=== PATIENT | female | born 1995 | race Caucasian/White ===

== ENCOUNTER 2017-05-26 09:43 | Outpatient (RCR) | payer OTHER, SELFPAY | END 2017-06-14 23:59 | LOC: NS 09:43 | PROVIDERS: Family Provider Family Medicine; PCP Family Medicine; Visit Provider Family Medicine | DX: E66.9 Obesity, unspecified (principal); Z71.3 Dietary counseling and surveillance | CPT/HCPCS: 97803 ==

== ENCOUNTER 2017-07-07 10:00 | Outpatient (RCR) | payer OTHER, SELFPAY ==
[2017-06-05 16:15] VITALS: BP 114/82
[2017-06-07 08:10] VITALS: BMI 33.0
== END 2017-07-12 23:59 ==
LOC: NS 10:00
PROVIDERS: Family Provider Family Medicine; PCP Family Medicine; Visit Provider Family Medicine
DX: E66.9 Obesity, unspecified (principal); Z71.3 Dietary counseling and surveillance
CPT/HCPCS: 97803

== ENCOUNTER 2017-08-01 12:18 | Outpatient (RCR) | payer OTHER, SELFPAY | END 2017-08-12 23:59 | LOC: NS 12:18 | PROVIDERS: Family Provider Family Medicine; PCP Family Medicine; Visit Provider Family Medicine | DX: E66.9 Obesity, unspecified (principal); Z71.3 Dietary counseling and surveillance | CPT/HCPCS: 97803 ==

== ENCOUNTER 2017-08-18 08:31 | Outpatient (RCR) | payer OTHER, SELFPAY | END 2017-08-18 08:32 | LOC: NS 08:31 | PROVIDERS: Family Provider Family Medicine; PCP Family Medicine; Visit Provider Family Medicine | DX: E66.9 Obesity, unspecified (principal); Z71.3 Dietary counseling and surveillance | CPT/HCPCS: 97803 ==

== ENCOUNTER 2017-10-06 09:45 | Outpatient (RCR) | payer OTHER, SELFPAY | END 2017-10-12 23:59 | LOC: NS 09:45 | PROVIDERS: Family Provider Family Medicine; PCP Family Medicine; Visit Provider Family Medicine | DX: E66.9 Obesity, unspecified (principal); Z71.3 Dietary counseling and surveillance | CPT/HCPCS: 97803 ==

== ENCOUNTER 2017-11-03 08:03 | Outpatient (RCR) | payer OTHER, SELFPAY | END 2017-11-11 23:59 | LOC: NS 08:03 | PROVIDERS: Family Provider Family Medicine; PCP Family Medicine; Visit Provider Family Medicine | DX: E66.9 Obesity, unspecified (principal); Z71.3 Dietary counseling and surveillance | CPT/HCPCS: 97803 ==

== ENCOUNTER 2017-11-24 08:04 | Outpatient (RCR) | payer OTHER, SELFPAY | END 2017-11-24 08:05 | disposition home or self-care (01) | LOC: NS 08:04 | PROVIDERS: Family Provider Family Medicine; PCP Family Medicine; Visit Provider Family Medicine | DX: E66.9 Obesity, unspecified (principal); Z71.3 Dietary counseling and surveillance | CPT/HCPCS: 97803 ==

== ENCOUNTER → 2018-06-25 14:40 | Outpatient (CLI) | payer OTHER, SELFPAY ==
[2018-06-25 14:31] VITALS: BMI 31.8
[2018-06-25 16:01] LABS: Absolute Lymphocyte Count 1.71 X10^3/ul (0.83-4.51); Absolute Neutrophil Count 5.9 X10^3/uL (2.0-7.7); Basophil# 0.02 X10^3/uL; Basophil% 0.2 % (0-1); Eosinophil# 0.02 X10^3/uL; Eosinophils% 0.2 % (0-5); Hematocrit 41.2 % (37-47); Hemoglobin 13.4 g/dl (12.0-15.0); Lymphocyte # 1.71 X10^3/ul (4.0); Lymphocyte % 20.5 % (19-41); Mean Corp Hgb Conc 32.5 g/gl (32-36); Mean Corpuscular Hgb 31.2 pg (27.0-32.0); Mean Corpuscular Volume 95.8 fL (81-99); Mean Platelet Vol. 12.3 fl (6.2-12.0); Monocyte# 0.68 X10^3/uL; Monocyte% 8.2 % (0-10); Neutrophil # 5.89 X10^3/uL (2.7-7.7); Neutrophil % 70.8 % (47-70); Platelet Count 170 K/mm3 (150-450); RBC Distribution Width CV 13.7 % (11.6-14.6); RBC Distribution Width SD 46.3 fl (35.1-43.9); White Blood Count 8.3 K/mm3 (4.4-11.0)
[2018-06-25 16:03] LABS: POSITIVE COUNT NO; POSITIVE DIFFERENTIAL NO; POSITIVE MORPHOLOGY NO
[2018-06-25 16:31] LABS: Follicle Stimulating Hormone 5.6 mIU/mL; Thyroid Stim Hormone (TSH) 1.31 uIU/mL (0.358-3.74)
[2018-06-28 04:09] LABS: DHEA Sulfate 221.6 ug/dL (84.8-378.0)
[2018-06-29 22:43] LABS: Testosterone Free 3.9 pg/mL (0.0-4.2)
[2018-07-04 10:45] LABS: 17-Hydroxyprogesterone 64 ng/dL (.)
== END ==
PROVIDERS: Family Provider Family Medicine; PCP Family Medicine; Referring Provider Obstetrics & Gynecology; Visit Provider Obstetrics & Gynecology
DX: E28.2 Polycystic ovarian syndrome (principal)
CPT/HCPCS: 36415; 82627; 83001; 83498; 84146; 84402; 84443; 85025; 82626

== ENCOUNTER → 2018-07-09 15:15 | Outpatient (CLI) | payer OTHER, SELFPAY ==
[2018-07-09 15:15] VITALS: BMI 34.0
== END ==
PROVIDERS: Family Provider Family Medicine; PCP Family Medicine; Referring Provider Otolaryngology Otolaryngology/Facial Plastic Surgery; Visit Provider Otolaryngology Otolaryngology/Facial Plastic Surgery
DX: J32.9 Chronic sinusitis, unspecified (principal)
CPT/HCPCS: 87070; 87205

== ENCOUNTER → 2018-09-21 | Outpatient (CLI) | payer OTHER, SELFPAY ==
[2018-07-09 15:15] VITALS: BMI 34.0
[2018-09-21 12:21] LABS: Potassium 3.9 mmol/L (3.5-5.1)
== END | disposition home or self-care (01) ==
LOC: BFHLAB 10:31
PROVIDERS: Family Provider Family Medicine; PCP Family Medicine; Visit Provider Dermatology
DX: L70.0 Acne vulgaris (principal); L71.8 Other rosacea; E28.2 Polycystic ovarian syndrome; L21.8 Other seborrheic dermatitis; Z79.899 Other long term (current) drug therapy
CPT/HCPCS: 36415; 84132

== ENCOUNTER → 2018-12-26 | Outpatient (CLI) | payer OTHER, SELFPAY ==
[2018-12-26 09:43] VITALS: BMI 34.0
[2018-12-26 10:57] LABS: Cholesterol 155 mg/dL (200); Glucose 96 mg/dL (74-106); High Density Lipoprotein 51 mg/dL; Triglycerides 113 mg/dL; Very Low Density Lipoprotein 23 mg/dL (5-40)
[2019-01-01 08:43] LABS: HPV Reflexed? NOT INDICATED
== END | disposition home or self-care (01) ==
PROVIDERS: Family Provider Family Medicine; PCP Family Medicine; Referring Provider Obstetrics & Gynecology; Visit Provider Obstetrics & Gynecology
DX: E28.2 Polycystic ovarian syndrome (principal); Z12.4 Encounter for screening for malignant neoplasm of cervix
CPT/HCPCS: 36415; 80061; 82947; 87624; 88175; G0145

== ENCOUNTER → 2019-10-18 08:50 | Outpatient (CLI) | payer OTHER, SELFPAY ==
[2018-12-26 09:43] VITALS: BMI 34.0
[2019-10-18 12:57] LABS: Potassium 3.9 mmol/L (3.5-5.1)
== END ==
PROVIDERS: PCP Family Medicine; Visit Provider Dermatology
DX: E28.2 Polycystic ovarian syndrome (principal); L21.8 Other seborrheic dermatitis; L70.0 Acne vulgaris; L71.8 Other rosacea; Z79.899 Other long term (current) drug therapy
CPT/HCPCS: 36415; 84132

== ENCOUNTER → 2020-03-13 10:46 | Outpatient (CLI) | payer OTHER, SELFPAY ==
[2020-02-27 11:19] VITALS: BMI 34.4
== END ==
PROVIDERS: PCP Family Medicine; Referring Provider Family Medicine; Visit Provider Family Medicine
DX: Z20.828 Contact with and (suspected) exposure to other viral communicable diseases (principal)
CPT/HCPCS: 87635; C9803; U0003

== ENCOUNTER → 2020-04-30 | Outpatient (CLI) | payer OTHER, SELFPAY ==
[2020-02-27 11:19] VITALS: BMI 34.4
== END | disposition home or self-care (01) ==
LOC: LABSPEC 18:16
PROVIDERS: PCP Family Medicine; Referring Provider Family Medicine; Visit Provider Family Medicine
DX: Z03.818 Encounter for observation for suspected exposure to other biological agents ruled out (principal)
CPT/HCPCS: 87635; C9803; U0003

== ENCOUNTER → 2020-09-22 13:59 | Outpatient (CLI) | payer OTHER, SELFPAY ==
[2020-02-27 11:19] VITALS: BMI 34.4
[2020-09-22 15:19] LABS: Potassium 3.5 mmol/L (3.5-5.1)
== END ==
PROVIDERS: PCP Family Medicine; Referring Provider Dermatology; Visit Provider Dermatology
DX: L70.0 Acne vulgaris (principal); Z79.899 Other long term (current) drug therapy; L21.8 Other seborrheic dermatitis; L71.8 Other rosacea; E28.2 Polycystic ovarian syndrome
CPT/HCPCS: 36415; 84132

== ENCOUNTER → 2021-03-12 08:03 | Outpatient (CLI) | payer OTHER, SELFPAY ==
[2021-03-12 09:30] LABS: Cholesterol 140 mg/dL (200); Glucose 103 mg/dL (74-106); High Density Lipoprotein 50 mg/dL; Triglycerides 107 mg/dL; Very Low Density Lipoprotein 21 mg/dL (5-40)
== END ==
PROVIDERS: PCP Family Medicine; Referring Provider Obstetrics & Gynecology; Visit Provider Obstetrics & Gynecology
DX: E28.2 Polycystic ovarian syndrome (principal)
CPT/HCPCS: 36415; 80061; 82947

== ENCOUNTER 2021-05-24 17:30 | Outpatient (RCR) | payer OTHER, SELFPAY ==
--- NOTE | 2021-05-06 11:43 | HP.OTEVAL ---
Patient's Visit Information MELISSA DA SILVA is a 25 year old F, referred to Occupational Therapy by JONATHAN FARFAN, with a diagnosis of left ulnar nerve lesion. 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 pt would like to know what she can do to alleviate her symptoms. - Pain left UE 4 Pain Intensity Range: 7 - ROM Elbow: right/left WNL ROM Comments: no ROM limitations - Strength Blintze Roller: right 55# left 40# Lateral Pinch: right 14# left 16# Tripod Pinch: right 14# left 12# Tip-to-Tip Pinch: right 10# left 4# - Sensation Thumb: right 2.83 left 2.83 Index: right 2.83 left 2.83 Middle: right 2.83 left 2.83 Ring: right 2.83 left 2.83 Little: right 2.83 left 2.83 - Quick DASH-Disab of Arm,Shoulder& Hand Quick DASH Score: 18.3325 - Goals Goal:: pt will report left UE pain no greater than 2/10 with use of left UE with ADLs and IADls by D/C Goal:: pt will demo understanding of using proper work station ergo to limit nerve tension with daily tasks by d/c Goal:: pt will demo increase in scapula strength demo by good seated posture by d.c - Rehabilitation General Assessment: pt demo with positive ulnar nerve involvement- pt dem with poor sitting posture- pt has increase symptoms of ulnar nerve involvement. Symptoms limit pts ind. with ADls and work tasks. pt would benefit from skilled OT services 2x week for 6 weeks- to return pt to her PLOF. Today therapist ed. pt on dx. computer work station ergo- ulnar nerve glides and will transition pt to posture strengthening as tolerated. Rehabilitation Potential: Good - Anticipated Interventions A/AAROM/PROM, Triggerpoint Release, Modalities, Ergonomic Education, Education re assistive Equipment, Education re Diagnosis, Home Program - Visit Plan Frequency: 2x /Week Duration: 6 Weeks General Plan: therapist will initiate ROM, ulnar nerve glides - ed. on computer work station ergo- and posture strengthening- as tolerated TEXT: Thank you for the opportunity to evaluate your patient. For Medicare and Medicare HMO plans, please review the plan of care and approve it. It will need to be FAXED BACK to us at [phone] for Medicare purposes. Please let me know if there are questions or concerns regarding this plan of care. Physician Signature: Date:
--- NOTE | 2021-05-24 17:53 | HP.OTDCSUM ---
It has been my pleasure to treat MELISSA DA SILVA under orders from JONATHAN FARFAN, for the diagnosis of left ulnar nerve lesion for a total of 6 visit(s). Please see the following information for a summary of their discharge status. 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 left lateral pinch 16# same as eval. left tripod pinch 12# same as eval. left tip pinch 6# increase from 4#. pain has decreased pt is ed. on work station and ulnar nerve glides- pt was also ed. on postural stretching to limit rolled shoulders and neck forward position with work station. pt states symptoms improved by 50%. pt demo understanding of her HEP Patient Goals: Decrease Pain, Use Hand/Wrist/Arm Normally Again, Decrease Tingling/Numbness Goal:: pt will report left UE pain no greater than 2/10 with use of left UE with ADLs and IADls by D/C pt met goal Goal:: pt will demo understanding of using proper work station ergo to limit nerve tension with daily tasks by d/c met goal Goal:: pt will demo increase in scapula strength demo by good seated posture by d.c pt met goal Plan: pt has met goals will D.C pt with HEP pt demo understanding and agrees to POC. Discharge Comments: pt was seen in OT 6 visits- pt made changes to her work station and continues with a HEP of ulnar neve glides and postural stretches and strengthening- as well as pt ed. on prolonged positioning- pt doing better and will cont with her HEP and return to dr. is symptoms return. If there are questions or concerns regarding this patient's occupational therapy, please fell free to call me at [phone]. Thank you for the referral of this patient. Sincerely, Mariann Zapata, OTR/L, CHT
== END 2021-05-24 19:00 | disposition home or self-care (01) ==
LOC: OT 17:30
PROVIDERS: PCP Family Medicine
DX: M25.532 Pain in left wrist (principal); G56.22 Lesion of ulnar nerve, left upper limb
CPT/HCPCS: 97110; 97140; 97166; 97530

== ENCOUNTER 2021-07-19 17:30 | Outpatient (RCR) | payer OTHER, SELFPAY ==
--- NOTE | 2021-06-03 09:10 | HP.OTEVAL_ITS ---
Patient's Visit Information MELISSA DA SILVA is a 25 year old F, referred to Occupational Therapy by JONATHAN FARFAN, with a diagnosis of left lateral epi. Date of Evaluation: 06/02/21 Occupational Therapist: Mariann Zapata, REUBENR/Fabio, CHT - Subjective This 25 year old female was seen for OT eval with dx of left elbow lateral epic ondylitis. pt states she has pain in AM. pt states pain comes and goes depending on what she does. pt is not sure what imitated her pain. Pt reports pain limits her IND with ADls and IADLs. 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 with ADls and IADls by d.c Goal:: pt will report pain no greater than 1/10 with use of left UE with ADls and IADls Goal:: pt will demo understanding of latera epicondylitis precautions by end of 2nd visit to avoid stress on tendon structure and limit injry. Goal:: pt will demo understanding of using braces to increase healing and limit tendon stress with ADLs by end of 2nd visit - Rehabilitation General Assessment: pt demo with palpation pain over left lateral epi. this limits pts ind. with ADls and IADls- pt would benefit from skilled OT services 2x week for 6 weeks. Today therapist ed. pt on night elbow brace, wrist brace, counterforce brace use- pt demo understanding- therapist initiated stretching and precautions to avoid stress on tendons. pt demo understanding and agree to POC Rehabilitation Potential: Good - Anticipated Interventions A/AAROM/PROM, Triggerpoint Release, Modalities, Orthoses, Joint Protection/Energy Conservation, Ergonomic Education, Education re Diagnosis - Visit Plan Frequency: 2-3x /Week Duration: 6 Weeks General Plan: follow non surgical lateral epicondylitis protocol-. use of brace. stretching and transition pt to eccentric ex. ed. on lat. epi precautions to limit further stress on tendons. TEXT: Thank you for the opportunity to evaluate your patient. For Medicare and Medicare HMO plans, please review the plan of care and approve it. It will need to be FAXED BACK to us at [phone] for Medicare purposes. Please let me know if there are questions or concerns regarding this plan of care. Physician Signature: Date:
--- NOTE | 2021-07-19 17:56 | HP.OTDCSUM ---
It has been my pleasure to treat MELISSA DA SILVA under orders from JONATHAN FARFAN, for the diagnosis of left lateral epi for a total of 11 visit(s). Please see the following information for a summary of their discharge status. 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 pt demo with increase in pain 4/10 with resistive sup/pronation- no pain. no pain with resistive wrist flex/ext Patient Goals: Decrease Pain, Use Hand/Wrist/Arm Normally Again, Be More Independent in ADLS Goal:: pt will demo a increase in left rocket test fire worker strength by 10# to increase pts ind. with ADls and IADls by d.c Goal:: pt will report pain no greater than 1/10 with use of left UE with ADls and IADls Goal:: pt will demo understanding of latera epicondylitis precautions by end of 2nd visit to avoid stress on tendon structure and limit injry. Goal:: pt will demo understanding of using braces to increase healing and limit tendon stress with ADLs by end of 2nd visit Plan: wean out of bracing-. pt to cont with posture strengthening ( high, mid low rows) along with. corner stretch. and lat.epi precautions Discharge Comments: pt was seen for 03/26 OT sessions for lateral epicondylitis- pt was ed. on use of counterforce brace- isometrics. postural strengthening.py states majority of her day she has minimal pain and has weaned out of her braces and has set up her workstation to limit stress on tendon- pt demo understanding of lat. epi precautions and at this time will cont with conservative HEP unless pts symptoms of pain increases- she is then advised to return to her Dr. for further testing/tx etc. pt demo understanding and agree to POC. If there are questions or concerns regarding this patient's occupational therapy, please fell free to call me at [phone]. Thank you for the referral of this patient. Sincerely, Mariann Zapata, OTR/L, CHT
== END 2021-07-19 19:00 | disposition home or self-care (01) ==
LOC: OT 17:30
PROVIDERS: PCP Family Medicine
DX: M77.12 Lateral epicondylitis, left elbow (principal)
CPT/HCPCS: 97035; 97110; 97140; 97166; 97530

== ENCOUNTER → 2021-10-02 | Outpatient (CLI) | payer OTHER, SELFPAY ==
[2021-10-02 09:01] LABS: Potassium 4.3 mmol/L (3.5-5.1)
== END | disposition home or self-care (01) ==
LOC: LAB 08:12
PROVIDERS: PCP Family Medicine; Referring Provider Dermatology; Visit Provider Dermatology
DX: L70.0 Acne vulgaris (principal); L71.8 Other rosacea; E28.2 Polycystic ovarian syndrome; L21.8 Other seborrheic dermatitis; Z79.899 Other long term (current) drug therapy
CPT/HCPCS: 36415; 84132

== ENCOUNTER 2021-11-29 17:00 | Outpatient (RCR) | payer OTHER, SELFPAY ==
--- NOTE | 2021-10-25 12:29 | HP.OTEVAL ---
Patient's Visit Information MELISSA DA SILVA is a 26 year old F, referred to Occupational Therapy by JONATHAN FARFAN, with a diagnosis of left lateral eip.. Date of Evaluation: 10/25/21 Occupational Therapist: Mariann Zapata, OTTiago/Fabio, CHT - Subjective This 26 year old female was seem for OT eval with dx of left lateral epi. pt was seen in our facility with same dx .. pt just had cortisone shot at elbow October 18 2021. pt states her pain decreased from a 5-6/10 pain to a 3/10 pain. pt denies that pain wakes her up at night- pt states she continues to work 10 hours 4 days a week. pt has set her home computer work station. pt would like to perform daily tasks with more strength and less pain. therapist is familiar with this pt as she has been seen in past- pt states she did stop doing her exercise when therapy stopped. Pain increased and she did not know what to do. 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 pt will demo a increase in left school bus driver/teacher assistant to 45# with elbow straight with pain no greater than 2/10 by d.c. pt will demo a increase in left lateral and tripod pinch to 8# or greater to increase pts function with ADLs. Goal:: pt will demo understanding on limiting joint hyper-ext with elbow with daily tasks to prevent tension on elbow. - Rehabilitation General Assessment: pt has been seen in past for her lateral epi- but with recent cortisone shot on October 18- pt states she has noticed a decrease in pain but difficulty for home mtg due to increase in pain- pt demo with weak school bus driver/teacher assistant and pinch strength since her D/C. Pt would benefit from skilled OT services 2x week for 6 weeks. Today therapist ed. pt on eccentric exercise for wrist ext. along with limiting her elbow hyper ext with reaching for items- pt demo understanding and agrees to POC. Rehabilitation Potential: Good - Anticipated Interventions Strengthening, Triggerpoint Release, Joint Protection/Energy Conservation, Ergonomic Education, ADL Training, Education re assistive Equipment, Education re Diagnosis - Visit Plan Frequency: 2x /Week Duration: 6 Weeks TEXT: Thank you for the opportunity to evaluate your patient. For Medicare and Medicare HMO plans, please review the plan of care and approve it. It will need to be FAXED BACK to us at [phone] for Medicare purposes. Please let me know if there are questions or concerns regarding this plan of care. Physician Signature: Date:
== END 2021-11-29 19:00 | disposition home or self-care (01) ==
LOC: OT 17:00
PROVIDERS: PCP Family Medicine
DX: M77.12 Lateral epicondylitis, left elbow (principal)
CPT/HCPCS: 97110; 97140; 97166

== ENCOUNTER 2022-03-17 13:36 | Outpatient (CLI) | payer OTHER, SELFPAY ==
[2022-03-25 14:54] LABS: HPV Reflexed? NOT INDICATED
== END 2022-03-17 23:59 | disposition home or self-care (01) ==
LOC: LABSPEC 13:36
PROVIDERS: PCP Family Medicine; Visit Provider Obstetrics & Gynecology
DX: Z12.4 Encounter for screening for malignant neoplasm of cervix (principal)
CPT/HCPCS: 88175; G0145

== ENCOUNTER → 2022-10-07 | Outpatient (CLI) | payer OTHER, SELFPAY ==
[2022-10-07 09:45] LABS: Potassium 3.9 mmol/L (3.5-5.1)
== END | disposition home or self-care (01) ==
LOC: LAB 08:51
PROVIDERS: Visit Provider Dermatology
DX: L70.0 Acne vulgaris (principal); L71.8 Other rosacea; E28.2 Polycystic ovarian syndrome; L21.8 Other seborrheic dermatitis; Z79.899 Other long term (current) drug therapy
CPT/HCPCS: 36415; 84132

== ENCOUNTER → 2023-03-24 | Outpatient (CLI) | payer OTHER, SELFPAY ==
[2023-03-24 09:20] LABS: Absolute Lymphocyte Count 2.33 X10^3/uL (0.83-4.51); Absolute Neutrophil Count 3.6 X10^3/uL (2.0-7.7); Basophil# 0.06 X10^3/uL; Basophil% 0.9 % (0-1); Eosinophil# 0.03 X10^3/uL; Eosinophils% 0.4 % (0-5); Hematocrit 41.3 % (37-47); Hemoglobin 13.4 g/dL (12.0-15.0); Lymphocyte # 2.33 X10^3/ul (0.83-4.51); Lymphocyte % 34.9 % (19-41); Mean Corp Hgb Conc 32.4 g/dL (32-36); Mean Corpuscular Hgb 30.2 pg (27.0-32.0); Mean Corpuscular Volume 93.2 fL (81-99); Mean Platelet Vol. 11.6 fl (6.2-12.0); Monocyte# 0.62 X10^3/uL; Monocyte% 9.3 % (0-10); NRBC Flagged by Analyzer 0 % (0-5); Neutrophil # 3.63 X10^3/uL (2.7-7.7); Neutrophil % 54.4 % (47-70); Platelet Count 195 K/mm3 (150-450); RBC Distribution Width CV 12.7 % (11.6-14.6); RBC Distribution Width SD 43.4 fl (35.1-43.9); Red Blood Count 4.43 M/mm3 (4.2-5.4); White Blood Count 6.7 K/mm3 (4.4-11.0)
[2023-03-24 09:41] LABS: Hemoglobin A1c 5.1 % (3.8-5.6)
[2023-03-24 09:44] LABS: ALB/GLOB Ratio 0.8 RATIO (0.9-2.4); AST(SGOT) 212 U/L (15-37); Alanine Aminotransfer ALT/SGPT 194 U/L (13-56); Albumin, Serum 3.2 g/dL (3.2-5.0); Alkaline Phosphatase 75 U/L (45-117); Anion Gap 11 (5-15); BUN 8 mg/dL (7-18); Calcium,Total 8.8 mg/dL (8.5-10.1); Chloride 108 mmol/L (98-107); Cholesterol 159 mg/dL (200); Creatinine, Serum 0.73 mg/dL (0.55-1.02); EST Glomerular Filtration Rate 100 mL/min (>60); Est Glom Filt Rate - Afr Amer 121 mL/min (>60); Glucose 113 mg/dL (74-106); High Density Lipoprotein 61 mg/dL; Potassium 3.9 mmol/L (3.5-5.1); Protein, Total 7.2 g/dL (6.4-8.2); Sodium Level 141 mmol/L (136-145); Thyroid Stim Hormone (TSH) 2.08 uIU/mL (0.358-3.74); Triglycerides 105 mg/dL; Very Low Density Lipoprotein 21 mg/dL (5-40)
[2023-03-27 11:08] LABS: Vitamin D 1,25-Dihydroxy 69.7 pg/mL (24.8-81.5)
== END | disposition home or self-care (01) ==
LOC: LAB 08:07
PROVIDERS: Referring Provider Obstetrics & Gynecology; Visit Provider Obstetrics & Gynecology
DX: E66.8 Other obesity (principal)
CPT/HCPCS: 36415; 80053; 80061; 82652; 83036; 84443; 85025

== ENCOUNTER → 2023-03-29 | Outpatient (CLI) | payer OTHER, SELFPAY ==
[2023-03-29 06:52] LABS: International Normalized Ratio 1.1; Prothrombin Time (Protime)PT. 13.8 SECONDS (11.7-14.9)
[2023-04-10 09:07] LABS: Ceruloplasmin 45.2 mg/dL (19.0-39.0); Copper, Serum or Plasma 215 ug/dL (80-158); HEPATITIS B SURFACE AG Negative (Negative); Hep C Antibodies Non Reactive (Non Reactive); Hepatitis A IgM Antibody Negative (Negative); Hepatitis B Core AB IgM Negative (Negative)
== END | disposition home or self-care (01) ==
LOC: LAB 06:13
PROVIDERS: Referring Provider Obstetrics & Gynecology; Visit Provider Obstetrics & Gynecology
DX: R74.8 Abnormal levels of other serum enzymes (principal)
CPT/HCPCS: 36415; 80074; 82390; 82525; 85610

== ENCOUNTER → 2023-04-03 | Outpatient (CLI) | payer OTHER, SELFPAY ==
--- NOTE | 2023-04-03 07:48 | US_ITS ---
STUDY: ABDOMINAL ULTRASOUND - ELASTOGRAPHY REASON FOR VISIT: Female, 27 years old. Elevated liver enzymes TECHNIQUE: Liver stiffness measurements were obtained on a BevSpot RS 85 ultrasound machine using a CA 1-7 probe following the SRU guidelines. 3 measurements were obtained using a 2-D-SWE method. TECHNICAL QUALITY: Adequate. COMPARISON: None FINDINGS: Liver: There is no demonstrated mass lesion. Site A: Median velocity value 5.3 kPa,1.32 m/s. IQR/median value kPa% 28.3%. IQR/median value m/s%, 13.3%. Site B: Median velocity value 7.6 kPa, 1.59 m/s. IQR/median value kPa% 15.1%. IQR/median value m/s%, 7.2%. Site C: Median velocity value 6.2 kPa,1.43 m/s. IQR/median value kPa% 8.9 %. IQR/median value m/s%, 5.2%. Average: Median velocity value 6.3 kPa,1.42 m/s. US/ABD Limited w/ Elastography IMPRESSION: Liver stiffness measures 6.3 kPa compatible with F2-F3 Metavir score. Electronically Signed: Kal Oconnell MD ([place]) at 9:42 EST ,
== END | disposition home or self-care (01) ==
PROVIDERS: PCP Nurse Practitioner Family; Referring Provider Obstetrics & Gynecology; Visit Provider Obstetrics & Gynecology
DX: R74.8 Abnormal levels of other serum enzymes (principal)
CPT/HCPCS: 76705; 76981

== ENCOUNTER → 2023-06-20 | Outpatient (CLI) | payer OTHER, SELFPAY ==
--- OUTSIDE RECORDS SUMMARY | 2023-06-20 06:20 | XMS RPT_ITS | CCD ---
Author Name Unknown Address [address] [place] [address] Organization [facility] Care Team Providers Care Staff Development Educator Name Role Phone MADALYN HELM Unavailable Unavailable AIDAN DEAN Unavailable Unavailable Eva Goldman Primary Care Provider [phone] Allergies Allergy Classification Reported Allergen(s) Allergy Type Date of Onset Reaction(s) Facility (2 sources) carBAMazepine; Translations: [CARBAMAZEPINE] Drug Allergy 09-27-2017 Anaphylaxis [facility] Rep[facility] (1 source) DULoxetine; Translations: [DULOXETINE] Drug Allergy 09-27-2017 AOF [facility] Medications Current Medications Medication Drug Class(es) Dates Sig (Normalized) Sig (Original) NON FORMULARY (1 source) NON FORMULARY Re new Care Probiotic 30billion 0 Active zinc gluconate 50 mg oral tablet (1 source) zinc gluconate 5 0 mg tablet Take by mouth once daily. 0 Active Problems Problem Classification Problem Date Documented Da te Episodic/Chronic Other liver diseases (2 sources) Elevated liver enzymes level; Translations: [Abnormal levels of other serum enzymes] Onset: 06-19-2023 06-19-2023 Episodic Other nervous system disorders (1 source) Trigeminal neuralgia; Translations: [Trigeminal neuralgia] Onset: 09-27-2017 Episodic Results Test Name Value Interpretation Reference Range Facil ity Vital Signs Date Time Vital Sign Value Performing Clinician Fanny meadows 06-19-2023 09:30-0500 Body height 160 cm Henrik Spencer [employer] Work Phone: [facility] 06-19-2023 09:30-0500 Body mass index (BMI) [Ratio] 35.43 kg/m2 Henrik Tj [employer] Work Phone: [facility] 06-19-2023 09:30-0500 Body weight 90.72 kg Henrik Spencer DO Work Phone: [facility] Encounters Encounter Date Encounter Type Care Provider Facility Start: 06-19-2023 End: 06-19-2023 Office outpatient new 45 minutes Henrik Spencer DO Work Phone: [facility] Procedures Date Procedure Procedure Detail Performing Clinician Start: 12-26-2018 Microscopic observat ion [Identifier] in Cervix by Cyto stain Henrik Spencer DO Work Phone: Plan of Treatment Date Care Activity Detail Author Start: 2043 Zoster Vaccines (1 o f 2) Zoster Vaccines (1 of 2) [facility] Start: 07-20-2023 End: 07-20-2023 Patient encounter procedure 07/20/2023 3:45 PM EST Office Visit [facility] [address] [place] [id number] Henrik Spencer DO [address] [facility] [place] [address] [facility] Start: 06-19-2023 End: 06-19-2024 Alpha-1 Antitrypsin Phenotype Alpha-1 Antitrypsin Phenotype Lab Routine Elevated liver enzymes Expected: 06/19/2023 (Approximate), Expires: 06/19/2024 [facility] Work Phone: Payers Date Payer Category Payer Unknown [employer] [place] [employer] [facility] [id number] 2022-Present [address] [place] [address] [id number] Social History Date Type Detail Facility Start: 06-19-2023 Tobacco smoking stat us NHIS Never smoked tobacco [facility] Work Phone: Start: 06-19-2023 Tobacco use and exposure Smokeless tobacco non-user [facility] Work Phone: Start: 06-19-2023 Alcohol intake Lifetime non-d carley (finding) [facility] Work Phone: Start: 1995 Sex Assigned At Not on file [facility] Work Phone: Gender identity Not on file [facility] Start: 06-09-2023 End: 06-19-2023 Exposure to SARS-CoV-2 (event) Not sure [facility] History of Present illness Narrative 06-19-2023 Henrik Spencer, DO - 06/19/2023 9:15 AM EST Note Date & Type Note Facility 06-19-2023 History of Present illness Narrative Subjective Patient ID: Eva Marrufo is a 28 y.o. female who presents for New Patient Visit (Pt seen today for elevated liver enzymes blood work at [facility]. Patient denies any GI complaints at this time. ). HPI 28-year-old female referred for abnormal liver enzymes. Elevated AST ALT over 2 years. Peak level 220 normal bilirubin normal alkaline phosphatase. Lab work showed elevated copper level at 215 upper limit normal 145, elevated ceruloplasmin at 45 upper limit normal 40. Patient is recently stopped oral contraceptives 6 weeks ago. Underwent FibroScan of her liver revealing homogeneous liver pattern consistent with fatty liver with mild steatohepatitis. She presents today for second opinion. Lab work included TSH but no zinc level. She denies any abdominal pain no bloating no nausea no diarrhea. No skin rashes no easy bruising no jaundice. Family history negative for anyone who of liver failure or dementia other than a grandmother who in her 80s from Alzheimer's dementia. Review of Systems Constitutional: Negative. HENT: Negative. Eyes: Negative. Respiratory: Negative. Cardiovascular: Negative. Endocrine: Negative. Genitourinary: Negative. Neurological: Negative. Hematological: Negative. Objective Physical Exam Vitals and nursing note reviewed. Constitutional: Appearance: Normal appearance. HENT: Head: Normocephalic. Mouth/Throat: Mouth: Mucous membranes are moist. Pharynx: Oropharynx is clear. Eyes: Conjunctiva/sclera: Conjunctivae normal. Pupils: Pupils are equal, round, and reactive to light. Cardiovascular: Pulses: Normal pulses. Heart sounds: Normal heart sounds. Pulmonary: Effort: Pulmonary effort is normal. Breath sounds: Normal breath sounds. Abdominal: General: Abdomen is flat. Bowel sounds are normal. Palpations: Abdomen is soft. Musculoskeletal: Cervical back: Normal range of motion and neck supple. Skin: General: Skin is warm and dry. Neurological: General: No focal deficit present. Mental Status: She is alert and oriented to person, place, and time. Psychiatric: Behavior: Behavior normal. Assessment/Plan Diagnoses and all orders for this visit: Elevated liver enzymes - Anti-Smooth Muscle Antibody; Future - Anti-Mitochondrial Antibody; Future - Alpha-1 Antitrypsin Phenotype; Future - Iron and TIBC; Future - Ferritin; Future - MONSE with Reflex to BEATRIZ; Future Transaminitis need to exclude other causes of liver injury. Suspect elevated ceruloplasmin from oral contraceptives. Will need to repeat copper and ceruloplasmin level after she has been on it for contraceptives for approximately 4 months. If they remain elevated and above testing is negative then would recommend liver biopsy and referral to metallurgy laboratory technician. Henrik Spencer DO 06/19/23 9:35 AM documented in this encounter [facility] Work Phone: Evaluation note Note Date & Type Note Facility documented in this encounter [facility] Work Phone: Summary Purpose Family History No Family History Records Found Advance Directives No Advanced Directives Records Found Additional Source Comments INFORMATION SOURCE (unrecogn ized section and content) Reason for Visit (unrecogniz ed section and content) Care Teams (unrecognized sec tion and content) FOR RECORDS PERTAINING TO PATIENTS WHO ARE OR HAVE BEEN ENROLLED IN A CHEMICAL DEPENDENCY/SUBSTANCEABUSE PROGRAM, SOME INFORMATION MAY BE OMITTED. This clinical summary was aggregated from multiple sources. Caution should be exercised in using it in the provision of clinical care. This summary normalizes information from multiple sources, and as a consequence, information in this document may materially change the coding, format and clinical context of patient data. In addition, data may be omitted in some cases. CLINICAL DECISIONS SHOULD BE BASED ON THE PRIMARY CLINICAL RECORDS. [facility]. provides no warranty or guarantee of the accuracy or completeness of information in this document.
[2023-06-20 10:20] LABS: Ferritin 47 ng/mL (8-252); Iron 99 ug/dL (50-170); Iron Binding Capacity,Total 376 ug/dL (250-450); PERCENT IRON SATURATION 26.3 % (15.0-55.0)
[2023-06-21 14:09] LABS: ANTINUCLEAR ANTIBODIES DIRECT Negative (Negative); Anti-Mitochondrial AB <20.0 Units (0.0-20.0); Anti-Smooth Muscle ABS 4 Units (0-19)
== END | disposition home or self-care (01) ==
PROVIDERS: PCP Nurse Practitioner Family; Referring Provider Internal Medicine; Visit Provider Internal Medicine
DX: R74.8 Abnormal levels of other serum enzymes (principal)
CPT/HCPCS: 36415; 82728; 83516; 83540; 83550; 86038; 86225; 86235

== ENCOUNTER → 2023-10-06 | Outpatient (CLI) | payer OTHER, SELFPAY ==
[2023-10-06 07:47] LABS: Potassium 3.7 mmol/L (3.5-5.1)
== END | disposition home or self-care (01) ==
LOC: LAB 06:17
PROVIDERS: PCP Nurse Practitioner Family; Visit Provider Dermatology
DX: L70.0 Acne vulgaris (principal); L71.8 Other rosacea; E28.2 Polycystic ovarian syndrome; L21.8 Other seborrheic dermatitis; Z79.899 Other long term (current) drug therapy
CPT/HCPCS: 36415; 84132

== ENCOUNTER → 2024-01-17 | Outpatient (CLI) | payer OTHER, SELFPAY ==
[2024-01-17 08:07] LABS: ALB/GLOB Ratio 1.2 RATIO (0.9-2.4); AST(SGOT) 12 U/L (15-37); Alanine Aminotransfer ALT/SGPT 16 U/L (13-56); Albumin, Serum 4.4 g/dL (3.2-5.0); Alkaline Phosphatase 63 U/L (45-117); Anion Gap 7 (5-15); BUN 11 mg/dL (7-18); BUN/Creat Ratio 15.1 RATIO (10-20); Calcium,Total 9.8 mg/dL (8.5-10.1); Chloride 107 mmol/L (98-107); Creatinine, Serum 0.73 mg/dL (0.55-1.02); EST Glomerular Filtration Rate 99 mL/min (>60); Est Glom Filt Rate - Afr Amer 120 mL/min (>60); Globulin 3.7 g/dL (2.2-4.2); Glucose 93 mg/dL (74-106); Potassium 3.7 mmol/L (3.5-5.1); Protein, Total 8.1 g/dL (6.4-8.2); Sodium Level 139 mmol/L (136-145)
== END | disposition home or self-care (01) ==
LOC: LAB 06:13
PROVIDERS: PCP Nurse Practitioner Family; Referring Provider Internal Medicine; Visit Provider Internal Medicine
DX: K76.0 Fatty (change of) liver, not elsewhere classified (principal)
CPT/HCPCS: 36415; 80053; 82248

== ENCOUNTER → 2024-01-19 | Outpatient (CLI) | payer OTHER, SELFPAY ==
--- NOTE | 2024-01-19 08:22 | US_ITS ---
STUDY: ABDOMINAL ULTRASOUND - RIGHT UPPER QUADRANT; ELASTOGRAPHY REASON FOR VISIT: Female, 28 years old. Fatty infiltration of the liver. TECHNIQUE: Ultrasound evaluation of the right upper quadrant was performed with real-time and static valentin-scale imaging. Point quantification shear wave elastography was performed ([employer]). TECHNICAL QUALITY: Adequate. COMPARISON: Comparison is made with prior study dated April 03, 2023. FINDINGS: Liver: The liver measures 15.8 cm. There is increased echogenicity consistent with fatty infiltration. The bile ducts are within normal limits. There is hepatic color flow. The direction of portal flow is hepatopetal. There is no demonstrated mass lesion. Median liver stiffness measured 7.2 kPa. Gallbladder: Normal distended gallbladder. The gallbladder wall measures 1.6 mm. There is a negative sonographic Guerrero''s sign. There is no pericholecystic fluid. There are no gallstones. Common Bile Duct (C.B.D.): The common bile duct measures 2 mm. Pancreas: There is normal echogenicity of the visualized pancreas. There is no demonstrated pancreatic mass or cyst. Right Kidney: Normal size of the right kidney. The right kidney measures 12.5 cm x 5.7 cm x 4.1 cm. Normal renal cortex. The right cortex measures 1 cm. There is no demonstrated renal mass or cyst. There is no right hydronephrosis. US/ABD Limited w/ Elastography IMPRESSION: 1. Liver stiffness measures 7.2 kPa compatible with F2-F3 (Mild to moderate liver fibrosis) Metavir score. Electronically Signed: Quique White MD at 9:11 EDT ,
== END | disposition home or self-care (01) ==
PROVIDERS: PCP Nurse Practitioner Family; Referring Provider Internal Medicine; Visit Provider Internal Medicine
DX: K76.0 Fatty (change of) liver, not elsewhere classified (principal); R74.8 Abnormal levels of other serum enzymes
CPT/HCPCS: 76705; 76981

== ENCOUNTER → 2024-11-29 | Outpatient (CLI) | payer OTHER, SELFPAY ==
--- OUTSIDE RECORDS SUMMARY | 2024-11-29 07:16 | XMS RPT_ITS | CCD ---
Author Organization [facility] Care Team Providers Care Barrel Filler Head Name Role Phone HELMMADALYN Unavailable Unavailable AIDAN DEAN Unavailable Unavailable Dr. Harry Francis Primary Care Provider [phone] Dr. Harry Francis Referring Provider [phone] ASHLEIGH Pink Attending Provider Dr. Oriana Li Attending Provider Dr. Harry Francis Referring Provider Unavailable Dr. 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 LEAD, [place] Primary Care Provider THOMAE, HENRIK R Attending Unavailable [place]WA[place], [place] Primary Care Unavailable THOMAE, HENRIK R Attending Unavailable [place]WA[place], [place] Primary Care Unavailable THOMAE, HENRIK R Attending Unavailable [place], [place] Primary Care Unavailable Thomae DO, Henrik R Unavailable Thomae, Henrik Attending Unavailable Dwaine, [place] Primary Care Unavailable Thomae, Henrik Referring Unavailable Thomae, Henrik Attending Unavailable Dwaine, [place] Primary Care Unavailable Thomae, Henrik Referring Unavailable Dwaine, [place] Primary Care Unavailable BRISEIDA RIVAS Attending Unavailable Dwaine, Melissa Referring Unavailable Dwaine, [place] Primary Care Unavailable Oriana Li Attending Unavailable Thomae, Henrik Attending Unavailable Dwaine, [place] Primary Care Unavailable Thomae, Henrik Referring Unavailable Allergies Allergy Classification Reported Allergen(s) Allergy Type Date of Onset Reaction(s) Facility (13 sources) carBAMazepine; Translations: [CARBAMAZEPINE] Drug Allergy 09-27-2017 Anaphylaxis [facility] Repository (1 source) DULoxetine; Translations: [DULOXETINE] Drug Allergy 09-27-2017 AOF [facility] Repository Medications Current Medications Medication Drug Class(es) Dates Sig (Normalized) Sig (Original) Norgestimate-Ethin yl Estradiol (20 sources) Progestin, Estrogen Start: 03-23-2023 take 1 tablet by mouth once daily Norgestimate-Ethi nyl Estradiol (Sprintec (28)) 0.25-35 mg-mcg tablet Active 1 TABLET PO daily March 23, 2023 11:50am Start: 03-17-2022 End: 03-23-2023 take 1 tablet by mouth once daily Norgestimate-Ethinyl Estradiol (Sprintec (28)) 0.25-35 mg-mcg tablet Discontinued 1 TABLET PO daily March 17, 2022 10:40am March 23, 2023 11:51am Start: 03-17-2022 take 1 tablet by qamar th once daily Norgestimate-Ethinyl Estradiol (Sprintec (28)) 0.25-35 mg-mcg tablet Active 1 TABLET PO daily March 17, 2022 11:40am Start: 03-17-2022 take 1 tablet by qamar th once daily Norgestimate-Ethinyl Estradiol (Sprintec (28)) 0.25-35 mg-mcg tablet Active 1 TABLET PO daily March 17, 2022 10:40am Start: 03-08-2021 End: 03-17-2022 take 1 tablet by mouth once daily Norgestimate-Ethinyl Estradiol (Sprintec (28)) 0.25-35 mg-mcg tablet Discontinued 1 TABLET PO daily March 08, 2021 1:17pm March 17, 2022 11:40am Start: 03-08-2021 End: 03-17-2022 take 1 tablet by mouth once daily Norgestimate-Ethinyl Estradiol (Sprintec (28)) 0.25-35 mg-mcg tablet Discontinued 1 TABLET PO daily March 08, 2021 12:17pm March 17, 2022 10:40am Start: 03-08-2021 take 1 tablet by qamar th once daily Norgestimate-Ethinyl Estradiol (Sprintec (28)) 0.25-35 mg-mcg tablet Active 1 TABLET PO daily March 08, 2021 1:17pm Start: 02-27-2020 End: 03-08-2021 take 1 tablet by mouth once daily Norgestimate-Ethinyl Estradiol (Sprintec (28)) 0.25-35 mg-mcg tablet Discontinued 1 TABLET PO daily 84 February 27, 2020 10:38am March 08, 2021 12:17pm Start: 02-27-2020 End: 03-08-2021 take 1 tablet by mouth once daily Norgestimate-Ethinyl Estradiol (Sprintec (28)) 0.25-35 mg-mcg tablet Discontinued 1 TABLET PO daily 84 February 27, 2020 11:38am March 08, 2021 1:17pm Start: 11-01-2019 End: 02-27-2020 take 1 tablet by mouth once daily Norgestimate-Ethinyl Estradiol (Sprintec (28)) 0.25-35 mg-mcg tablet Discontinued 1 TABLET PO daily 84 November 01, 2019 10:06am February 27, 2020 10:38am Start: 11-01-2019 End: 02-27-2020 take 1 tablet by mouth once daily Norgestimate-Ethinyl Estradiol (Sprintec (28)) 0.25-35 mg-mcg tablet Discontinued 1 TABLET PO daily 84 November 01, 2019 11:06am February 27, 2020 11:38am Start: 05-16-2019 End: 11-01-2019 take 1 tablet by mouth once daily Norgestimate-Ethinyl Estradiol (Sprintec (28)) 0.25-35 mg-mcg tablet Discontinued 1 TABLET PO daily 84 May 16, 2019 1:10pm November 01, 2019 10:06am Start: 05-16-2019 End: 11-01-2019 take 1 tablet by mouth once daily Norgestimate-Ethinyl Estradiol (Sprintec (28)) 0.25-35 mg-mcg tablet Discontinued 1 TABLET PO daily 84 May 16, 2019 2:10pm November 01, 2019 11:06am Start: 06-27-2018 End: 05-16-2019 take 1 tablet by mouth once daily Norgestimate-Ethinyl Estradiol (Sprintec (28)) 0.25-35 mg-mcg tablet Discontinued 1 TABLET PO daily June 27, 2018 5:31pm May 16, 2019 2:10pm Start: 06-27-2018 End: 05-16-2019 take 1 tablet by mouth once daily Norgestimate-Ethinyl Estradiol (Sprintec (28)) 0.25-35 mg-mcg tablet Discontinued 1 TABLET PO daily June 27, 2018 1:00am May 16, 2019 2:10pm Start: 06-27-2018 End: 05-16-2019 take 1 tablet by mouth once daily Norgestimate-Ethinyl Estradiol (Sprintec (28)) 0.25-35 mg-mcg tablet Discontinued 1 TABLET PO daily June 27, 2018 12:00am May 16, 2019 1:10pm NON FORMULARY (3 sources) NON FORMULARY Re new Care Probiotic 30billion Active NON FORMULARY Re new Care Probiotic 30billion 0 Active zinc gluconate 50 mg oral ta blet (3 sources) zinc gluconate 5 0 mg tablet Take by mouth once daily. Active Completed/Discontinued Medications Medication Drug Class(es) Dates Sig (Normalized) Sig (Original) amitriptyline hydrochloride 10 mg oral tablet (7 sources) Tricyclic Antidepressant Start: 05-17-2017 End: 06-05-2017 take 10 mg by mouth once Amitriptyline Discontinued 10 MG PO ONCE May 17, 2017 12:00am June 05, 2017 4:17pm amoxicillin 875 mg oral tablet (7 sources) Penicillin-class Antibacterial Start: 06-30-2018 End: 12-26-2018 take 875 mg by mouth twice daily Amoxicillin Discontinued 875 MG PO TWICE A DAY June 30, 2018 12:00am December 26, 2018 8:42am amoxicillin 875 mg / clavulanate 125 mg oral tablet (7 sources) Penicillin-class Antibacterial Start: 06-05-2017 End: 06-15-2017 take 1 tablet by mouth every twelve hours Amoxicillin-Pot Clavulanate (Augmentin) 875-125 mg tablet Discontinued 1 TABLET PO Q12H 03 03June 05, 2017 12:00am June 15, 2017 12:06am Antioxidiant Lotion (7 sources) Start: 04-08-2017 End: 06-25-2018 Antioxidiant Lotion Discontinued 1 APPLIC TP DAILY April 08, 2017 10:28am June 25, 2018 2:55pm Start: 04-08-2017 End: 06-25-2018 Antioxidiant Lotion Disconti nued 1 APPLIC TP DAILY April 08, 2017 1:00am June 25, 2018 2:55pm Start: 04-08-2017 End: 06-25-2018 Antioxidiant Lotion Disconti nued 1 APPLIC TP DAILY April 08, 2017 12:00am June 25, 2018 1:55pm Benzoyl Peroxide (7 sources) Start: 04-08-2017 End: 06-25-2018 take 2 tablets by mouth once daily Clear Skin Discontinued 2 TABLET PO DAILY April 08, 2017 10:28am June 25, 2018 2:55pm Start: 04-08-2017 End: 06-25-2018 take 2 tablets by mouth once daily Clear Skin Discontinued 2 TABLET PO DAILY April 08, 2017 1:00am June 25, 2018 2:55pm Start: 04-08-2017 End: 06-25-2018 take 2 tablets by mouth once daily Clear Skin Discontinued 2 TABLET PO DAILY April 08, 2017 12:00am June 25, 2018 1:55pm 12 hr carBAMazepine 200 mg extended release oral capsule (7 sources) Mood Stabilizer Start: 04-08-2017 End: 06-05-2017 take 200 mg by mouth twice daily Carbamazepine Discontinued 200 MG PO TWICE A DAY April 08, 2017 12:00am June 05, 2017 4:16pm fluticasone propionate 0.05 mg/actuat metered dose nasal spray (7 sources) Corticosteroid Start: 06-30-2018 End: 12-26-2018 take 1 spray(s) nasal route once daily Fluticasone Propionate (Flonase Allergy Relief) 50 mcg/actuation spray,suspension Discontinued 2 SPRAY INTRANASAL DAILY 9.9 June 30, 2018 12:00am December 26, 2018 8:42am administer into each nostril gabapentin 100 mg oral capsule (7 sources) Anti-epileptic Agent Start: 06-05-2017 End: 06-25-2018 take 100 mg by mouth once daily Gabapentin Discontinued 100 MG PO daily June 05, 2017 12:00am June 25, 2018 1:55pm Green Tea Cleanser (7 sources) Start: 04-08-2017 End: 06-25-2018 Green Tea Cleanser Discontinued 1 APPLIC PO DAILY April 08, 2017 10:28am June 25, 2018 2:55pm Start: 04-08-2017 End: 06-25-2018 Green Tea Cleanser Discontin ued 1 APPLIC PO DAILY April 08, 2017 1:00am June 25, 2018 2:55pm Start: 04-08-2017 End: 06-25-2018 Green Tea Cleanser Discontin ued 1 APPLIC PO DAILY April 08, 2017 12:00am June 25, 2018 1:55pm ivermectin 10 mg/ml topical cream (7 sources) Antiparasitic, Pediculicide Start: 04-08-2017 End: 06-05-2017 Ivermectin Discontinued 1 APPLIC TP DAILY April 08, 2017 12:00am June 05, 2017 4:17pm Promised Cream (7 sources) Start: 04-08-2017 End: 06-05-2017 Promised Cream Discontinued 1 APPLIC TP DAILY April 08, 2017 10:28am June 05, 2017 5:17pm Start: 04-08-2017 End: 06-05-2017 Promised Cream Discontinued 1 APPLIC TP DAILY April 08, 2017 1:00am June 05, 2017 5:17pm Start: 04-08-2017 End: 06-05-2017 Promised Cream Discontinued 1 APPLIC TP DAILY April 08, 2017 12:00am June 05, 2017 4:17pm spironolactone 50 mg oral tablet (20 sources) Aldosterone Antagonist Start: 06-25-2018 End: 03-23-2023 take 1 tablet by mouth twice daily Spironolactone (Aldactone) 50 mg tablet Discontinued 50 MG PO TWICE A DAY 180 90 March 17, 2022 10:40am March 23, 2023 11:51am Problems Active Problems Problem Classification Problem Date Documented Da te Episodic/Chronic Headache; including migraine (7 sources) Cervicogenic headache; Translations: [Cervicogenic headache] 05-23-2017 Episodic Immunizations and screening for infectious disease (8 sources) Contact with and (suspected) exposure to other viral communicable diseases; Translations: [Contact with or suspected exposure to other viral communicable disease] Episodic Other bone disease and musculoskeletal deformities (14 sources) Segmental and somatic dysfunction; Translations: [Segmental and somatic dysfunction of cervical region] 05-17-2017 Episodic Other endocrine disorders (7 sources) Polycystic ovary; Translations: [Polycystic ovarian syndrome] 03-08-2021 Chronic Other female genital disorders (7 sources) Abnormal uterine bleeding; Translations: [Abnormal uterine and vaginal bleeding, unspecified] 03-08-2021 Chronic Other liver diseases (6 sources) Fatty (change of) liver, not elsewhere classified; Translations: [Other chronic nonalcoholic liver disease] Onset: 07-20-2023 07-20-2023 Chronic Other liver diseases (3 sources) Abnormal levels of other serum enzymes; Translations: [Abnormal levels of other serum enzymes] Onset: 06-19-2023 Episodic Other nervous system disorders (1 source) Trigeminal neuralgia; Translations: [Trigeminal neuralgia] Onset: 09-27-2017 Episodic Other nutritional; endocrine; and metabolic disorders (3 sources) Obesity; Translations: [Other obesity] 03-23-2023 Chronic Other nutritional; endocrine; and metabolic disorders (3 sources) Body mass index 30+ - obesity; Translations: [Body mass index (BMI) 36.0-36.9, adult] 03-23-2023 Chronic Other nutritional; endocrine; and metabolic disorders (3 sources) Body mass index (BMI) 36.0-36.9, adult; Translations: [Body Mass Index 36.0-36.9, adult] 03-23-2023 Chronic Other nutritional; endocrine; and metabolic disorders (3 sources) Other obesity; Translations: [Obesity, unspecified] 03-23-2023 Chronic Other skin disorders (7 sources) Acne; Translations: [Acne, unspecified] 06-25-2018 Episodic Other upper respiratory infections (15 sources) Acute sinusitis; Translations: [Acute sinusitis, unspecified] Episodic Past or Other Problems Problem Classification Problem Date Documented Da te Episodic/Chronic Other liver diseases (6 sources) Elevated liver enzymes level; Translations: [Abnormal levels of other serum enzymes] Onset: 06-19-2023 03-28-2023 Episodic Results Test Name Value Interpretation Reference Range Facility Freight Dispatcher Office Visit Reporton 04-08-2024 Freight Dispatcher Office Visit Report [facility] [address], [address] [place] [address] OFFICE VISIT Date of Service: 04/08/24 MR#: [id number] Acct: [id number] Name: MELISSA MARRUFO Rep #: [id number] : 1995 Provider: Dr. 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 Required: No Is patient in pain?: No Feel stressed/tense/nervous/a nxious/difficulty sleeping: not at all Allergies carbamazepine (From Tegretol) Allergy (Intermediate, Verified 04/08/24 10:11) chest pain Medications ???Medication ???Instructions ???Recorded ???Confirmed ???Type spironolactone 50 mg tablet 50 mg PO BID 3 months #180 tabs 03/23/23 04/08/24 Rx (Aldactone) Is last menstrual period known: Yes Last Menstrual Period: 04/01/24 Post menopausal: No Patient : No : No [facility] Medical History (Updated 04/08/24 @ 10:15 by Trinity Pineda) Fatty liver Acne Allergic drug reaction Back pain Bilateral headaches Surgical History H/O partial cystectomy Family History Other Anxiety Diabetes Hypertension Myocardial infarction Social History alcohol intake: never substance use type: does not use caffeine: Yes what type of physical activity do you participate in: other details: elliptical frequency: 5-6 times per week seatbelt use: always do you feel safe at home: Yes 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 Patient seeing Dr. Goodwin for liver issues and labs have recently been done there. Female Reproductive History Last Menstrual Period: 04/01/24 Cycle Length: 21-35 Bleeding Duration: 5 Questions: metorrhagia: No, sexually active: Yes, dyspareunia: No and PCB: No Menopausal Symptoms: No hot flashes, No night sweats, No weight change, No mood changes, No difficulty concentrating, No sleep problems and No change in libido ROS Const Constitutional: Reports as per HPI; Denies fatigue, increased appetite, poor appetite, night sweats, weight gain or weight loss Cardio Card: Denies chest pain Resp Resp: Denies cough or dyspnea GI GI: Reports as per HPI; Denies abdominal pain, bloating, constipation, nausea or vomiting : Reports as per HPI and other; Denies difficulty voiding, dysuria, hematuria, hot flashes, nipple discharge, pelvic pain, prolapse symptoms, urinary frequency, urinary incontinence, urinary urgency, vaginal discharge, vaginal dryness, vaginal odor or vaginal pruritus Skin Skin/Breast: Denies changing lesions, breast mass, breast pain, breast skin changes or nipple discharge Psych Psych: Denies anxiety, change in libido, depression or difficulty concentrating Exam Const General: cooperative, healthy appearing, comfortable, no acute distress, well developed and well groomed HENMT Head: normal to inspection and normocephalic Ears: hearing grossly normal bilaterally and external ears normal Nose: external nose normal Face and sinus: normal facial exam Neck Neck: normal visual inspection, full ROM and no lymphadenopathy Thyroid: thyroid normal Chest Chest palpation inspection: normal inspection of the chest Breast inspection: normal inspection of the breasts and normal inspection of the axillae Breast palpation: normal palpation of the breasts, normal palpation of the axillae and no axillary lymphadenopathy Resp Effort Inspection: normal respiratory effort GI Inspection: normal to inspection and non-distended Palpation: soft, no hepatosplenomegaly and no guarding General: bladder normal to palpation External Female Exam: normal external appearance, normal appearance of the urethra and no lesions Urethra: normal appearance of the urethra and normal palpation Speculum Exam - Vagina: normal appearance of the vagina and normal vaginal discharge Speculum Exam - Cervix: normal appearance of the cervix, no cervical discharge (more content not included)... Normal [facility] ABD Limited w/ Elastographyo n 01-19-2024 ABD Limited w/ Elastography [facility] [address] [place] [address] ABD Limited w/ Elastography MR#: [id number] Acct: [id number] Name: MELISSA MARRUFO Rep #: [id number] : 1995 F 28 From: Quique euceda MD PCP: FE Davidson Status: REG CLI Study: ABD Limited w/ Elastography Date of Exam: 11/05 Exam# [id number] Ordering Dr: Henrik Spencer DO [id number] STUDY: ABDOMINAL ULTRASOUND - RIGHT UPPER QUADRANT; ELASTOGRAPHY REASON FOR VISIT: Female, 28 years old. Fatty infiltration of the liver. TECHNIQUE: Ultrasound evaluation of the right upper quadrant was performed with real-time and static valentin-scale imaging. Point quantification shear wave elastography was performed (Rain). TECHNICAL QUALITY: Adequate. COMPARISON: Comparison is made with prior study dated April 03, 2023. FINDINGS: Liver: The liver measures 15.8 cm. There is increased echogenicity consistent with fatty infiltration. The bile ducts are within normal limits. There is hepatic color flow. The direction of portal flow is hepatopetal. There is no demonstrated mass lesion. Median liver stiffness measured 7.2 kPa. Gallbladder: Normal distended gallbladder. The gallbladder wall measures 1.6 mm. There is a negative sonographic Guerrero''s sign. There is no pericholecystic fluid. There are no gallstones. Common Bile Duct (C.B.D.): The common bile duct measures 2 mm. Pancreas: There is normal echogenicity of the visualized pancreas. There is no demonstrated pancreatic mass or cyst. Right Kidney: Normal size of the right kidney. The right kidney measures 12.5 cm x 5.7 cm x 4.1 cm. Normal renal cortex. The right cortex measures 1 cm. There is no demonstrated renal mass or cyst. There is no right hydronephrosis. US/ABD Limited w/ Elastography IMPRESSION: 1. Liver stiffness measures 7.2 kPa compatible with F2-F3 (Mild to moderate liver fibrosis) Metavir score. Electronically Signed: Quique White MD at 9:11 EDT , CC: FE Lassiter; Dr. Henrik Spencer DO Sole Tacker: Signed Normal [facility] Bilirubin, Directon 01-17-20 24 Bilirubin.direct [Mass/Vol] 0.20 mg/dL Normal 0.00-0.30 [facility] Comment on above: Performed By: #### L 501.4700, [id number] #### [facility] [address] [place], [address] Comprehensive Metabolic Prof ilon 01-17-2024 Albumin [Mass/Vol] 4.4 g/dL Normal 3.2-5.0 [facility] Comment on above: Performed By: #### L [id number], [id number] #### [facility] [address] [place], [address] Albumin/Globulin [Mass ratio] 1.2 {ratio} Normal 0.9-2.4 [facility] Comment on above: Performed By: #### L [id number], [id number] #### [facility] [address] [place], [address] ALK P 63 U/L Normal 45-117 [facility] Comment on above: Performed By: #### L [id number], [id number] #### [facility] [address] [place], [address] ALT [Catalytic activity/Vol] 16 U/L Normal 13-56 [facility] Comment on above: Performed By: #### L [id number], [id number] #### [facility] [address] [place], [address] AST [Catalytic activity/Vol] 12 U/L Low 15-37 [facility] Comment on above: Performed By: #### L [id number], [id number] #### [facility] [address] [place], [address] Bilirubin [Mass/Vol] 0.60 mg/dL Normal 0.20-1.00 [facility] Comment on above: Result Comment: For patients on eltrombopag therapy, use of Dimension [place] TBIL is not recommended. Performed By: #### L [id number], [id number] #### [facility] [address] [place], [address] BUN/CRE 15.1 RATIO Normal 10-20 [facility] Comment on above: Performed By: #### L [id number], [id number] #### [facility] [address] [place], [address] CA,Total 9.8 mg/dL Normal 8.5-10.1 [facility] Comment on above: Performed By: #### L [id number], [id number] #### [facility] [address] [place], [address] Chloride [Moles/Vol] 107 mmol/L Normal 98-107 [facility] Comment on above: Performed By: #### L [id number], [id number] #### [facility] [address] [place], [address] CO2 [Moles/Vol] 25.0 mmol/L Normal 21.0-32.0 [facility] Comment on above: Performed By: #### L [id number], [id number] #### [facility] [address] [place], [address] Creatinine [Mass/Vol] 0.73 mg/dL Normal 0.55-1.02 [facility] Comment on above: Result Comment: The validity of the calculated GFR GFRAA in patients over 70 years has not been determined. Clinical correlation is essential. Performed By: #### L 501.4700, [id number] #### [facility] [address] [place], [address] EST GFR - AA 120 mL/min Normal >60 [facility] Comment on above: Result Comment: Afri can Montserratian GFR Calc Performed By: #### L [id number], [id number] #### [facility] [address] [place], [address] GAP 7 Normal 5-15 [facility] Comment on above: Performed By: #### L [id number], [id number] #### [facility] [address] [place], [address] GFR/1.73 sq M.predicted among non-blacks MDRD (S/P/Bld) [Vol rate/Area] 99 mL/min/{1.73_m2} Normal >60 [facility] Comment on above: Result Comment: Non- GFR Calc Performed By: #### L [id number], [id number] #### [facility] [address] [place], [address] Globulin (S) [Mass/Vol] 3.7 g/dL Normal 2.2-4.2 [facility] Comment on above: Performed By: #### L [id number], [id number] #### [facility] [address] [place], [address] Glucose [Mass/Vol] 93 mg/dL Normal 74-106 [facility] Comment on above: Performed By: #### L [id number], [id number] #### [facility] [address] [place], [address] Potassium [Moles/Vol] 3.7 mmol/L Normal 3.5-5.1 [facility] Comment on above: Performed By: #### L [id number], [id number] #### [facility] [address] [place], [address] Sodium [Moles/Vol] 139 mmol/L Normal 136-145 [facility] Comment on above: Performed By: #### L [id number], [id number] #### [facility] [address] [place], [address] T PROT 8.1 g/dL Normal 6.4-8.2 [facility] Comment on above: Performed By: #### L [id number], [id number] #### [facility] [address] [place], [address] Urea nitrogen [Mass/Vol] 11 mg/dL Normal 7-18 [facility] Comment on above: Performed By: #### L [id number], [id number] #### [facility] [address] [place], [address] INR in Blood by Coagulation assayOrdered By: Oriana Li on 03-29-2023 INR Coag (Bld) [Relative time] 1.1 {INR} [facility] Laboratory - CoagulationOrde red By: Oriana Li on 03-29-2023 PT Coag (PPP) [Time] 13.8 s 11.7-14.9 [facility] Absolute lymphocyte countOrd ered By: Oriana Li on 03-24-2023 Lymphocytes Auto (Unsp spec) [#/Vol] 2.33 10*3/uL 0.83-4.51 [facility] Basophil percentageOrdered B y: Oriana Li on 03-24-2023 Basophils/100 WBC (Bld) 0.9 % 0-1 [facility] Bilirubin [Mass/Vol] 0.70 mg/dL 0.20-1.00 [facility] Comment on above: For patients on eltr ombopag therapy, use of Dimension [place] TBIL is not recommended. Chloride [Moles/Vol] 108 mmol/L 98-107 [facility] Cholesterol [Mass/Vol] 159 mg/dL <200 [facility] Comment on above: <200 mg/dL Desirable 200-240 mg/dL Borderline >240 mg/dL High Risk Eosinophils/100 WBC (Bld) 0.4 % 0-5 [facility] Glucose [Mass/Vol] 113 mg/dL 74-106 [facility] Comment on above: Fasting Glucose resu lt from 100 to 125 mg/dL suggests IMPAIRED HOMEOSTASIS per A.D.A. criteria. Neutrophils (Bld) [#/Vol] 3.6 10*3/uL 2.0-7.7 [facility] Neutrophils/100 WBC (Bld) 54.4 % 47-70 [facility] Potassium [Moles/Vol] 3.9 mmol/L 3.5-5.1 [facility] Protein [Mass/Vol] 7.2 g/dL 6.4-8.2 [facility] Sodium [Moles/Vol] 141 mmol/L 136-145 [facility] Triglyceride [Mass/Vol] 105 mg/dL <199 [facility] Comment on above: The drugs N-Acetylcy steine and Metamizole may falsely depress this assay.Serum Triglycerides Reference Interval Normal <150 mg/dL Borderline high 150 - 199 mg/dL High 200 - 499 mg/dL Very High > or = 500 mg/dL WBC (Bld) [#/Vol] 6.7 10*3/uL 4.4-11.0 [facility] Blood erythrocytes count (nu mber/volume)Ordered By: Oriana Li on 03-24-2023 RBC (Bld) [#/Vol] 4.43 10*6/uL 4.2-5.4 [facility] Blood hemoglobin measurement (mass/volume)Ordered By: Oriana Li on 03-24-2023 Hemoglobin (Bld) [Mass/Vol] 13.4 g/dL 12.0-15.0 [facility] Blood lymphocytes/100 leukoc ytesOrdered By: Oriana Li on 03-24-2023 Lymphocytes/100 WBC (Bld) 34.9 % 19-41 [facility] Blood monocytes/100 leukocyt esOrdered By: Oriana Li on 03-24-2023 Monocytes/100 WBC (Bld) 9.3 % 0-10 [facility] Blood platelet mean volumeOr dered By: Oriana Li on 03-24-2023 Platelet mean volume (Bld) [Entitic vol] 11.6 fL 6.2-12.0 [facility] Determination of erythrocyte mean corpuscular volume (MCV)Ordered By: Oriana Li on 03-24-2023 MCV (RBC) [Entitic vol] 93.2 fL 81-99 [facility] Hematocrit Auto (Bld) [Volum e fraction]Ordered By: Oriana Li on 03-24-2023 Hematocrit (Bld) [Volume fraction] 41.3 % 37-47 [facility] Laboratory - Chemistry and C hemistry - challengeOrdered By: Oriana Li on 03-24-2023 ALP [Catalytic activity/Vol] 75 U/L 45-117 [facility] ALT [Catalytic activity/Vol] 194 U/L 13-56 [facility] CO2 [Moles/Vol] 22.0 mmol/L 21.0-32.0 [facility] Globulin (S) [Mass/Vol] 4.0 g/dL 2.2-4.2 [facility] Urea nitrogen/Creatinine [Mass ratio] 11.0 mg/mg 10-20 [facility] Laboratory - Hematology and Cell countsOrdered By: Oriana Li on 03-24-2023 Erythrocyte distribution width (RBC) [Entitic vol] 43.4 fL 35.1-43.9 [facility] Erythrocyte distribution width (RBC) [Ratio] 12.7 % 11.6-14.6 [facility] Immature granulocytes/100 WBC (Bld) 0.100 % 0.0-0.9 [facility] Comment on above: IG% - Immature Granu locytes (promyelocytes, myelocytes and metamyelocytes) > 1% indicates that a LEFT SHIFT is Present. MCH (RBC) [Entitic mass] 30.2 pg 27.0-32.0 [facility] Nucleated RBC/100 WBC (Bld) [Ratio] 0 % 0-5 [facility] MCHC Auto (RBC) [Mass/Vol]Or dered By: Oriana Li on 03-24-2023 MCHC (RBC) [Mass/Vol] 32.4 g/dL 32-36 [facility] No Panel InformationOrdered By: Oriana Li on 03-24-2023 Estimated GFR (MDRD) Amer 121 mL/min >60 [facility] Comment on above: GFR Calc Estimated GFR (MDRD) Non-Af Amer 100 mL/min >60 [facility] Comment on above: Non- GFR Calc Thyroid Stimulating Hormone (TSH) 2.08 uIU/mL 0.358-3.74 [facility] Platelets bldOrdered By: Faisal Li on 03-24-2023 Platelets (Bld) [#/Vol] 195 10*3/uL 150-450 [facility] Serum or plasma albumin cherise urement (mass/volume)Ordered By: Oriana Li on 03-24-2023 Albumin [Mass/Vol] 3.2 g/dL 3.2-5.0 [facility] Serum or plasma albumin/glob ulin mass ratioOrdered By: Oriana Li on 03-24-2023 Albumin/Globulin [Mass ratio] 0.8 {ratio} 0.9-2.4 [facility] Serum or plasma calcitriol m easurement (mass/volume)Ordered By: Oriana Li on 03-24-2023 1,25-dihydroxyvitamin D3 [Mass/Vol] 69.7 pg/mL 24.8-81.5 [facility] Comment on above: Performed at: [facility] [address] [id number] Director: Julianna Garvin MD, Phone: [phone] Serum or plasma calcium cherise urement (mass/volume)Ordered By: Oriana Li on 03-24-2023 Calcium [Mass/Vol] 8.8 mg/dL 8.5-10.1 [facility] Serum or plasma cholesterol in HDL measurement (mass/volume)Ordered By: Oriana Li on 03-24-2023 Cholesterol in HDL [Mass/Vol] 61 mg/dL >40 [facility] Comment on above: The drugs N-Acetylcy steine and Metamizole may falsely depress this assay. Reference Range HDL <40 mg/dL Low HDL Cholesterol HDL >or= 60 mg/dL High HDL Cholesterol Serum or plasma cholesterol in VLDL measurement (mass/volume)Ordered By: Oriana Li on 03-24-2023 Cholesterol in VLDL [Mass/Vol] 21 mg/dL 5-40 [facility] Serum or plasma creatinine m easurement (mass/volume)Ordered By: Oriana Li on 03-24-2023 Creatinine [Mass/Vol] 0.73 mg/dL 0.55-1.02 [facility] Comment on above: The validity of the calculated GFR & GFRAA in patients over 70 years has not been determined. Clinical correlation is essential. Serum or plasma low density lipoprotein (LDL) cholesterol measurement (mass/volume)Ordered By: Oriana Li on 03-24-2023 Cholesterol in LDL [Mass/Vol] 77 mg/dL 0-130 [facility] Serum or plasma urea nitroge n measurement (mass/volume)Ordered By: Oriana Li on 03-24-2023 Urea nitrogen [Mass/Vol] 8 mg/dL 7-18 [facility] Thin prep Papanicolaou smear with manual screeningOrdered By: Oriana Li on 03-24-2023 Thin prep Papanicolaou smear with manual screening 212 U/L 15-37 [facility] Thin prep Papanicolaou smear with manual screening 11 5-15 [facility] Whole blood hemoglobin A1c/t otal hemoglobin ratio (mass fraction)Ordered By: Oriana Li on 03-24-2023 HbA1c (Bld) [Mass fraction] 5.1 % 3.8-5.6 [facility] Comment on above: Normal < 5.7 % Predi abetic 5.7 - 6.4 % Diabetic >or= 6.5 % Please note range changes. Basophil percentageOrdered B y: Colt Lemus on 10-07-2022 Potassium [Moles/Vol] 3.9 mmol/L 3.5-5.1 [facility] Cervical or vagninal specime n microscopic examination by cytology stain (reported ason 03-17-2022 Cytology report Cyto stain Doc (Cvx/Vag) Comment . [facility] Work Phone: Comment on above: The Pap smear is a s creening test designed to aid in thedetection of premalignant and malignant conditions of theuterine cervix. It is not a diagnostic procedure andshould not be used as the sole means of detecting cervicalcancer. Both false-positive and false-negative reports dooccur. Laboratory - Cytologyon Nurse Obgyn Cyto stain Nom (Cvx/Vag) [ID] Comment . [facility] Work Phone: Comment on above: Renetta Malcolm, Roading Engineer (ASCP) Laboratory - Miscellaneous t estson 03-17-2022 Service comment (Unsp spec) [Interp] Comment . [facility] Work Phone: Comment on above: This liquid based Th inPrep(R) pap test was screened withthe use of an image guided system. Service comment (Unsp spec) [Interp] . . [facility] Work Phone: No Panel Informationon 03-17 Human Papillomavirus Screen Comment . [facility] Work Phone: Comment on above: The HPV DNA reflex c ze were not met with this specimenresult therefore, no HPV testing was performed.Performed at: [address] [id number] Director: Yanely Marcus MD, Phone: [phone] Pathology report final diagnosis Narrative Comment . [facility] Work Phone: Comment on above: NEGATIVE FOR INTRAEP ITHELIAL LESION OR MALIGNANCY. Laboratory - Microbiology an d Antimicrobial susceptibilityon 02-15-2022 SARS-CoV-2 (COVID-19) RNA AMALIA+probe Ql (Unsp spec) Not detected [facility] Work Phone: No Panel Informationon 02-15 Influenza Types A,B Rapid (Clinic) Not detected [facility] Work Phone: Basophil percentageon 2021 Potassium [Moles/Vol] 4.3 mmol/L 3.5-5.1 [facility] Work Phone: CNOVon 09-27-2017 CNOV Office Visit (PEMDNA) MELISSA MARRUFO ([id number]) 1995 FDate Time Provider Department09/27/17 8:00 AM MADALYN HELM During your visit today, we recorded the following information about you: Temperature Pulse Respiration Blood pressure 98.9 degrees 72/minute 16/minute 120/86 Weight Last Period 84.5 kg 09/23/17Dazach Helm DO 09/27/2017 9:35 AM SignedPediatric Integrative MedicinePatient Name: Melissa MarrufoMRN: [id number] Service: Pediatric Integrative MedicineRequesting Provider: Karl Ramirez LMTOpinion/advice regarding: trigeminal neuralgiaCopy of note will be sent to referring provider by US mailHPI: This is a 22 year old female who presents with cheek pain since . Has been taking Lyrica and ibuprofen for 2 years. Pain is achy, constant.Had nerve block with no improvement. Pain was 6-7/ 10, now 3-4 /10. Lyrica Marquis alonzo stopped working.Fell in 2012, fell down 5 steps, scraped right side of face, had black eye,didn't develop facial pain until 2016. Pain starts over right side of nose andrefers back towards ear.Not burning in nature. Does get occasional headache. Had MRI and CT scan withnormal results.PAST MEDICAL HISTORY:PAST MEDICAL HISTORYDiagnosis Date- Allergic rhinitisBIRTH HISTORY: No pediatric history on file.PAST SURGICAL HISTORY:PAST SURGICAL HISTORYProcedure Laterality Date- ORAL SURGERY PROCEDURE Elcho TeethFAMILY HISTORY:FAMILY HISTORYProblem Relation Age of Onset- None Mother- None Father- Hypertension Father- Hypertension Maternal Grandfather- Heart Maternal Grandfather Pacemaker- Diabetes Paternal Grandmother- Coronary Artery Disease Paternal Grandmother Triple By-pass- Fibromyalgia [OTHER] Paternal Grandmother- Blood Clots [OTHER] Paternal GrandfatherSOCIAL HISTORY:Social HistorySubstance Use Topics- Smoking status: Never Smoker- Smokeless tobacco: Never Used- Alcohol use NoMEDICATIONS:Prior to Admission Medications:pregabalin (LYRICA) 150 mg capsule Take 150 mg by mouth three times daily.FLUTICASONE PROPIONATE (FLONASE NASAL) Use in the nose.loratadine 10 mg tablet Take 1 tablet by mouth once daily.selenium sulfide 2.5 % TOPICAL Sham 2x/wk face, chest, back--lather, wait 5minutes, rinse offSulfacetamide Sodium-Sulfur 10-5 % (w/v) TOPICAL Lotn bid face--am/supperAdapalene (DIFFERIN) 0.1 % TOPICAL Gel qhs faceALDARA 5 % TOPICAL PACKET qod (3x/wk) to 1/2 past edge of each site, leftplantar--discuss possible multiple applic'n from packetSINGULAIR 10 MG TAB as necessaryNo current hospital medications on file.ALLERGIES: Cymbalta [Duloxetine]; Tegretol [Carbamazepine]COMPLETE REVIEW OF SYSTEMS:Review of Systems: GENERAL: Normal sleep, appetite and activity.No fevers or irritability.HEENT: Negative for headaches, No problems with hearing or vision, no nosebleeds or other nasal problemsNECK: Negative for stiffness, lumps or significant neck swellingRESPIRATORY: Negative for cough, wheezing or respiratory distressCARDIOVASCULAR: Negative for chest pain, syncope, lightheadness or heart racingGI: No nausea, vomiting, or diarrheaGU: No history of dysuria, frequency or incontinenceGYN: Negative for abnormal vaginal bleeding, abnormal vaginal dischargeMUSCULOSKELETAL : Negative for joint pain or swelling, back pain or muscle painSKIN: Negative for lesions, rash, and itchingPSYCH: Negative for sleep disturbance, mood disorder and recent psychosocialstressors.HE MATOLOGY/LYMPHOLOGY: Negative for prolonged bleeding, bruising easily orswollen nodesENDOCRINE: Negative for significant weight loss or weight gain.NEURO: No weakness, seizures or change in mental status.The remainder of the review of systems is negative.PHYSICAL EXAM: BP 120/86 Pulse 72 Temp 37.2 ?C (98.9 ?F) (TemporalArtery) Resp 16 Wt 84.5 kg (186 lb 4.8 oz) LMP 09/23/2017 (Exact Date) BMI 34.07 kg/m? Physical Exam:Alert, active, in no distressHead: Normocephalic and atraumatic. Tenderness to palpation from infraorbitalarea from upper nose to preauricular area.HEENT: Pupils equal and reactive to light, extraocular muscles intact.Tympanic membranes pink and moist with good landmarks.Pharynx pink and moist without exudates or erosionsNeck: no adenopathyLungs: Clear to auscultation with good air exchange. No grunting flaring or retractionsHeart: Regular rate and rhythm with normal s1 S2 femoral pulses presentAbdomen: Soft, nontender with good bowel sounds in all 4 quadrants.no hepatosplenomegalyExtrem ities: well perfused. 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 Please page if any questions or concernsSIGNATURE: Madalyn Helm D.O.Pediatric Pediatric Integrative MedicinePAGER: [phone] of SERVICE: September 27, 2017TIME of SERVICE: 8:00 amReferring Provider: AIDAN DEAN [[id number]]Allergies As of Date: 09/27/2017 Noted Allergy ReactionCYMBALTA (DULOXETINE) 09/27/2017 8 - GI UpsetTEGRETOL (CARBAMAZEPINE) 09/27/2017 2 - RashDate Reviewed: 09/27/2017Reviewed by: Madalyn Helm - Fully AssessedReason for Visit: microcurrent [Other]Primary Visit Diagnosis:Trigeminal neuralgia of right side of face [G50.0]Prescriptions as of 09/27/2017 Sig: PREGABALIN 150 MG CAPSULE Take 150 mg by mouth three ti* * FLONASE NASAL Use in the nose. LORATADINE 10 MG TABLET Take 1 tablet by mouth once d* * SELENIUM SULFIDE 2.5 % SHAMPOO 2x/wk face, chest, back--lath* * SULFACETAMIDE SODIUM-SULFUR 1* bid face--am/supper * DIFFERIN 0.1 % TOPICAL GEL qhs face * ALDARA 5 % TOPICAL CREAM PACK* qod (3x/wk) to 1/2 past edge* * SINGULAIR 10 MG TABLET as necessaryProblem List As Of Date: 09/27/2017(None)[facility] Number: [id number] Status:Closed by MADALYN HELM DO on 09/27/17 [facility] PROGRESSon 09-27-2017 PROGRESS HNO ID: [id number]: Madalyn GentileeService: (none)Author Type: PhysicianType: Progress NotesFiled: 09/27/2017 9:35 AMNote Text:Pediatric Integrative MedicinePatient Name: Melissa MarrufoMRN: [id number] Service: Pediatric Integrative MedicineRequesting Provider: Karl Ramirez LMTOpininolan/advice regarding: trigeminal neuralgiaCopy of note will be sent to referring provider by US mailHPI: This is a 22 year old female who presents with cheek pain since . Has been taking Lyrica and ibuprofen for 2 years. Pain is achy,constant.Had nerve block with no improvement. Pain was 6-7/ 10, now 3-4 /10. Lyricais helping , Advil stopped working.Fell in 2012, fell down 5 steps, scraped right side of face, had blackeye, didn't develop facial pain until 2015. Pain starts over right side ofnose and refers back towards ear.Not burning in nature. Does get occasional headache. Had MRI and CT scanwith normal results.PAST MEDICAL HISTORY:PAST MEDICAL HISTORYDiagnosis Date- Allergic rhinitisBIRTH HISTORY: No pediatric history on file.PAST SURGICAL HISTORY:PAST SURGICAL HISTORYProcedure Laterality Date- ORAL SURGERY PROCEDURE Elcho TeethFAMILY HISTORY:FAMILY HISTORYProblem Relation Age of Onset- None Mother- None Father- Hypertension Father- Hypertension Maternal Grandfather- Heart Maternal Grandfather Pacemaker- Diabetes Paternal Grandmother- Coronary Artery Disease Paternal Grandmother Triple By-pass- Fibromyalgia [OTHER] Paternal Grandmother- Blood Clots [OTHER] Paternal GrandfatherSOCIAL HISTORY:Social HistorySubstance Use Topics- Smoking status: Never Smoker- Smokeless tobacco: Never Used- Alcohol use NoMEDICATIONS:Prior to Admission Medications:pregabalin (LYRICA) 150 mg capsule Take 150 mg by mouth three times daily.FLUTICASONE PROPIONATE (FLONASE NASAL) Use in the nose.loratadine 10 mg tablet Take 1 tablet by mouth once daily.selenium sulfide 2.5 % TOPICAL Sham 2x/wk face, chest, back--lather, wait5 minutes, rinse offSulfacetamide Sodium-Sulfur 10-5 % (w/v) TOPICAL Lotn bid face--am/supperAdapalene (DIFFERIN) 0.1 % TOPICAL Gel qhs faceALDARA 5 % TOPICAL PACKET qod (3x/wk) to 1/2 past edge of each site, leftplantar--discuss possible multiple applic'n from packetSINGULAIR 10 MG TAB as necessaryNo current hospital medications on file.ALLERGIES: Cymbalta [Duloxetine]; Tegretol [Carbamazepine]COMPLETE REVIEW OF SYSTEMS:Review of Systems: GENERAL: Normal sleep, appetite and activity.No fevers or irritability.HEENT: Negative for headaches, No problems with hearing or vision, no nosebleeds or other nasal problemsNECK: Negative for stiffness, lumps or significant neck swellingRESPIRATORY: Negative for cough, wheezing or respiratory distressCARDIOVASCULAR: Negative for chest pain, syncope, lightheadness or heartracingGI: No nausea, vomiting, or diarrheaGU: No history of dysuria, frequency or incontinenceGYN: Negative for abnormal vaginal bleeding, abnormal vaginal dischargeMUSCULOSKELETAL : Negative for joint pain or swelling, back pain or musclepainSKIN: Negative for lesions, rash, and itchingPSYCH: Negative for sleep disturbance, mood disorder and recentpsychosocial stressors.HEMATOLOGY/LYM PHOLOGY: Negative for prolonged bleeding, bruising easily orswollen nodesENDOCRINE: Negative for significant weight loss or weight gain.NEURO: No weakness, seizures or change in mental status.The remainder of the review of systems is negative.PHYSICAL EXAM: BP 120/86 Pulse 72 Temp 37.2 ?C (98.9 ?F) (TemporalArtery) Resp 16 Wt 84.5 kg (186 lb 4.8 oz) LMP 09/23/2017 (ExactDate) BMI 34.07 kg/m? Physical Exam:Alert, active, in no distressHead: Normocephalic and atraumatic. Tenderness to palpation frominfraorbital area from upper nose to preauricular area.HEENT: Pupils equal and reactive to light, extraocular muscles intact.Tympanic membranes pink and moist with good landmarks.Pharynx pink and moist without exudates or erosionsNeck: no adenopathyLungs: Clear to auscultation with good air exchange. No grunting flaring or retractionsHeart: Regular rate and rhythm with normal s1 S2 femoral pulses presentAbdomen: Soft, nontender with good bowel sounds in all 4 quadrants.no hepatosplenomegalyExtrem ities: well perfused. Capillary refill less than 3 secondsCranial manipulation performed including CV4, parietal lift, vault hold,balancing of RTMFrequency specific microcurrent from ear to nose at 100 microamperes forNP, neuroma, 58/01 40,13/396,783Pain decreased from 4/10 to 3/10ASSESSMENT AND PLAN:22 year old female with Trigeminal NeuralgiaContinue current medications.Will discuss with Physiatry about further recommendationsThanks for this consultation. Please page if any questions or concernsSIGNATURE: Madalyn Helm D.O.Pediatric Pediatric Integrative MedicinePAGER: [phone] of SERVICE: September 27, 2017TIME of SERVICE: 8:00 am [facility] Vital Signs Date Time Vital Sign Value Performing Clinician Facility 01-25-2024 08:52-0400 Body height 160 cm Henrik Spencer [employer] Work Phone: [facility] 01-25-2024 08:52-0400 Body mass index (BMI) [Ratio] 31.07 kg/m2 Henrik Spencer [employer] Work Phone: [facility] 01-25-2024 08:52-0400 Body weight 79.56 kg Henrik Spencer [employer] Work Phone: [facility] 01-25-2024 08:52-0400 Diastolic blood pressure 77 mm[Hg] Henrik Spencer [employer] Work Phone: [facility] 01-25-2024 08:52-0400 Heart rate 60 /min Henrik Spencer [employer] Work Phone: [facility] 01-25-2024 08:52-0400 SaO2% (BldA) [Mass fraction] 98 % Henrik Spencer [employer] Work Phone: [facility] 01-25-2024 08:52-0400 Systolic blood pressure 116 mm[Hg] Henrik Thomae DO Work Phone: [facility] 07-20-2023 15:48-0500 Body mass index (BMI) [Ratio] 35.43 kg/m2 Henrik Thomae DO Work Phone: [facility] 07-20-2023 15:48-0500 Body weight 90.72 kg Henrik Thomae DO Work Phone: [facility] 06-19-2023 09:30-0500 Body height 160 cm Henrik Thomae DO Work Phone: [phone] [address] 06-19-2023 09:30-0500 Body mass index (BMI) [Ratio] 35.43 kg/m2 Henrik Thomae DO Work Phone: [phone] [place] [address] 06-19-2023 09:30-0500 Body weight 90.72 kg Henrik Thomae DO Work Phone: [facility] 03-23-2023 11:28-0500 Body height 160.[address] Harry Francis [facility] 03-23-2023 11:27-0500 Body mass index (BMI) [Ratio] 36.7 kg/m2 Dr. Mcdonald [facility] 03-23-2023 11:27-0500 Body weight [address] Harry Francis [facility] 03-23-2023 11:27-0500 Diastolic blood pressure 84 mm[Hg] Dr. Harry Francis [facility] 03-23-2023 11:27-0500 Systolic blood pressure 119 mm[Hg] Dr. Harry Francis [facility] 03-17-2022 11:36-0400 Body height 160.[address] Harry Francis Work Phone: [facility] Work Phone: 03-17-2022 11:36-0400 Body mass index (BMI) [Ratio] 34 kg/m2 Dr. Harry Francis Work Phone: [facility] Work Phone: 03-17-2022 11:36-0400 Body weight 87.[address] Harry Francis Work Phone: [facility] Work Phone: 03-17-2022 11:36-0400 Diastolic blood pressure 87 mm[Hg] Dr. Harry Francis Work Phone: [facility] Work Phone: 03-17-2022 11:36-0400 Systolic blood pressure 137 mm[Hg] Dr. Harry Francis Work Phone: [facility] Work Phone: 02-15-2022 09:35-0400 Body temperature 98 [degF] Dr. Harry Francis Work Phone: [facility] Work Phone: 02-15-2022 09:35-0400 Diastolic blood pressure 86 mm[Hg] Dr. Harry Francis Work Phone: [facility] Work Phone: 02-15-2022 09:35-0400 Heart rate 89 /min Dr. Harry Francis Work Phone: [facility] Work Phone: 02-15-2022 09:35-0400 Respiratory rate 14 /min Dr. Harry Francis Work Phone: [facility] Work Phone: 02-15-2022 09:35-0400 SaO2% (BldA) [Mass fraction] 98 % Dr. Harry Francis Work Phone: [facility] Work Phone: 02-15-2022 09:35-0400 Systolic blood pressure 124 mm[Hg] Dr. Harry Francis Work Phone: [facility] Work Phone: Encounters Encounter Date Encounter Type Care Provider Facility Start: 11-29-2024 [facility] Facility:[facility] Start: 11-18-2024 ambulatory [facility] Center Facility:[facility] Start: 04-08-2024 Encounter for gynecological examination (general) (routine) without abnormal findings Oriana Li [facility] Start: 04-08-2024 End: 04-08-2024 ambulatory [facility] Facility:[facility] [place] [place] Start: 01-25-2024 End: 01-25-2024 Office outpatient visit 15 minutes Henrik R Thomae DO Work Phone: [facility] Comment on above: Nonalcoholic fatty l iver disease (Primary Dx) Start: 01-25-2024 End: 01-25-2024 ambulatory [facility] Start: 01-19-2024 End: 01-19-2024 ambulatory [facility] Facility:[facility] Start: 01-17-2024 End: 01-17-2024 ambulatory [facility] Facility:[facility] Start: 07-20-2023 End: 07-20-2023 Office outpatient visit 25 minutes Henrik R Thomae DO Work Phone: [facility] Comment on above: Nonalcoholic fatty l iver disease (Primary Dx) Start: 07-20-2023 End: 07-20-2023 ambulatory [facility] Start: 06-19-2023 End: 06-19-2023 Office outpatient new 45 minutes Henrik R Thomae DO Work Phone: [facility] Comment on above: Elevated liver enzym es (Primary Dx) Start: 06-19-2023 End: 06-19-2023 ambulatory [facility] Start: 04-03-2023 End: 04-03-[address] Harry Francis [facility] Work Phone: Start: 04-03-2023 End: 04-03-[address] Harry Francis [facility], [facility] Work Phone: Start: 03-29-2023 End: 03-29-[address] Harry Francis [facility] Work Phone: Start: 03-29-2023 End: 03-29-[address] Harry Francis [facility]Labor[facility] Work Phone: Start: 03-24-2023 End: 03-24-[address] Harry Francis [facility] Work Phone: Start: 03-24-2023 End: 03-24-[address] Harry Francis [facility] Work Phone: Start: 03-23-2023 End: 03-23-[address] Harry Francis [facility] Work Phone: Start: 10-07-2022 End: 10-07-2022 ambulatory [facility] Work Phone: Start: 10-07-2022 End: 10-07-2022 [facility] Start: 03-17-2022 End: 03-17-[address] Harry Francis Work Phone: [facility] Work Phone: Start: 03-17-2022 End: 03-17-[address] Harry Francis [facility] Start: 03-17-[address] Lázaro Francis Work Phone: [facility] Start: 03-17-2022 End: 03-17-[address] Harry Francis Work Phone: [facility] Start: 03-17-2022 End: 03-17-[address] Harry Francis Work Phone: [facility] Start: 02-15-2022 End: 02-15-[address] Harry Francis Work Phone: [facility] Start: 07-18-[address] Harry Francis Work Phone: [facility] Start: 10-02-2021 End: 10-02-2021 Patient encounter procedure [facility] Start: 07-19-2021 End: 07-19-2021 Discharged Recurring [facility] Start: 09-27-2017 End: 09-29-2017 Ambulatory MADALYN HELM [facility] Procedures Date Procedure Procedure Detail Performing Clinician Start: 07-20-2023 Follow-up visit Follow-up HENRIK SPENCER Start: 04-03-2023 Ultrasound elastogra phy of liver Dr. Harry Francis Start: 12-26-2018 Microscopic observat ion [Identifier] in Cervix by Cyto stain Henrik Spencer DO Work Phone: Plan of Treatment Date Care Activity Detail Author Start: 2043 Zoster Vaccines (1 of 2) Zoste r Vaccines (1 of 2) [facility] Start: 01-23-2025 End: 01-23-2025 Patient encounter procedure 01/23/2025 9:15 AM EDT Office Visit [facility] [address] [place] [phone] Henrik Spencer DO [address] [facility], [place] [address] [facility] Start: 01-25-2024 End: 01-25-2024 Patient encounter procedure 01/25/2024 9:00 AM EDT Office Visit [facility] [address] [place] [phone] Henrik Spencer DO [address] [facility], [place] [address] [facility] Start: 01-20-2024 End: 07-19-2024 Liver Elastography (Fibroscan) Liver Elastography (Fibroscan) GI Routine Nonalcoholic fatty liver disease Expected: 01/20/2024, Expires: 07/19/2024 [facility] Work Phone: Comment on above: Expected: 01/20/2024 , Expires: 07/19/2024 Start: 01-14-2024 COVID-19 Vaccine () COVID-19 Vaccine () [facility] Start: 01-14-2024 Influenza vaccination Influenza Vacc ine (#1) [facility] Start: 07-20-2023 End: 07-20-2023 Patient encounter procedure 07/20/2023 3:45 PM EST Office Visit [facility] [address] [place] [phone] Henrik Spencer DO [address] [facility], [address] [place] [address] [facility] Start: 07-20-2023 End: 07-19-2024 Comprehensive metabolic 2000 panel - Serum or Plasma Comprehensive Metabolic Panel Lab Routine Nonalcoholic fatty liver disease Expected: 07/20/2023 (Approximate), Expires: 07/19/2024 [facility] Service Area Work Phone: Comment on above: Expected: 07/20/2023 (Approximate), Expires: 07/19/2024 Start: 06-19-2023 End: 06-19-2024 Alpha-1 Antitrypsin Phenotype Alpha-1 Antitrypsin Phenotype Lab Routine Elevated liver enzymes Expected: 06/19/2023 (Approximate), Expires: 06/19/2024 [facility] Work Phone: Comment on above: Expected: 06/19/2023 (Approximate), Expires: 06/19/2024 Start: 06-19-2023 End: 06-19-2024 Ferritin [Mass/volume] in Serum or Plasma Ferritin Lab Routine Elevated liver enzymes Expected: 06/19/2023 (Approximate), Expires: 06/19/2024 [facility] Work Phone: Comment on above: Expected: 06/19/2023 (Approximate), Expires: 06/19/2024 Start: 06-19-2023 End: 06-19-2024 Iron and Iron binding capacity panel - Serum or Plasma Iron and TIBC Lab Routine Elevated liver enzymes Expected: 06/19/2023 (Approximate), Expires: 06/19/2024 [facility] Work Phone: Comment on above: Expected: 06/19/2023 (Approximate), Expires: 06/19/2024 Start: 06-19-2023 End: 06-19-2024 Mitochondria Ab [Presence] in Serum by Immunofluorescence Anti-Mitochondrial Antibody Lab Routine Elevated liver enzymes Expected: 06/19/2023 (Approximate), Expires: 06/19/2024 [facility] Work Phone: Comment on above: Expected: 06/19/2023 (Approximate), Expires: 06/19/2024 Start: 06-19-2023 End: 06-19-2024 Nuclear Ab [Presence] in Serum by Hep2 substrate MONSE with Reflex to BEATRIZ Lab Routine Elevated liver enzymes Expected: 06/19/2023 (Approximate), Expires: 06/19/2024 [facility] Work Phone: Comment on above: Expected: 06/19/2023 (Approximate), Expires: 06/19/2024 Start: 06-19-2023 End: 06-19-2024 Smooth muscle Ab [Presence] in Serum by Immunofluorescence Anti-Smooth Muscle Antibody Lab Routine Elevated liver enzymes Expected: 06/19/2023 (Approximate), Expires: 06/19/2024 [facility] Service Area Work Phone: Comment on above: Expected: 06/19/2023 (Approximate), Expires: 06/19/2024 Start: 01-13-2023 COVID-19 Vaccine () COVID-19 Vaccine ( season) [facility] Start: 01-13-2023 Influenza vaccination Influenza Vacc ine (#1) [facility] Start: 03-17-2022 Liquid based cervica l cytology screening [facility] Work Phone: Start: 12-26-2021 Screening for malign ant neoplasm of cervix [facility] Start: 2014 Screening for malign ant neoplasm of cervix HPV/Cotest [facility] Start: 2012 Hepatitis A Vaccines (1 of 2 - Risk 2-dose series) Hepatitis A Vaccines (1 of 2 - Risk 2-dose series) [facility] Start: 2012 Hepatitis B Vaccines (1 of 3 - 19+ 3-dose series) Hepatitis B Vaccines (1 of 3 - 19+ 3-dose series) [facility] Start: 2011 Hepatitis C screening Hepatitis C Sc reening [facility] Start: 2006 Varicella vaccination Varicell a Vaccines (1 of 2 - 13+ 2-dose series) [facility] Start: 2004 DTaP/Tdap/Td Vaccine s (6 - Tdap) DTaP/Tdap/Td Vaccines (6 - Tdap) [facility] Start: 09-29-1998 Varicella vaccination Varicell a Vaccines (1 of 2 - 2-dose childhood series) [facility] Start: 1993 Hepatitis B Vaccines (1 of 3 - 3-dose series) Hepatitis B Vaccines (1 of 3 - 3-dose series) [facility] Start: 1993 HIV screening HIV Screening [facility] Start: 1993 Lipid panel Lipid Panel [facility] Start: 1993 Yearly Adult Physical Yearly Adult P hysical [facility] Ceruloplasmin [Mass/ volume] in Serum or Plasma [facility] Copper [Moles/volume ] in Serum or Plasma [facility] Hepatitis A virus Ig M Ab [Presence] in Serum [facility] Hepatitis B core ant ibody measurement, IgM type [facility] Hepatitis B surface antigen measurement [facility] Hepatitis C antibody measurement [facility] Path report.final Dx Spec [facility] Work Phone: Payers Date Payer Category Payer Self-pay [id number] 2023 Unknown [id number] 2022 Unknown [id number] 2015 Unknown [id number] 1993 Unknown [id number] 2.16.8 [id number] 1993 Unknown [id number] 2.16.8 [id number] 1993 Unknown [id number] 2.16.8 [id number] Unknown [id number] 2.16.8 [id number] Unknown [id number] 2.16.8 [id number] Unknown [id number] 2.16.8 [id number] Unknown [id number] 2.16.8 [id number] Unknown [id number] 2.16.8 [id number] Social History Date Type Detail Facility Start: 02-27-2020 End: 02-27-2020 Tobacco smoking status NHIS Unknown if ever smoked [facility] Start: 1995 Sex Assigned At Female [facility] Start: 06-19-2023 Tobacco smoking stat us NHIS Never smoked tobacco [facility] Work Phone: Start: 06-19-2023 Tobacco use and exposure Smokeless tobacco non-user [facility] Work Phone: Start: 06-19-2023 End: 01-25-2024 Alcohol intake Lifetime non-drinker (finding) [facility] Work Phone: Start: 1995 Sex Assigned At Not on file [facility] Work Phone: Start: 06-19-2023 End: 01-25-2024 Gender identity Not on file [facility] Work Phone: Start: 06-09-2023 End: 01-25-2024 Exposure to SARS-CoV-2 (event) Not sure [facility] Start: 06-19-2023 End: 01-25-2024 History of Social function [facility] Work Phone: Goals Date Patient Goal Desired Activity /State History of Present illness Narrative 01-25-2024 Henrik Spencer, DO - 01/25/2024 9:00 AM EDT Note Date & Type Note Facility 01-25-2024 History of Present illness Narrative Subjective Patient ID: Melissa Marrufo is a 28 y.o. female who presents for Follow-up (Patient in office for 6 month follow up; ultrasound results in mailbox this morning for review. No concerns at this time. ). 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 Repeat liver ultrasound with FibroScan shows mild to moderate fibrosis with a score of 7.2 kPa. She is lost 30 pounds since last visit her transaminases normalized. Had a long conversation with she and her mom regarding treatment her liver is not quite to a degree of fibrosis to demand therapy. Recommend she continue aggressive diet and low-salt sugar diet follow-up in 1 year for repeat scan. Review of Systems Constitutional: Negative. HENT: Negative. Eyes: Negative. Respiratory: Negative. Cardiovascular: Negative. Endocrine: Negative. Genitourinary: Negative. Neurological: Negative. Hematological: Negative. Objective Physical Exam Vitals and nursing note reviewed. Constitutional: Appearance: Normal appearance. HENT: Head: Normocephalic. Mouth/Throat: Mouth: Mucous membranes are moist. Pharynx: Oropharynx is clear. Eyes: Conjunctiva/sclera: Conjunctivae normal. Pupils: Pupils are equal, round, and reactive to light. Cardiovascular: Rate and Rhythm: Normal rate and regular rhythm. Heart sounds: Normal heart sounds. Pulmonary: Effort: [...] Diagnoses and all orders for this visit: Nonalcoholic fatty liver disease Discussed the stability of her ultrasound. Applauded her for her continued weight loss. At this time would continue to check liver ultrasound annually. She is not qualified for medical treatment at this time. Henrik Spencer DO 01/25/24 1:18 PM documented in this encounter [facility] Work Phone: History of Present illness Narrative 07-20-2023 Henrik Spencer DO - 07/20/2023 3:45 PM EST Note Date & Type Note Facility 07-20-2023 History of Present illness Narrative Subjective Patient ID: Melissa Marrufo is a 28 y.o. female who presents for Follow-up (Patient was having some elevated liver enzymes, had labs completed for today at [facility]. ). HPI Melissa is seen today in follow-up. Transaminases have stabilized this lab work for treatable liver disease have returned negative. Her FibroScan done in [place] did show mild steatohepatitis. I advise she and her mother that this is very consistent with fatty liver or nonalcoholic steatohepatitis. We discussed diet lifestyle changes aggressive dietary therapy with reduction of simple sugars and exercise. Repeat transaminases every 6 months and FibroScan yearly. Review of Systems Constitutional: Negative. HENT: Negative. [...] Diagnoses and all orders for this visit: Nonalcoholic fatty liver disease - Comprehensive Metabolic Panel; Future - Liver Elastography (Fibroscan); Future Discussed dietary strategies to lower risk of progression. Weight loss aggressive reduction of free sugar in diet, exercise and following Mediterranean diet will follow-up in 6 months with repeat liver panel and FibroScan. Henrik Spencer DO 07/20/23 5:19 PM documented in this encounter [facility] Work Phone: History of Present illness Narrative 06-19-2023 Henrik Spencer DO - 06/19/2023 9:15 AM EST Note Date & Type Note Facility 06-19-2023 History of Present illness Narrative Subjective Patient ID: Melissa Marrufo is a 28 y.o. female who presents for New Patient Visit (Pt seen today for elevated liver enzymes blood work at [facility]. Patient denies any GI complaints at this [...] would recommend liver biopsy and referral to automotive maintenance technician. Henrik Spencer DO 06/19/23 9:35 AM documented in this encounter [facility] Work Phone: Clinical Note 03-17-2022 Note Date & Type Note Facility 03-17-2022 Note [facility] Work Phone: Pap Smear Specimen Adequacy March 17, 2022 12:37pm Comment . Satisfactory for evaluation. Endocervical and/or squamous metaplasticcells (endocervical component) are present. Comment on above: Satisfactory for lexy luation. Endocervical and/or squamous metaplasticcells (endocervical component) are present. Evaluation note Note Date & Type Note Facility Evaluation note No assessment information availa ble [facility] Work Phone: Evaluation note Note Date & Type Note Facility Evaluation note Diagnosis Onset Date Acute upper respiratory infection acute Contact with or suspected ex posure to other viral communicable disease acute [id number] acute [facility] Work Phone: Evaluation note Note Date & Type Note Facility Evaluation note Diagnosis Onset Date BMI 36.0-36.9,adult acute Other obesity acute Encounter for routine gyneco logical examination noneactive [facility] Work Phone: Evaluation note Note Date & Type Note Facility Evaluation note Diagnosis Elevated liver enzymes- Primary Other nonspecific abnormal serum enzyme levels documented in this encounter [facility] Work Phone: Evaluation note Note Date & Type Note Facility Evaluation note Diagnosis Nonalcoholic fatty liver disease- Primary documented in this encounter [facility] Work Phone: Evaluation note Note Date & Type Note Facility Evaluation note Diagnosis Nonalcoholic fatty liver disease- Primary documented in this encounter [facility] Work Phone: Summary Purpose Family History No Family History Records Found Relationship Condition Age at Onset Recorded Date/T christie Not Specified Diabetes mellitus Unknown Anxiety Unknown Myocardial infarction Unknown Hypertension Unknown Advance Directives No Advanced Directives Records Found Advance Directive Response Recorded Date/ Time Living Will No April 08 10:26am Power of Data Analyst Etl Developer No April 08, 2017 10:26am Advance Directive Response Recorded Date/ Time Living Will No April 08 9:26am Power of Data Analyst Etl Developer No April 08, 2017 9:26am Chief Complaint and Reason for Visit Chief Complaint LATERAL EPICONDYLITI S. PT HAS RX SKIN Chief Complaint L LATERAL EPICONDYLI TIS. 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) Reason for Visit Acute upper respirat ory infection Contact with or suspected exposure to other viral communicable disease [id number] Chief Complaint SORE THROAT/COUGH/PN D Annual (BONE DRIER) Reason for Visit Acute upper respirat ory infection Contact with or suspected exposure to other viral communicable disease [id number] Chief Complaint Annual (BONE DRIER) E ORDERS Reason for Visit BMI 36.0-36.9,adult Other obesity Encounter for routine gynecological examination Chief Complaint Annual (BONE DRIER) E ORDERS INT LABS Reason for Visit BMI 36.0-36.9,adult Other obesity Encounter for routine gynecological examination Chief Complaint Annual (BONE DRIER) E ORDERS INT LABS Abnormal levels of other serum enzymes Reason for Visit BMI 36.0-36.9,adult Other obesity Encounter for routine gynecological examination Reason for Referral Specialty Diagnoses / Procedures Referred By Mitchell li Referred To Contact Gastroenterology Diagnoses Nonalcoholic fatty liver disease Procedures Liver Elastography (Fibroscan) Henrik Spencer, DO [address] [facility] [place] [address] Referral ID Status Reason Start Date Expiration Date V isits Requested Visits Authorized [id number] Pending Review 07/20/2023 07/19/2024 1 1 Additional Source Comments INFORMATION SOURCE (unrecogn ized section and content) DATE CREATED AUTHOR 11/01/2017 [facility] DATE CREATED AUTHOR AUTHOR'S ORGANIZ ATION 01/29/2024 [facility] DATE CREATED AUTHOR AUTHOR'S ORGANIZ ATION 11/27/2024 [facility] Teams (unrecognized sec tion and content) Team Status: Active Member Role Status Dates Dr. Harry Francis MD Family Provider Active No Primary Care Physician Primary Care Provider Active Team Status: Inactive Member Role Status Dates No Primary Care Physician Primary Care Provider Active Dr. Colt Lemus MD Attending Provider Active Team Status: Inactive Member Role Status Dates Dr. Harry Francis MD Referring Provider Active Dr. Oriana Li MD Attending Provider Active Team Status: Inactive Member Role Status Dates No Primary Care Physician Primary Care Provider Active Dr. Oriana Li MD Attending Provider, Referr ing Provider Active Team Status: Active Member Role Status Dates Dr. Harry Francis MD Family Provider Active FE Davidson Primary Care Provider Active Team Status: Inactive Member Role Status Dates Dr. Oriana Li MD Attending Provider, Referr ing Provider Active FE Davidson Primary Care Provider Active Barrel Filler Head Relationship Specialty Start Date End Date Melissa Lassiter APRN-FIELD MECHANIC/SITE LEAD [address] [address] PCP - General Family Medicine 04/14/23 Barrel Filler Head Relationship Specialty Start Date End Date Melissa Lassiter APRN-FIELD MECHANIC/SITE LEAD [address] [address] PCP - General Family Medicine 04/14/23 Barrel Filler Head Relationship Specialty Start Date End Date Melissa Lassiter APRN-FIELD MECHANIC/SITE LEAD [address] [id number] PCP - General Family Medicine 04/14/23 Henrik Spencer DO [address] [facility] [address] [place] [address] PCP - MMO ACO PCP 07/14/23 Reason for Visit (unrecogniz ed section and content) Reason Comments New Patient Visit Pt seen today for el evated liver enzymes blood work at [facility]. Patient denies any GI complaints at this time. Reason Comments Follow-up Patient was having s ome elevated liver enzymes, had labs completed for today at [facility]. Reason Comments Follow-up Patient in office fo r 6 month follow up; ultrasound results in mailbox this morning for review. No concerns at this time. FOR RECORDS PERTAINING TO PATIENTS WHO ARE [...] BE BASED ON THE PRIMARY CLINICAL RECORDS. Float: [employer] provides no warranty or guarantee of the accuracy or completeness of information in this document.
--- NOTE | 2024-11-29 07:20 | US_ITS ---
PROCEDURE: ABD LIMITED W/ ELASTOGRAPHY REASON FOR EXAM: FATTY LIVER COMPARISON: Prior study dated January 19, 2024. TECHNIQUE: Right upper quadrant abdominal ultrasound. Michael ElastQ Imaging shear wave elastography for non-invasive assessment of liver tissue stiffness. Michael EPIQ Elite. FINDINGS: LIVER: Size: Unremarkable Length: 15.5 cm Echotexture: Diffusely echogenic suggesting fatty infiltration Contour: Normal Lesions: None identified Elastography: EQI Med: 9.5 kPa EQI Med Demetrio: 1.77 m/s IQR/Med: 20.5 %* GALLBLADDER: No stones sludge wall thickening or tenderness. COMMON BILE DUCT: Normal measuring 2.2 mm . PANCREAS: Normal Visualized portions of the right kidney are unremarkable. No right upper quadrant ascites. US/ABD Limited w/ Elastography IMPRESSION: Moderate hepatic fibrosis Diffuse fatty infiltration of the liver. Reference Values: SRU <1.37 m/s (5.7kPa): No to mild fibrosis 1.37 m/s - 2.2 m/s: Moderate to severe fibrosis >2.2 m/s (15kPa): Significant fibrosis / cirrhosis METAVIR Score F2 or higher: 1.34 m/s (5.7kPa) F3 or higher: 1.55 m/s (7.3kPa) F4: 1.80 m/s (10kPa) * If the IQR/Med is >30%, the variance in the measurements is a large and the a ccuracy of the measurement may be in question. Reading Location: [place] [id number]
== END | disposition home or self-care (01) ==
PROVIDERS: PCP Nurse Practitioner Family; Referring Provider Internal Medicine; Visit Provider Internal Medicine
DX: K76.0 Fatty (change of) liver, not elsewhere classified (principal); R74.8 Abnormal levels of other serum enzymes
CPT/HCPCS: 76705; 76981

== ENCOUNTER → 2025-01-01 | Outpatient (CLI) | payer OTHER, SELFPAY ==
--- OUTSIDE RECORDS SUMMARY | 2025-01-01 06:08 | XMS RPT_ITS | CCD ---
Author Organization [facility] Care Team Providers Care Engineering Faculty Name Role Phone MADALYN HELM Unavailable Unavailable AIDAN DEAN Unavailable Unavailable Dr. Harry Francis Primary Care Provider Dr. Harry Francis Referring Provider ASHLEIGH Pink Attending Provider Dr. Oriana Li Attending Provider Dr. Harry Francis Referring Provider Unavailable Dr. Oriana Li Attending Provider [phone] PATCHER-LOCATOR SPECIALIST, [place] Primary Care Provider [phone] HENRIK SPENCER R Attending Unavailable DWAINE, [place] Primary Care Unavailable HENRIK SPENCER R Attending Unavailable DWAINE, [place] Primary Care Unavailable THOMHENRIK EVANGELISTA R Attending Unavailable DWAINE, [place] Primary Care Unavailable Thomae DOHenrik R Unavailable Dwaine RECORDER HELPER GRAVITY PROSPECTING-C, [place] Primary Care Provider Dr. Henrik Spencer DO Attending Provider Dr. Henrik Spencer DO Referring Provider [phone] ThomManuel evangelistae Attending Unavailable Thomae, Henrik Referring Unavailable Dwaine, Melissa Primary Care Unavailable Thomae, Henrik Attending Unavailable Thomae, Henrik Referring Unavailable Dwaine, [place] Primary Care Unavailable CT MCKAY Attending Unavailable Dwaine, [place] Primary Care Unavailable Oriana Li Attending Unavailable Dwaine, [place] Primary Care Unavailable Dwaine, Melissa Referring Unavailable Thomae, Henrik Attending Unavailable Thomae, Henrik Referring Unavailable Dwaine, [place] Primary Care Unavailable Allergies Allergy Classification Reported Allergen(s) Allergy Type Date of Onset Reaction(s) Facility (14 sources) carBAMazepine; Translations: [CARBAMAZEPINE] Drug Allergy 09-27-2017 Anaphylaxis [facility] Repository (1 source) DULoxetine; Translations: [DULOXETINE] Drug Allergy 09-27-2017 AOF [facility] Repository Medications Current Medications Medication Drug Class(es) Dates Sig (Normalized) Sig (Original) NON FORMULARY (3 sources) NON FORMULARY Re new Care Probiotic 30billion Active NON FORMULARY Re new Care Probiotic 30billion 0 Active zinc gluconate 50 mg oral ta blet (3 sources) zinc gluconate 5 0 mg tablet Take by mouth once daily. Active Completed/Discontinued Medications Medication Drug Class(es) Dates Sig (Normalized) Sig (Original) amitriptyline hydrochloride 10 mg oral tablet (8 sources) Tricyclic Antidepressant Start: 05-17-2017 End: 06-05-2017 take 1 tablet by mouth once Amitriptyline 10 mg tablet Discontinued 10 mg PO ONCE May 17, 2017 1:00am June 05, 2017 5:17pm amoxicillin 875 mg oral tablet (8 sources) Penicillin-class Antibacterial Start: 06-30-2018 End: 12-26-2018 take 1 tablet by mouth twice daily Amoxicillin 875 mg tablet Discontinued 875 mg PO TWICE A DAY 20 0 June 30, 2018 1:00am December 26, 2018 9:42am amoxicillin 875 mg / clavulanate 125 mg oral tablet (8 sources) Penicillin-class Antibacterial Start: 06-05-2017 End: 06-15-2017 Amoxicillin-Pot Clavulanate (Augmentin) 875-125 mg tablet Discontinued 1 {tbl} PO Q12H 20 10 0 June 05, 2017 1:00am June 14, 2017 1:00am June 15, 2017 1:06am Acute sinusitis, unspecified Antioxidiant Lotion (8 sources) Start: 04-08-2017 End: 06-25-2018 Antioxidiant Lotion Discontinued 1 APPLIC TP DAILY April 08, 2017 10:28am June 25, 2018 2:55pm Start: 04-08-2017 End: 06-25-2018 Antioxidiant Lotion Disconti nued 1 NMA TP DAILY April 08, 2017 1:00am June 25, 2018 2:55pm Start: 04-08-2017 End: 06-25-2018 Antioxidiant Lotion Disconti nued 1 APPLIC TP DAILY April 08, 2017 1:00am June 25, 2018 2:55pm Start: 04-08-2017 End: 06-25-2018 Antioxidiant Lotion Disconti nued 1 APPLIC TP DAILY April 08, 2017 12:00am June 25, 2018 1:55pm Benzoyl Peroxide (8 sources) Start: 04-08-2017 End: 06-25-2018 take 2 tablets by mouth once daily Clear Skin Discontinued 2 TABLET PO DAILY April 08, 2017 10:28am June 25, 2018 2:55pm Start: 04-08-2017 End: 06-25-2018 Clear Skin Discontinued 2 {t bl} PO DAILY April 08, 2017 1:00am June [...] carBAMazepine 200 mg extended release oral capsule (8 sources) Mood Stabilizer Start: 04-08-2017 End: 06-05-2017 take 1 capsule by mouth twice daily Carbamazepine 200 MG capsule, ER multiphase 12 hr Discontinued 200 mg PO TWICE A DAY April 08, 2017 1:00am June 05, 2017 5:16pm Norgestimate-Ethinyl Estradiol (20 sources) Progestin, Estrogen Start: 03-23-2023 End: 04-08-2024 Norgestimate-Ethiny l Estradiol (Sprintec (28)) 0.25-35 mg-mcg tablet Discontinued 1 {tbl} PO daily 84 March 23, 2023 12:50pm April 08, 2024 11:11am Other obesity Other obesity Start: 03-23-2023 take 1 tablet by qamar once daily Norgestimate-Ethinyl Estradiol (Sprintec (28)) 0.25-35 mg-mcg tablet Active 1 TABLET PO daily March 23, 2023 11:50am Start: 03-17-2022 End: 03-23-2023 Norgestimate-Ethinyl Estradi ol (Sprintec (28)) 0.25-35 mg-mcg tablet Discontinued 1 {tbl} PO daily 84 March 17, 2022 11:40am March 23, 2023 12:51pm Start: 03-17-2022 End: 03-23-2023 take 1 tablet [...] 17, 2022 10:40am Start: 03-08-2021 End: 03-17-2022 Norgestimate-Ethinyl Estradi ol (Sprintec (28)) 0.25-35 mg-mcg tablet Discontinued 1 {tbl} PO daily 84 March 08, 2021 1:17pm March 17, 2022 [...] 08, 2021 1:17pm Start: 02-27-2020 End: 03-08-2021 Norgestimate-Ethinyl Estradi ol (Sprintec (28)) 0.25-35 mg-mcg tablet Discontinued 1 {tbl} PO daily 84 February 27, 2020 11:38am March 08, 2021 1:17pm Start: 02-27-2020 End: [...] 08, 2021 1:17pm Start: 11-01-2019 End: 02-27-2020 Norgestimate-Ethinyl Estradi ol (Sprintec (28)) 0.25-35 mg-mcg tablet Discontinued 1 {tbl} PO daily 84 November 01, 2019 11:06am February 27, 2020 11:38am Start: 11-01-2019 End: 02-27-2020 take 1 tablet by mouth once daily Norgestimate-Ethinyl Estradiol (Sprintec (28)) 0.25-35 mg-mcg tablet Discontinued 1 TABLET PO daily 84 November 01, 2019 10:06February 27, 2020 10:38am Start: 11-01-2019 End: 02-27-2020 take 1 tablet by mouth once daily Norgestimate-Ethinyl Estradiol (Sprintec (28)) 0.25-35 mg-mcg tablet Discontinued 1 TABLET PO daily 84 November 01, 2019 11:06February 27, 2020 11:38am Start: 05-16-2019 End: 11-01-2019 Norgestimate-Ethinyl Estradi ol (Sprintec (28)) 0.25-35 mg-mcg tablet Discontinued 1 {tbl} PO daily 84 May 16, 2019 2:10pm November 01, 2019 11:06am Start: 05-16-2019 End: 11-01-2019 take 1 tablet [...] tablet Discontinued 1 TABLET PO daily 84 June 27, 2018 5:31pm May 16, 2019 2:10pm Start: 06-27-2018 End: 05-16-2019 Norgestimate-Ethinyl Estradi ol (Sprintec (28)) 0.25-35 mg-mcg tablet Discontinued 1 {tbl} PO daily 84 3 June 27, 2018 1:00am May 16, 2019 2:10pm Start: 06-27-2018 End: 05-16-2019 take 1 tablet by mouth once daily Norgestimate-Ethinyl Estradiol (Sprintec (28)) 0.25-35 mg-mcg tablet Discontinued 1 TABLET PO daily 84 June 27, 2018 1:00am May 16, 2019 2:10pm Start: 06-27-2018 End: 05-16-2019 take 1 tablet by mouth once daily Norgestimate-Ethinyl Estradiol (Sprintec (28)) 0.25-35 mg-mcg tablet Discontinued 1 TABLET PO daily 84 June 27, 2018 12:00am May 16, 2019 1:10pm fluticasone propionate 0.05 mg/actuat metered dose nasal spray (8 sources) Corticosteroid Start: 06-30-2018 End: 12-26-2018 take 50 ug nasal route once daily Fluticasone Propionate (Flonase Allergy Relief) 50 mcg/actuation spray,suspension Discontinued 2 NMA INTRANASAL DAILY 9.9 0 June 30, 2018 1:00am December 26, 2018 9:42am administer into each nostril Start: 06-30-2018 End: 12-26-2018 take 1 spray(s) nasal route once daily Fluticasone Propionate (Flonase Allergy Relief) 50 mcg/actuation spray,suspension Discontinued 2 SPRAY INTRANASAL DAILY 9.9 June 30, 2018 12:00am December 26, 2018 8:42am administer into each nostril gabapentin 100 mg oral capsule (8 sources) Anti-epileptic Agent Start: 06-05-2017 End: 06-25-2018 take 1 capsule by mouth once daily Gabapentin 100 mg capsule Discontinued 100 mg PO daily June 05, 2017 1:00am June 25, 2018 2:55pm Green Tea Cleanser (8 sources) Start: 04-08-2017 End: 06-25-2018 Green Tea Cleanser Discontinued 1 APPLIC PO DAILY April 08, 2017 10:28am June 25, 2018 2:55pm Start: 04-08-2017 End: 06-25-2018 Green Tea Cleanser Discontin ued 1 NMA PO DAILY April 08, 2017 1:00am June 25, 2018 2:55pm Start: 04-08-2017 End: 06-25-2018 Green Tea Cleanser Discontin ued 1 APPLIC PO DAILY April 08, 2017 1:00am June 25, 2018 2:55pm Start: 04-08-2017 End: 06-25-2018 Green Tea Cleanser Discontin ued 1 APPLIC PO DAILY April 08, 2017 12:00am June 25, 2018 1:55pm ivermectin 10 mg/ml topical cream (8 sources) Antiparasitic, Pediculicide Start: 04-08-2017 End: 06-05-2017 Ivermectin 30 GM cream Discontinued 1 NMA TP DAILY April 08, 2017 1:00am June 05, 2017 5:17pm Start: 04-08-2017 End: 06-05-2017 Ivermectin Discontinued 1 AP PLIC TP DAILY April 08, 2017 12:00am June 05, 2017 4:17pm Promised Cream (8 sources) Start: 04-08-2017 End: 06-05-2017 Promised Cream Discontinued 1 APPLIC TP DAILY April 08, 2017 10:28am June 05, 2017 5:17pm Start: 04-08-2017 End: 06-05-2017 Promised Cream Discontinued 1 NMA TP DAILY April 08, 2017 1:00am June [...] Spironolactone (Aldactone) 50 mg tablet Discontinued 50 mg PO TWICE A DAY 180 90 4 March 17, 2022 11:40am March 23, 2023 12:51pm Problems Problem Classification Problem Date Documented Da te Episodic/Chronic Headache; including migraine (8 sources) Cervicogenic headache; Translations: [Cervicogenic headache] 05-23-2017 Episodic Immunizations and screening for infectious disease (9 sources) Contact with and (suspected) exposure to other viral communicable diseases; Translations: [Contact with or suspected exposure to other viral communicable disease] Episodic Other bone disease and musculoskeletal deformities (16 sources) Segmental and somatic dysfunction; Translations: [Segmental and somatic dysfunction of cervical region] 05-17-2017 Episodic Other endocrine disorders (8 sources) Polycystic ovary; Translations: [Polycystic ovarian syndrome] 03-08-2021 Chronic Comment on above: sprintec, weight los s, aldactone Other female genital disorders (8 sources) Abnormal uterine bleeding; Translations: [Abnormal uterine and vaginal bleeding, unspecified] 03-08-2021 Chronic Comment on above: irregular Other liver diseases (6 sources) Fatty (change of) liver, not elsewhere classified; Translations: [Other chronic nonalcoholic liver disease] Onset: 07-20-2023 07-20-2023 Chronic Other liver diseases (7 sources) Elevated liver enzymes level; Translations: [Abnormal levels of other serum enzymes] Onset: 06-19-2023 03-28-2023 Episodic Comment on above: lab evaluation and R UQ ordered, PCP referral. recommended stopping aldactone until evaluation complete Other liver diseases (4 sources) Abnormal levels of other serum enzymes; Translations: [Abnormal levels of other serum enzymes] Onset: 06-19-2023 Episodic Other nervous system disorders (1 source) Trigeminal neuralgia; Translations: [Trigeminal neuralgia] Onset: 09-27-2017 Episodic Other nutritional; endocrine; and metabolic disorders (4 sources) Obesity; Translations: [Other obesity] 03-23-2023 Chronic Comment on above: prelim discussion, h as had success with WW in the past. ordered labs, needs intake assessment questionnaire. Other nutritional; endocrine; and metabolic disorders (4 sources) Body mass index 30+ - obesity; Translations: [Body mass index (BMI) 36.0-36.9, adult] 03-23-2023 Chronic Other nutritional; endocrine; and metabolic disorders (3 sources) Body mass index (BMI) 36.0-36.9, adult; Translations: [Body Mass Index 36.0-36.9, adult] 03-23-2023 Chronic Other nutritional; endocrine; and metabolic disorders (3 sources) Other obesity; Translations: [Obesity, unspecified] 03-23-2023 Chronic Other skin disorders (8 sources) Acne; Translations: [Acne, unspecified] 06-25-2018 Episodic Other upper respiratory infections (17 sources) Acute sinusitis; Translations: [Acute sinusitis, unspecified] Episodic Results Test Name Value Interpretation Reference Range Facility ABD Limited w/ Elastographyo n 11-29-2024 ABD Limited w/ Elastography [facility] Services [address] [place] [id number] ABD Limited w/ Elastography MR#: [id number] Acct: [id number] Name: MELISSA MARRUFO Rep #: [id number] : 1995 F 29 From: Quique euceda MD PCP: FE Davidson Status: REG CLI Study: ABD Limited w/ Elastography Date of Exam: 11/12 01/06 Exam# [id number] Ordering Dr: Henrik Spencer DO PROCEDURE: ABD LIMITED W/ ELASTOGRAPHY REASON FOR EXAM: FATTY LIVER COMPARISON: Prior study dated January 19, 2024. TECHNIQUE: Right upper quadrant abdominal ultrasound. Michael ElastQ Imaging shear wave elastography for non- invasive assessment of liver tissue stiffness. Michael EPIQ Elite. FINDINGS: LIVER: Size: Unremarkable Length: 15.5 cm Echotexture: Diffusely echogenic suggesting fatty infiltration Contour: Normal Lesions: None identified Elastography: EQI Med: 9.5 kPa EQI Med Demetrio: 1.77 m/s IQR/Med: 20.5 %* GALLBLADDER: No stones sludge wall thickening or tenderness. COMMON BILE DUCT: Normal measuring 2.2 mm . PANCREAS: Normal Visualized portions of the right kidney are unremarkable. No right upper quadrant ascites. US/ABD Limited w/ Elastography IMPRESSION: Moderate hepatic fibrosis Diffuse fatty infiltration of the liver. Reference Values: SRU <1.37 m/s (5.7kPa): No to mild fibrosis 1.37 m/s - 2.2 m/s: Moderate to severe fibrosis >2.2 m/s (15kPa): Significant fibrosis / cirrhosis METAVIR Score F2 or higher: 1.34 m/s (5.7kPa) F3 or higher: 1.55 m/s (7.3kPa) F4: 1.80 m/s (10kPa) * If the IQR/Med is >30%, the variance in the measurements is a large and the accuracy of the measurement may be in question. Reading Location: [place] [address] CC: FE Lassiter; Dr. Henrik Spencer DO Energy Systems Laboratory Director: Signed Normal [facility] College Administrator Office Visit Reporton 04-08-2024 College Administrator Office Visit Report [facility] [address], [address] [place] [address] OFFICE VISIT Date of Service: 04/08/24 MR#: [id number] Acct: [id number] Name: MELISSA MARRUFO Rep #: [id number] : 1995 Provider: Dr. 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 Patient seeing [...] acute distress, well developed and well groomed HENGA Head: normal to inspection and normocephalic Ears: [...] cervical discharge (more content not included)... Normal [facility] ABD Limited w/ Elastographyo n 01-19-2024 ABD Limited w/ Elastography [facility] Imaging Services [address] [place] [address] ABD Limited w/ Elastography MR#: [id number] Acct: [id number] Name: MELISSA MARRUFO Rep #: [id number] : 1995 F 28 From: Quique euceda MD PCP: FE Davidson Status: REG CLI Study: ABD Limited w/ Elastography Date of Exam: 11/05 Exam# [id number] Ordering Dr: Henrik Spencer DO [id number] STUDY: ABDOMINAL ULTRASOUND - RIGHT UPPER QUADRANT; ELASTOGRAPHY REASON FOR VISIT: Female, 28 years old. Fatty infiltration of the liver. TECHNIQUE: Ultrasound evaluation of the right upper quadrant was performed with real-time and static valentin-scale imaging. Point quantification shear wave elastography was performed (Reamaze). TECHNICAL QUALITY: Adequate. COMPARISON: Comparison is made [...] EDT , CC: FE Lassiter; Dr. Henrik Spencer, Energy Systems Laboratory Director: Signed Normal [facility] Bilirubin, Directon 01-17-20 24 Bilirubin.direct [Mass/Vol] 0.20 mg/dL Normal 0.00-0.30 [facility] Comment on above: Performed By: #### L 501.4700, [id number] #### [facility] [address] [place], [address] Comprehensive Metabolic Prof ilon 01-17-2024 Albumin [Mass/Vol] 4.4 g/dL Normal 3.2-5.0 [facility] Comment on above: Performed By: #### L 501.4700, [id number] #### [facility] [address] [place], [address] Albumin/Globulin [Mass ratio] 1.2 {ratio} Normal 0.9-2.4 [facility] Comment on above: Performed By: #### L [id number], [id number] #### [facility] [address] [place], [address] ALK P 63 U/L Normal 45-117 [facility] Comment on above: Performed By: #### L [id number], [id number] #### [facility] [address] [place], [address] ALT [Catalytic activity/Vol] 16 U/L Normal 13-56 [facility] Comment on above: Performed By: #### L [id number], [id number] #### [facility] [address] [place], [address] AST [Catalytic activity/Vol] 12 U/L Low 15-37 [facility] Comment on above: Performed By: #### L [id number], [id number] #### [facility] [address] [place], [address] Bilirubin [Mass/Vol] 0.60 mg/dL Normal 0.20-1.00 [facility] Comment on above: Result Comment: For patients on eltrombopag therapy, use of Dimension [place] TBIL is not recommended. Performed By: #### L [id number], [id number] #### [facility] [address] [place], [address] BUN/CRE 15.1 RATIO Normal 10-20 [facility] Comment on above: Performed By: #### L [id number], [id number] #### [facility] [address] [place], [address] CA,Total 9.8 mg/dL Normal 8.5-10.1 [facility] Comment on above: Performed By: #### L [id number], [id number] #### [facility] [address] [place], [address] Chloride [Moles/Vol] 107 mmol/L Normal 98-107 [facility] Comment on above: Performed By: #### L 501.4700, [id number] #### [facility] [address] [place], [address] CO2 [Moles/Vol] 25.0 mmol/L Normal 21.0-32.0 [facility] Comment on above: Performed By: #### L [id number], [id number] #### [facility] [address] [place], [address] Creatinine [Mass/Vol] 0.73 mg/dL Normal 0.55-1.02 [facility] Comment on above: Result Comment: The validity of the calculated GFR GFRAA in patients over 70 years has not been determined. Clinical correlation is essential. Performed By: #### L 501.4700, [id number] #### [facility] [address] [place], [address] EST GFR - AA 120 mL/min Normal >60 [facility] Comment on above: Result Comment: Afri can Micronesian GFR Calc Performed By: #### L [id number], [id number] #### [facility] [address] [place], [address] GAP 7 Normal 5-15 [facility] Comment on above: Performed By: #### L [id number], [id number] #### [facility] [address] [place], [address] GFR/1.73 sq M.predicted among non-blacks MDRD (S/P/Bld) [Vol rate/Area] 99 mL/min/{1.73_m2} Normal >60 [facility] Comment on above: Result Comment: Non- GFR Calc Performed By: #### L [id number], [id number] #### [facility] [address] [place], [address] Globulin (S) [Mass/Vol] 3.7 g/dL Normal 2.2-4.2 [facility] Comment on above: Performed By: #### L [id number], [id number] #### [facility] [address] [place], [address] Glucose [Mass/Vol] 93 mg/dL Normal 74-106 [facility] Comment on above: Performed By: #### L [id number], [id number] #### [facility] [address] [place], [address] Potassium [Moles/Vol] 3.7 mmol/L Normal 3.5-5.1 [facility] Comment on above: Performed By: #### L [id number], [id number] #### [facility] [address] [place], [address] Sodium [Moles/Vol] 139 mmol/L Normal 136-145 [facility] Comment on above: Performed By: #### L [id number], [id number] #### [facility] [address] [place], [address] T PROT 8.1 g/dL Normal 6.4-8.2 [facility] Comment on above: Performed By: #### L [id number], [id number] #### [facility] [address] [place], [address] Urea nitrogen [Mass/Vol] 11 mg/dL Normal 7-18 [facility] Comment on above: Performed By: #### L [id number], [id number] #### [facility] [address] [place], [address] INR in Blood by Coagulation assayOrdered By: Oriana Li on 03-29-2023 INR Coag (Bld) [Relative time] 1.1 {INR} [facility] - CoagulationOrde red By: Oriana Li on 03-29-2023 PT Coag (PPP) [Time] 13.8 s 11.7-14.9 [facility] Absolute lymphocyte countOrd ered By: Oriana Li on 03-24-2023 Lymphocytes Auto (Unsp spec) [#/Vol] 2.33 10*3/uL 0.83-4.51 [facility] Basophil percentageOrdered B y: Oriana Li on 03-24-2023 Basophils/100 WBC (Bld) 0.9 % 0-1 [facility] Bilirubin [Mass/Vol] 0.70 mg/dL 0.20-1.00 [facility] Comment on above: For patients on eltr ombopag therapy, use of Dimension [place] TBIL is not recommended. Chloride [Moles/Vol] 108 mmol/L 98-107 [facility] Cholesterol [Mass/Vol] 159 mg/dL <200 [facility] Comment on above: <200 mg/dL Desirable 200-240 mg/dL Borderline >240 mg/dL High Risk Eosinophils/100 WBC (Bld) 0.4 % 0-5 [facility] Glucose [Mass/Vol] 113 mg/dL 74-106 [facility] Comment on above: Fasting Glucose resu lt from 100 to 125 mg/dL suggests IMPAIRED HOMEOSTASIS per A.D.A. criteria. Neutrophils (Bld) [#/Vol] 3.6 10*3/uL 2.0-7.7 [facility] Neutrophils/100 WBC (Bld) 54.4 % 47-70 [facility] Potassium [Moles/Vol] 3.9 mmol/L 3.5-5.1 [facility] Protein [Mass/Vol] 7.2 g/dL 6.4-8.2 [facility] Sodium [Moles/Vol] 141 mmol/L 136-145 [facility] Triglyceride [Mass/Vol] 105 mg/dL <199 [facility] Comment on above: The drugs N-Acetylcy steine and Metamizole may falsely depress this assay.Serum Triglycerides Reference Interval Normal <150 mg/dL Borderline high 150 - 199 mg/dL High 200 - 499 mg/dL Very High > or = 500 mg/dL WBC (Bld) [#/Vol] 6.7 10*3/uL 4.4-11.0 [facility] Blood erythrocytes count (nu mber/volume)Ordered By: Oriana Li on 03-24-2023 RBC (Bld) [#/Vol] 4.43 10*6/uL 4.2-5.4 [facility] Blood hemoglobin measurement (mass/volume)Ordered By: Oriana Li on 03-24-2023 Hemoglobin (Bld) [Mass/Vol] 13.4 g/dL 12.0-15.0 [facility] Blood lymphocytes/100 leukoc ytesOrdered By: Oriana Li on 03-24-2023 Lymphocytes/100 WBC (Bld) 34.9 % 19-41 [facility] Blood monocytes/100 leukocyt esOrdered By: Oriana Li on 03-24-2023 Monocytes/100 WBC (Bld) 9.3 % 0-10 [facility] Blood platelet mean volumeOr dered By: Oriana Li on 03-24-2023 Platelet mean volume (Bld) [Entitic vol] 11.6 fL 6.2-12.0 [facility] Determination of erythrocyte mean corpuscular volume (MCV)Ordered By: Oriana Li on 03-24-2023 MCV (RBC) [Entitic vol] 93.2 fL 81-99 [facility] Hematocrit Auto (Bld) [Volum e fraction]Ordered By: Oriana Li on 03-24-2023 Hematocrit (Bld) [Volume fraction] 41.3 % 37-47 [facility] Laboratory - Chemistry and C hemistry - challengeOrdered By: Oriana Li on 03-24-2023 ALP [Catalytic activity/Vol] 75 U/L 45-117 [facility] ALT [Catalytic activity/Vol] 194 U/L 13-56 [facility] CO2 [Moles/Vol] 22.0 mmol/L 21.0-32.0 [facility] Globulin (S) [Mass/Vol] 4.0 g/dL 2.2-4.2 [facility] Urea nitrogen/Creatinine [Mass ratio] 11.0 mg/mg 10-20 [facility] Laboratory - Hematology and Cell countsOrdered By: Oriana Li on 03-24-2023 Erythrocyte distribution width (RBC) [Entitic vol] 43.4 fL 35.1-43.9 [facility] Erythrocyte distribution width (RBC) [Ratio] 12.7 % 11.6-14.6 [facility] Immature granulocytes/100 WBC (Bld) 0.100 % 0.0-0.9 [facility] Comment on above: IG% - Immature Granu locytes (promyelocytes, myelocytes and metamyelocytes) > 1% indicates that a LEFT SHIFT is Present. MCH (RBC) [Entitic mass] 30.2 pg 27.0-32.0 [facility] Nucleated RBC/100 WBC (Bld) [Ratio] 0 % 0-5 [facility] MCHC Auto (RBC) [Mass/Vol]Or dered By: Oriana Li on 03-24-2023 MCHC (RBC) [Mass/Vol] 32.4 g/dL 32-36 [facility] No Panel InformationOrdered By: Oriana Li on 03-24-2023 Estimated GFR (MDRD) Amer 121 mL/min >60 [facility] Comment on above: GFR Calc Estimated GFR (MDRD) Non-Af Amer 100 mL/min >60 [facility] Comment on above: Non- GFR Calc Thyroid Stimulating Hormone (TSH) 2.08 uIU/mL 0.358-3.74 [facility] Platelets bldOrdered By: Faisal Li on 03-24-2023 Platelets (Bld) [#/Vol] 195 10*3/uL 150-450 [facility] Serum or plasma albumin cherise urement (mass/volume)Ordered By: Oriana Li on 03-24-2023 Albumin [Mass/Vol] 3.2 g/dL 3.2-5.0 [facility] Serum or plasma albumin/glob ulin mass ratioOrdered By: Oriana Li on 03-24-2023 Albumin/Globulin [Mass ratio] 0.8 {ratio} 0.9-2.4 [facility] Serum or plasma calcitriol m easurement (mass/volume)Ordered By: Oriana Li on 03-24-2023 1,25-dihydroxyvitamin D3 [Mass/Vol] 69.7 pg/mL 24.8-81.5 [facility] Comment on above: Performed at: - [address] [id number] Director: Julianna Garvin MD, Phone: [phone] Serum or plasma calcium cherise urement (mass/volume)Ordered By: Oriana Li on 03-24-2023 Calcium [Mass/Vol] 8.8 mg/dL 8.5-10.1 [facility] Serum or plasma cholesterol in HDL measurement (mass/volume)Ordered By: Oriana Li on 03-24-2023 Cholesterol in HDL [Mass/Vol] 61 mg/dL >40 [facility] Comment on above: The drugs N-Acetylcy steine and Metamizole may falsely depress this assay. Reference Range HDL <40 mg/dL Low HDL Cholesterol HDL >or= 60 mg/dL High HDL Cholesterol Serum or plasma cholesterol in VLDL measurement (mass/volume)Ordered By: Oriana Li on 03-24-2023 Cholesterol in VLDL [Mass/Vol] 21 mg/dL 5-40 [facility] Serum or plasma creatinine m easurement (mass/volume)Ordered By: Oriana Li on 03-24-2023 Creatinine [Mass/Vol] 0.73 mg/dL 0.55-1.02 [facility] Comment on above: The validity of the calculated GFR & GFRAA in patients over 70 years has not been determined. Clinical correlation is essential. Serum or plasma low density lipoprotein (LDL) cholesterol measurement (mass/volume)Ordered By: Oriana Li on 03-24-2023 Cholesterol in LDL [Mass/Vol] 77 mg/dL 0-130 [facility] Serum or plasma urea nitroge n measurement (mass/volume)Ordered By: Oriana Li on 03-24-2023 Urea nitrogen [Mass/Vol] 8 mg/dL 7-18 [facility] Thin prep Papanicolaou smear with manual screeningOrdered By: Oriana Li on 03-24-2023 Thin prep Papanicolaou smear with manual screening 212 U/L 15-37 [facility] Thin prep Papanicolaou smear with manual screening 11 5-15 [facility] Whole blood hemoglobin A1c/t otal hemoglobin ratio (mass fraction)Ordered By: Oriana Li on 03-24-2023 HbA1c (Bld) [Mass fraction] 5.1 % 3.8-5.6 [facility] Comment on above: Normal < 5.7 % Predi abetic 5.7 - 6.4 % Diabetic >or= 6.5 % Please note range changes. Basophil percentageOrdered B y: Colt Lemus on 10-07-2022 Potassium [Moles/Vol] 3.9 mmol/L 3.5-5.1 [facility] Cervical or vagninal specime n microscopic examination by cytology stain (reported ason 03-17-2022 Cytology report Cyto stain Doc (Cvx/Vag) Comment . [facility] Work Phone: Comment on above: The Pap smear is a s creening test designed to aid in thedetection of premalignant and malignant conditions of theuterine cervix. It is not a diagnostic procedure andshould not be used as the sole means of detecting cervicalcancer. Both false-positive and false-negative reports dooccur. Laboratory - Cytologyon Slipper Maker Cyto stain Nom (Cvx/Vag) [ID] Comment . [facility] Work Phone: Comment on above: Renetta Malcolm, Neurosurgical Nurse Practitioner (ASCP) Laboratory - Miscellaneous t estson 03-17-2022 Service comment (Unsp spec) [Interp] Comment . [facility] Work Phone: Comment on above: This liquid based Th inPrep(R) pap test was screened withthe use of an image guided system. Service comment (Unsp spec) [Interp] . . [facility] Work Phone: No Panel Informationon 03-17 Human Papillomavirus Screen Comment . [facility] Work Phone: Comment on above: The HPV DNA reflex c ze were not met with this specimenresult therefore, no HPV testing was performed.Performed at: [address] [id number] Director: Yanely Marcus MD, Phone: [phone] Pathology report final diagnosis Narrative Comment . [facility] Work Phone: Comment on above: NEGATIVE FOR INTRAEP ITHELIAL LESION OR MALIGNANCY. Laboratory - Microbiology an d Antimicrobial susceptibilityon 02-15-2022 SARS-CoV-2 (COVID-19) RNA AMALIA+probe Ql (Unsp spec) Not detected [facility] Work Phone: No Panel Informationon 02-15 Influenza Types A,B Rapid (Clinic) Not detected [facility] Work Phone: Basophil percentageon 2021 Potassium [Moles/Vol] 4.3 mmol/L 3.5-5.1 [facility] Work Phone: CNOVon 09-27-2017 CNOV Office Visit (PEMDNA) MELISSA MARRUFO ([id number]) 1995 FDate Time Provider Department09/27/17 8:00 AM MADALYN HELM During your visit today, we recorded the following information about you: Temperature Pulse Respiration Blood pressure 98.9 degrees 72/minute 16/minute 120/86 Weight Last Period 84.5 kg 09/23/17Dazach Helm DO 09/27/2017 9:35 AM SignedPediatric Integrative MedicinePatient Name: Melissa MarrufoMRN: [id number] Service: Pediatric Integrative MedicineRequesting Provider: Karl Ramirez LMTOpinion/advice regarding: trigeminal neuralgiaCopy of note will be sent to referring provider by US mailHPI: This is a 22 year old female who presents with cheek pain since . Has been taking Lyrica and ibuprofen for 2 years. Pain is achy, constant.Had nerve block with no improvement. Pain was 6-7/ 10, now 3-4 /10. Jobberrica Marquis alonzo stopped working.Fell in 2012, fell down 5 steps, scraped right side of face, had black eye,didn't develop facial pain until 2015. Pain starts over right side of nose andrefers back towards ear.Not burning in nature. Does get occasional headache. Had MRI and CT scan withnormal results.PAST MEDICAL HISTORY:PAST MEDICAL HISTORYDiagnosis Date- Allergic rhinitisBIRTH HISTORY: No pediatric history on file.PAST SURGICAL HISTORY:PAST SURGICAL HISTORYProcedure Laterality Date- ORAL SURGERY PROCEDURE Sterling TeethFAMILY HISTORY:FAMILY HISTORYProblem Relation Age of Onset- [...] ear to nose at 100 microamperes for [employer],neuroma, 58/01 40,13/396,783Pain decreased from 4/10 to 3/10ASSESSMENT AND PLAN:22 year old female with Trigeminal NeuralgiaContinue current medications.Will discuss with Physiatry about further recommendationsThanks for this consultation. Please page if any questions or concernsSIGNATURE: Madalyn Helm D.O.Pediatric Pediatric Integrative MedicinePAGER: [phone] of SERVICE: September 27, 2017TIME of SERVICE: 8:00 amReferring Provider: AIDAN DEAN [[id number]]Allergies As of Date: 09/27/2017 Noted Allergy ReactionCYMBALTA [...] TABLET as necessaryProblem List As Of Date: 09/27/2017(None)Encounte r Number: [id number] Status:Closed by MADALYN HELM DO on 09/27/[address] [facility] PROGRESSon 09-27-2017 PROGRESS HNO ID: [id number]: Madalyn Parkice: (none)Author Type: PhysicianType: Progress NotesFiled: 09/27/2017 9:35 AMNote Text:Pediatric Integrative MedicinePatient Name: Melissa MarrufoMRN: [id number] Service: Pediatric Integrative MedicineRequesting Provider: Karl Ramirez [...] SURGICAL HISTORYProcedure Laterality Date- ORAL SURGERY PROCEDURE Sterling TeethFAMILY HISTORY:FAMILY HISTORYProblem Relation Age of Onset- [...] concernsSIGNATURE: Madalyn Helm D.O.Pediatric Pediatric Integrative MedicinePAGER: [phone] of SERVICE: September 27, 2017TIME of SERVICE: 8:00 am Normal [facility] Vital Signs Date Time Vital Sign Value Performing Clinician Facility 01-25-2024 08:52-0400 Body height 160 cm [facility] Work Phone: [facility] 01-25-2024 08:52-0400 Body mass index (BMI) [Ratio] 31.07 kg/m2 [facility] Work Phone: [facility] 01-25-2024 08:52-0400 Body weight 79.56 kg Henrik [employer] Work Phone: [facility] 01-25-2024 08:52-0400 Diastolic blood pressure 77 mm[Hg] [facility] Work Phone: [facility] 01-25-2024 08:52-0400 Heart rate 60 /min [facility] Work Phone: [facility] 01-25-2024 08:52-0400 SaO2% (BldA) [Mass fraction] 98 % [facility] Work Phone: [facility] 01-25-2024 08:52-0400 Systolic blood pressure 116 mm[Hg] [facility] Work Phone: [facility] 07-20-2023 15:48-0500 Body mass index (BMI) [Ratio] 35.43 kg/m2 Henrik Thomae DO Work Phone: [facility] 07-20-2023 15:48-0500 Body weight 90.72 kg Henrik Thomae DO Work Phone: [facility] 06-19-2023 09:30-0500 Body height 160 cm Henrik Thomae DO Work Phone: [facility] 06-19-2023 09:30-0500 Body mass index (BMI) [Ratio] 35.43 kg/m2 Henrik Thomae DO Work Phone: [facility] 06-19-2023 09:30-0500 Body weight 90.72 kg Henrik Thomae DO Work Phone: [facility] 03-23-2023 11:28-0500 Body height 160.[address] Harry Francis [facility] 03-23-2023 11:27-0500 Body mass index (BMI) [Ratio] 36.7 kg/m2 Dr. Mcdonald [facility] 03-23-2023 11:27-0500 Body weight [address] Harry Francis [facility] 03-23-2023 11:27-0500 Diastolic blood pressure 84 mm[Hg] Dr. Harry Francis [facility] 03-23-2023 11:27-0500 Systolic blood pressure 119 mm[Hg] Dr. Harry Francis [facility] 03-17-2022 11:36-0400 Body height 160.[address] Harry Francis Work Phone: [facility] Work Phone: 03-17-2022 11:36-0400 Body mass index (BMI) [Ratio] 34 kg/m2 Dr. Harry Francis Work Phone: [facility] Work Phone: 03-17-2022 11:36-0400 Body weight 87.[address] Harry Francis Work Phone: [facility] Work Phone: 03-17-2022 11:36-0400 Diastolic blood pressure 87 mm[Hg] Dr. Harry Francis Work Phone: [facility] Work Phone: 03-17-2022 11:36-0400 Systolic blood pressure 137 mm[Hg] Dr. Harry Francis Work Phone: [facility] Work Phone: 02-15-2022 09:35-0400 Body temperature 98 [degF] Dr. Harry Francis Work Phone: [facility] Work Phone: 02-15-2022 09:35-0400 Diastolic blood pressure 86 mm[Hg] Dr. Harry Francis Work Phone: [facility] Work Phone: 02-15-2022 09:35-0400 Heart rate 89 /min Dr. Harry Francis Work Phone: [facility] Work Phone: 02-15-2022 09:35-0400 Respiratory rate 14 /min Dr. Harry Francis Work Phone: [facility] Work Phone: 02-15-2022 09:35-0400 SaO2% (BldA) [Mass fraction] 98 % Dr. Harry Francis Work Phone: [facility] Work Phone: 02-15-2022 09:35-0400 Systolic blood pressure 124 mm[Hg] Dr. Harry Francis Work Phone: [facility] Work Phone: Encounters Encounter Date Encounter Type Care Provider Facility Start: 11-29-2024 End: 11-29-2024 ambulatory Melissa Lassiter [employer] Work Phone: -Ultrasound [facility] Start: 11-29-2024 End: 11-29-[address] Henrik Spencer DO -Ultrasound [facility] Work Phone: Start: 11-29-2024 End: 11-29-2024 ambulatory [facility] Facility:[facility] Start: 11-18-[address] MCKAY Facility:[facility] Start: 04-08-2024 Encounter for gynecological examination (general) (routine) without abnormal findings Oriana Li [facility] Start: 04-08-2024 End: 04-08-2024 ambulatory Oriana Li Facility:[facility] Start: 01-25-2024 End: 01-25-2024 Office outpatient visit 15 minutes Henrik R Thomae DO Work Phone: [facility] Comment on above: Nonalcoholic fatty l iver disease (Primary Dx) Start: 01-25-2024 End: 01-25-2024 ambulatory [facility] Start: 01-19-2024 End: 01-19-2024 ambulatory [facility] Facility:[facility] Start: 01-17-2024 End: 01-17-2024 ambulatory [facility] Facility:[facility] Start: 07-20-2023 End: 07-20-2023 Office outpatient visit 25 minutes Henrik R Thomae DO Work Phone: [facility] Comment on above: Nonalcoholic fatty l iver disease (Primary Dx) Start: 07-20-2023 End: 07-20-2023 ambulatory [facility] Start: 06-19-2023 End: 06-19-2023 Office outpatient new 45 minutes Henrik R Thomae DO Work Phone: [facility] Comment on above: Elevated liver enzym es (Primary Dx) Start: 06-19-2023 End: 06-19-2023 ambulatory [facility] Start: 04-03-2023 End: 04-03-[address] Mcdonald Tito [facility] Work Phone: Start: 04-03-2023 End: 04-03-[address] Harry Francis [facility]-Ultrasound, [facility] Work Phone: Start: 03-29-2023 End: 03-29-[address] Harry Francis [facility] Work Phone: Start: 03-29-2023 End: 03-29-[address] [facility] Start: 03-24-2023 End: 03-24-[address] Harry Francis [facility] Work Phone: Start: 03-24-2023 End: 03-24-[address] [facility] Start: 03-23-2023 End: 03-23-[address] Harry Francis [facility] Work Phone: Start: 10-07-2022 End: 10-07-2022 ambulatory [facility] Work Phone: Start: 10-07-2022 End: 10-07-2022 [facility] Start: 03-17-2022 End: 03-17-[address] Harry Francis Work Phone: [facility] Work Phone: Start: 03-17-2022 End: 03-17-[address] Harry Francis Work Phone: [facility]-Laboratory, Specimen Start: 03-17-[address] Lázaro Francis Work Phone: [facility] Start: 03-17-2022 End: 03-17-[address] Harry Francis Work Phone: [facility] Start: 03-17-2022 End: 03-17-[address] Harry Francis Work Phone: [facility] Start: 02-15-2022 End: 02-15-[address] Harry Francis Work Phone: [facility] Start: 11-29-[address] [facility] Start: 10-02-2021 End: 10-02-2021 Patient encounter procedure [facility] Start: 07-19-2021 End: 07-19-2021 [facility]charged [facility] Start: 09-27-2017 End: 09-29-2017 Ambulatory MADALYN HELM [facility] Procedures Date Procedure Procedure Detail Performing Clinician Start: 11-29-2024 Ultrasound elastogra phy of liver Melissa MIRAMONTES Work Phone: Start: 07-20-2023 Follow-up visit Follow-up HENRIK SPENCER Start: 04-03-2023 Ultrasound elastogra phy of liver Dr. Harry Francis Start: 12-26-2018 Microscopic observat ion [Identifier] in Cervix by Cyto stain Henrik Spencer DO Work Phone: Plan of Treatment Date Care Activity Detail Author Start: 2043 Zoster Vaccines (1 of 2) Zoste r Vaccines (1 of 2) [facility] Start: 01-23-2025 End: 01-23-2025 Patient encounter procedure 01/23/2025 9:15 AM EDT Office Visit [facility] [address] [place] [phone] Henrik Spencer DO [address] [facility] [address] [place] [id number] [facility] Start: 01-25-2024 End: 01-25-2024 Patient encounter procedure 01/25/2024 9:00 AM EDT Office Visit [facility] [address] [place] [phone] Henrik Spencer DO [address] [facility] [address] [place] [id number] [facility] Start: 01-20-2024 End: 07-19-2024 Liver Elastography (Fibroscan) Liver Elastography (Fibroscan) GI Routine Nonalcoholic fatty liver disease Expected: 01/20/2024, Expires: 07/19/2024 [facility] Work Phone: Comment on above: Expected: 01/20/2024 , Expires: 07/19/2024 Start: 01-14-2024 COVID-19 Vaccine () COVID-19 Vaccine () [facility] Start: 01-14-2024 Influenza vaccination Influenza Vacc ine (#1) [facility] Start: 07-20-2023 End: 07-20-2023 Patient encounter procedure 07/20/2023 3:45 PM EST Office Visit [facility] [address] [facility] [address] [place] [phone] Henrik Spencer DO [address] [facility] [address] [place] [address] [facility] Start: 07-20-2023 End: 07-19-2024 Comprehensive metabolic 2000 panel - Serum or Plasma Comprehensive Metabolic Panel Lab Routine Nonalcoholic fatty liver disease Expected: 07/20/2023 (Approximate), Expires: 07/19/2024 [facility] Service Area Work Phone: Comment on above: Expected: 07/20/2023 (Approximate), Expires: 07/19/2024 Start: 06-19-2023 End: 06-19-2024 Alpha-1 Antitrypsin Phenotype Alpha-1 Antitrypsin Phenotype Lab Routine Elevated liver enzymes Expected: 06/19/2023 (Approximate), Expires: 06/19/2024 [facility] Work Phone: Comment on above: Expected: 06/19/2023 (Approximate), Expires: 06/19/2024 Start: 06-19-2023 End: 06-19-2024 Ferritin [Mass/volume] in Serum or Plasma Ferritin Lab Routine Elevated liver enzymes Expected: 06/19/2023 (Approximate), Expires: 06/19/2024 [facility] Work Phone: Comment on above: Expected: 06/19/2023 (Approximate), Expires: 06/19/2024 Start: 06-19-2023 End: 06-19-2024 Iron and Iron binding capacity panel - Serum or Plasma Iron and TIBC Lab Routine Elevated liver enzymes Expected: 06/19/2023 (Approximate), Expires: 06/19/2024 [facility] Work Phone: Comment on above: Expected: 06/19/2023 (Approximate), Expires: 06/19/2024 Start: 06-19-2023 End: 06-19-2024 Mitochondria Ab [Presence] in Serum by Immunofluorescence Anti-Mitochondrial Antibody Lab Routine Elevated liver enzymes Expected: 06/19/2023 (Approximate), Expires: 06/19/2024 [facility] Work Phone: Comment on above: Expected: 06/19/2023 (Approximate), Expires: 06/19/2024 Start: 06-19-2023 End: 06-19-2024 Nuclear Ab [Presence] in Serum by Hep2 substrate MONSE with Reflex to BEATRIZ Lab Routine Elevated liver enzymes Expected: 06/19/2023 (Approximate), Expires: 06/19/2024 [facility] Work Phone: Comment on above: Expected: 06/19/2023 (Approximate), Expires: 06/19/2024 Start: 06-19-2023 End: 06-19-2024 Smooth muscle Ab [Presence] in Serum by Immunofluorescence Anti-Smooth Muscle Antibody Lab Routine Elevated liver enzymes Expected: 06/19/2023 (Approximate), Expires: 06/19/2024 [facility] Service Area Work Phone: Comment on above: Expected: 06/19/2023 (Approximate), Expires: 06/19/2024 Start: 01-13-2023 COVID-19 Vaccine ( season) COVID-19 Vaccine ( season) [facility] Start: 01-13-2023 Influenza vaccination Influenza Vacc ine (#1) [facility] Start: 03-17-2022 Liquid based cervica l cytology screening [facility] Work Phone: Start: 12-26-2021 Screening for malign ant neoplasm of cervix [facility] Start: 2014 Screening for malign ant neoplasm of cervix HPV/Cotest [facility] Start: 2012 Hepatitis A Vaccines (1 of 2 - Risk 2-dose series) Hepatitis A Vaccines (1 of 2 - Risk 2-dose series) [facility] Start: 2012 Hepatitis B Vaccines (1 of 3 - 19+ 3-dose series) Hepatitis B Vaccines (1 of 3 - 19+ 3-dose series) [facility] Start: 2011 [facility]atitis C [facility] Start: 2006 Varicella vaccination Varicell a Vaccines (1 of 2 - 13+ 2-dose series) [facility] Start: 2004 DTaP/Tdap/Td Vaccine s (6 - Tdap) DTaP/Tdap/Td Vaccines (6 - Tdap) [facility] Start: 09-29-1998 Varicella vaccination Varicell a Vaccines (1 of 2 - 2-dose childhood series) [facility] Start: 1993 Hepatitis B Vaccines (1 of 3 - 3-dose series) Hepatitis B Vaccines (1 of 3 - 3-dose series) [facility] Start: 1993 HIV screening HIV Screening [facility] Start: 1993 Lipid panel Lipid Panel [facility] Start: 1993 Yearly Adult Physical Yearly Adult P hysical [facility] Ceruloplasmin [Mass/ volume] in Serum or Plasma [facility] Copper [Moles/volume ] in Serum or Plasma [facility] Hepatitis A virus Ig M Ab [Presence] in Serum [facility] Hepatitis B core ant ibody measurement, IgM type [facility] Hepatitis B surface antigen measurement [facility] Hepatitis C antibody measurement [facility] Path report.final Dx Spec [facility] Work Phone: Payers Date Payer Category Payer Self-pay [id number] 2023 Self-pay [id number] 2022 Unknown [id number] 2015 Unknown [id number] 1995 Unknown [id number] 2.16.8 [id number] 1993 Unknown [id number] 2.16.8 [id number] 1993 Unknown [id number] 2.16.8 [id number] Unknown [id number] 2.16.8 [id number] Unknown [id number] 2.16.8 [id number] Unknown [id number] 2.16.8 [id number] Unknown [id number] 2.16.8 [id number] Unknown [id number] 2.16.8 [id number] Social History Date Type Detail Facility Start: 02-27-2020 End: 02-27-2020 Tobacco smoking status NHIS Unknown if ever smoked [facility] Start: 1995 Sex Assigned At Female [facility] Start: 06-19-2023 Tobacco smoking stat us WIIS Never smoked tobacco [facility] Work Phone: Start: 06-19-2023 Tobacco use and exposure Smokeless tobacco non-user [facility] Work Phone: Start: 06-19-2023 End: 01-25-2024 Alcohol intake Lifetime non-drinker (finding) [facility] Work Phone: Start: 1995 [facility] Start: 06-19-2023 End: 01-25-2024 Gender identity Not on file [facility] Work Phone: Start: 06-09-2023 End: 01-25-2024 Exposure to SARS-CoV-2 (event) Not sure [facility] Start: 06-19-2023 End: 01-25-2024 History of Social function [facility] Work Phone: Goals Date Patient Goal Desired Activity /State Clinical Notes 03-17-2022 to 11-29-2024 Henrik Spencer, DO - 01/25/2024 9:00 AM EDTHenrik Spencer, DO - 07/20/2023 3:45 PM ESTHenrik Spencer DO - 06/19/2023 9:15 AM EST Note Date & Type Note Facility 11-29-2024 Radiology Diagnostic study note [facility] Imaging Services [address] [place], [place] [id number] ABD Limited w/ Elastography MR#: [id number] Acct: [id number] Name: MELISSA MARRUFO Rep #: [id number] : 1995 F 29 From: Mario White MD PCP: FE Davidson Status: REG CLI Study:ABD Limited w/ Elastography Date of Exa m: 11/29/24 Exam# [id number] Ordering Dr: Caleb Spencer DO PROCEDURE: ABD LIMITED W/ ELASTOGRAPHY REASON FOR EXAM: FATTY LIVER COMPARISON: Prior study dated January 19, 2024. TECHNIQUE: Right upper quadrant abdominal ultrasound. Michael ElastQ Imaging shear wave elastography for non-invasive assessment of liver tissue stiffness. ETHERA EPIQ Elite. FINDINGS: LIVER: Size: Unremarkable Length: 15.5 cm Echotexture: Diffusely echogenic suggesting fatty infiltration Contour: Normal Lesions: None identified Elastography: EQI Med: 9.5 kPa EQI Med Demetrio: 1.77 m/s IQR/Med: 20.5 %* GALLBLADDER: No stones sludge wall thickening or tenderness. COMMON BILE DUCT: Normal measuring 2.2 mm . PANCREAS: Normal Visualized portions of the right kidney are unremarkable. No right upper quadrant ascites. US/ABD Limited w/ Elastography IMPRESSION: Moderate hepatic fibrosis Diffuse fatty infiltration of the liver. Reference Values: SRU <1.37 m/s (5.7kPa): No to mild fibrosis 1.37 m/s - 2.2 m/s: Moderate to severe fibrosis >2.2 m/s (15kPa): Significant fibrosis / cirrhosis METAVIR Score F2 or higher: 1.34 m/s (5.7kPa) F3 or higher: 1.55 m/s (7.3kPa) F4: 1.80 m/s (10kPa) * If the IQR/Med is >30%, the variance in the measurements is a large and the accuracy of the measurement may be in question. Reading Location: [place] [address] CC: FE Lassiter; Dr. Henrik Spencer DO ~ [employer] Laboratory Director: Signed [facility] 01-25-2024 History of Present illness Narrative Subjective Patient ID: Melissa Marrufo is a 28 y.o. female who presents for Follow-up (Patient in office for 6 month follow up; ultrasound results in mailbox this morning for review. No concerns at this time. ). BAKARI Velasquez is seen today in follow-up for nonalcoholic [...] 01/25/24 1:18 PM documented in this encounter [facility] Work Phone: 07-20-2023 History of Present illness Narrative Subjective Patient ID: Melissa Marrufo is a 28 y.o. female who presents for Follow-up (Patient was having some elevated liver enzymes, had labs completed for today at [facility]. ). HPI Melissa is seen today in follow-up. Transaminases have stabilized this lab work for treatable liver disease have returned negative. Her FibroScan done in [facility] did show mild steatohepatitis. I advise she [...] 07/20/23 5:19 PM documented in this encounter [facility] Work Phone: 06-19-2023 History of Present illness Narrative Subjective Patient ID: Melissa Marrufo is a 28 y.o. female who presents for New Patient Visit (Pt seen today for elevated liver enzymes blood work at [facility]. Patient denies any GI complaints at this [...] would recommend liver biopsy and referral to chief radiologic technologist. Henrik Spencer DO 06/19/23 9:35 AM documented in this encounter [facility] Work Phone: 03-17-2022 Note [facility] Work Phone: Pap Smear Specimen Adequacy March 17, 2022 12:37pm Comment . Satisfactory for evaluation. Endocervical and/or squamous metaplasticcells (endocervical component) are present. Comment on above: Satisfactory for lexy luation. Endocervical and/or squamous metaplasticcells (endocervical component) are present. Evaluation note No assessment information availa ble [facility] Work Phone: Evaluation note Diagnosis Onset Date Acute upper respiratory infection acute Contact with or suspected ex posure to other viral communicable disease acute [id number] acute [facility] Work Phone: Evaluation note* Diagnosis Onset Date Resolution Status BMI 36.0-36.9,adult acute Other obesity acute Encounter for routine gynecological examination noneactive [facility] Work Phone: Evaluation note* Diagnosis Elevated liver enzymes- Primary Other nonspecific abnormal serum enzyme levels documented in this encounter [facility] Work Phone: Evaluation note* Diagnosis Nonalcoholic fatty liver disease- Primary documented in this encounter [facility] Work Phone: Evaluation note* Diagnosis Nonalcoholic fatty liver disease- Primary documented in this encounter [facility] Work Phone: Reason for referral (narrative)No reason for referral information [facility] Work Phone: Summary Purpose Family History No Family History Records Found Relationship Condition Age at Onset Recorded Date/T christie Not Specified Diabetes mellitus Unknown Anxiety Unknown Myocardial infarction Unknown Hypertension Unknown Advance Directives No Advanced Directives Records Found Advance Directive Response Recorded Date/ Time Living Will No April 08 10:26am [employer] Laboratory Director No April 08, 2017 10:26am Advance Directive Response Recorded Date/ Time Living Will No April 08 9:26am [employer] Laboratory Director No April 08, 2017 9:26am Chief Complaint and Reason for Visit Chief Complaint LATERAL EPICONDYLITI S. PT HAS RX SKIN Chief Complaint L LATERAL EPICONDYLI TIS. 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) Reason for Visit Acute upper respirat ory infection Contact with or suspected exposure to other viral communicable disease [id number] Chief Complaint Annual (OFFICE ASSOCIATE) E ORDERS Reason for Visit BMI 36.0-36.9,adult Other obesity Encounter for routine gynecological examination Chief Complaint Annual (OFFICE ASSOCIATE) E ORDERS INT LABS Reason for Visit BMI 36.0-36.9,adult Other obesity Encounter for routine gynecological examination Chief Complaint Annual (OFFICE ASSOCIATE) E ORDERS INT LABS Abnormal levels of other serum enzymes Reason for Visit BMI 36.0-36.9,adult Other obesity Encounter for routine gynecological examination Chief Complaint Admit Date FATTY LIVER November 29, 2024 7:11 am Reason for Referral Specialty Diagnoses / Procedures Referred By Mitchell li Referred To Contact Gastroenterology Diagnoses Nonalcoholic fatty liver disease Procedures Liver Elastography (Fibroscan) Henrik Spencer, DO [address] [facility], [facility] [address] [place] [address] Referral ID Status Reason Start Date Expiration Date V isits Requested Visits Authorized [id number] Pending Review 07/20/2023 07/19/2024 1 1 Additional Source Comments INFORMATION SOURCE (unrecogn ized section and content) DATE CREATED AUTHOR 11/01/[address] [facility] DATE CREATED AUTHOR AUTHOR'S ORGANIZ ATION 01/29/2024 [facility] DATE CREATED AUTHOR AUTHOR'S ORGANIZ ATION 12/07/2024 [facility] Teams (unrecognized sec tion and [...] Active FE Davidson Primary Care Provider Active Engineering Faculty Relationship Specialty Start Date End Date Melissa Lassiter APRN-ANTONI [address] [id number] PCP - General Family Medicine 04/14/23 Engineering Faculty Relationship Specialty Start Date End Date Melissa Lassiter APRNSHWETHA [address] [id number] PCP - General Family Medicine 04/14/23 Engineering Faculty Relationship Specialty Start Date End Date Melissa Lassiter APRNSanjuanaLOCATOR SPECIALIST [address] [id number] PCP - General Family Medicine 04/14/23 Henrik Spencer DO [address] [facility], [place] [address] PCP - MMO ACO PCP 07/14/23 Team Status: Active Member Role/Relationship Status Dates FE Davidson Primary Care Provider Active Team Status: Inactive Member Role/Relationship Status Dates FE Davidson Primary Care Provider Active Start: November 29, 2024 End: November 29, 2024 Dr. Henrik Spencer DO Attending Provider Active S tart: November 29, 2024 End: November 29, 2024 Dr. Henrik Spencer DO Referring Provider Active S tart: November 29, 2024 End: November 29, 2024 Reason for Visit (unrecogniz ed section and content) Reason Comments New Patient Visit Pt seen today for el evated liver enzymes blood work at [facility]. Patient denies any GI complaints at this time. Reason Comments Follow-up Patient was having s ome elevated liver enzymes, had labs completed for today at [facility]. Reason Comments Follow-up Patient in office [...] BE BASED ON THE PRIMARY CLINICAL RECORDS. [facility], [facility]. provides no warranty or guarantee of the accuracy or completeness of information in this document.
[2025-01-01 07:47] LABS: AST(SGOT) 18 U/L (<=31); Alanine Aminotransfer ALT/SGPT 11 U/L (<=34); Albumin, Serum 4.8 g/dL (3.5-5.0); Alkaline Phosphatase 47 U/L (35-104); Anion Gap 13 (5-15); BUN 13 mg/dL (4-19); BUN/Creat Ratio 17.3 RATIO (10-20); Calcium,Total 9.7 mg/dL (7.6-11.0); Carbon Dioxide 23.2 mmol/L (21.0-32.0); Chloride 104 mmol/L (98-108); Globulin 2.9 g/dL (2.2-4.2); Glucose 98 mg/dL (70-99); Potassium 4.0 mmol/L (3.3-5.1)
== END | disposition home or self-care (01) ==
LOC: LAB 06:05
PROVIDERS: Dermatology; PCP Nurse Practitioner Family
DX: R74.8 Abnormal levels of other serum enzymes (principal); K76.0 Fatty (change of) liver, not elsewhere classified; Z79.899 Other long term (current) drug therapy
CPT/HCPCS: 36415; 80053

== ENCOUNTER → 2025-04-14 | Outpatient (CLI) | payer OTHER, SELFPAY ==
[2025-04-16 15:08] LABS: HPV APTIMA, High Risk Negative (Negative)
== END | disposition home or self-care (01) ==
LOC: LABSPEC 11:47
PROVIDERS: PCP Nurse Practitioner Family; Visit Provider Obstetrics & Gynecology
DX: Z12.4 Encounter for screening for malignant neoplasm of cervix (principal)
CPT/HCPCS: 87624; 88175; G0145

== ENCOUNTER → 2025-05-02 | Outpatient (CLI) | payer OTHER, SELFPAY ==
--- OUTSIDE RECORDS SUMMARY | 2025-05-02 06:16 | XMS RPT_ITS | CCD ---
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 Harry Francis Primary Care Provider Dr. Harry Francis Referring Provider [phone] ASHLEIGH Pink Attending Provider Dr. Oriana Li Attending Provider Dr. Harry Francis Referring Provider Unavailable Dr. Oriana Li Attending Provider [phone] Maikol BENEFIT DIRECTOR-NETWORK INTERN, [place] Primary Care Provider Henrik Spencer DO R Unavailable Maikol RETAIL SALESMAN-C, [place] Primary Care Provider Dr. Henrik Spencer DO Attending Provider Dr. Henrik Spencer DO Referring Provider [phone] HENRIK REYNOSO Attending Provider [phone] HENRIK REYNOSO Referring Provider Allan NEWSOME, Dr. Gregory Other Provider [phone] Thomae, Henrik Referring Unavailable Maikol, Melissa Primary Care Unavailable Thomae, Henrik Attending Unavailable Henrik Spencer Attending Unavailable Thomae, Henrik Referring Unavailable Maikol, Melissa Primary Care Unavailable Thomae, Henrik Referring Unavailable Maikol, Melissa Primary Care Unavailable ThomaeManuele Attending Unavailable Oriana Li Attending Unavailable Maikol, Melissa Primary Care Unavailable Maikol, Melissa Referring Unavailable Colt Lemus Consulting Unavailable JUNE, CARROLL Attending Unavailable JUNE, CARROLL Referring Unavailable Maikol, Melissa Primary Care Unavailable Maikol BENEFIT DIRECTOR-NETWORK INTERN, [place] Primary Care Provider Henrik Spencer DO Unavailable HERNIK SPENCER Attending Unavailable MELISSA ISIDRO Primary Care Unavailable Allergies Allergy Classification Reported Allergen(s) Allergy Type Date of Onset Reaction(s) Facility (16 sources) carBAMazepine; Translations: [CARBAMAZEPINE] Drug Allergy 09-27-2017 Anaphylaxis [facility] Repository (1 source) DULoxetine; Translations: [DULOXETINE] Drug Allergy 09-27-2017 AOF [facility] Repository Medications Current Medications Medication Drug Class(es) Dates Sig (Normalized) Sig (Original) NON FORMULARY (4 sources) NON FORMULARY Re new Care Probiotic 30billion Active NON FORMULARY Re new Care Probiotic 30billion 0 Active spironolactone 100 mg oral tablet (20 sources) Aldosterone Antagonist Start: 12-10-2024 take 1 tablet by mouth every twelve hours spironolactone (Aldactone) 100 mg tablet Take 1 tablet (100 mg) by mouth every 12 hours. 12/10/2024 Active Start: 06-25-2018 End: 03-23-2023 take 1 tablet by mouth twice daily Spironolactone (Aldactone) 50 mg tablet Discontinued 50 mg PO TWICE A DAY 180 90 4 March 17, 2022 11:40am March 23, 2023 12:51pm zinc gluconate 50 mg oral ta blet (4 sources) zinc gluconate 5 0 mg tablet Take by mouth once daily. Active Completed/Discontinued Medications Medication Drug Class(es) Dates Sig (Normalized) Sig (Original) amitriptyline hydrochloride 10 mg oral tablet (9 sources) Tricyclic Antidepressant Start: 05-17-2017 End: 06-05-2017 take 1 tablet by mouth once Amitriptyline 10 mg tablet Discontinued 10 mg PO ONCE May 17, 2017 1:00am June 05, 2017 5:17pm amoxicillin 875 mg oral tablet (9 sources) Penicillin-class Antibacterial Start: 06-30-2018 End: 12-26-2018 take 1 tablet by mouth twice daily Amoxicillin 875 mg tablet Discontinued 875 mg PO TWICE A DAY 20 0 June 30, 2018 1:00am December 26, 2018 9:42am amoxicillin 875 mg / clavulanate 125 mg oral tablet (9 sources) Penicillin-class Antibacterial Start: 06-05-2017 End: 06-15-2017 Amoxicillin-Pot Clavulanate (Augmentin) 875-125 mg tablet Discontinued 1 {tbl} PO Q12H 20 10 0 June 05, 2017 1:00am June 14, 2017 1:00am June 15, 2017 1:06am Acute sinusitis, unspecified Antioxidiant Lotion (9 sources) Start: 04-08-2017 End: 06-25-2018 Antioxidiant Lotion [...] 12:00am June 25, 2018 1:55pm Benzoyl Peroxide (9 sources) Start: 04-08-2017 End: 06-25-2018 take 2 [...] carBAMazepine 200 mg extended release oral capsule (9 sources) Mood Stabilizer Start: 04-08-2017 End: 06-05-2017 take 1 capsule by mouth twice daily Carbamazepine 200 MG capsule, ER multiphase 12 hr Discontinued 200 mg PO TWICE A DAY April 08, 2017 1:00am June 05, 2017 5:16pm Norgestimate-Ethinyl Estradiol (20 sources) Progestin, Estrogen Start: 03-23-2023 End: 04-08-2024 Norgestimate-Ethiny l Estradiol (Sprintec (28)) 0.25-35 mg-mcg tablet Discontinued 1 {tbl} PO daily 84 4 March 23, 2023 12:50pm April 08, 2024 11:11am Other obesity Other obesity Start: 03-23-2023 take 1 tablet by qamar th once daily Norgestimate-Ethinyl Estradiol (Sprintec (28)) 0.25-35 mg-mcg tablet Active 1 TABLET PO daily 84 March 23, 2023 11:50am Start: 03-17-2022 End: [...] mg-mcg tablet Discontinued 1 TABLET PO daily February 27, 2020 10:38am March 08, 2021 12:17pm Start: 02-27-2020 End: 03-08-2021 take 1 tablet by mouth once daily Norgestimate-Ethinyl Estradiol (Sprintec (28)) 0.25-35 mg-mcg tablet Discontinued 1 TABLET PO daily February 27, 2020 11:38am March 08, 2021 [...] tablet Discontinued 1 {tbl} PO daily 84 June 27, 2018 1:00am [...] propionate 0.05 mg/actuat metered dose nasal spray (9 sources) Corticosteroid Start: 06-30-2018 End: 12-26-2018 take [...] each nostril gabapentin 100 mg oral capsule (9 sources) Anti-epileptic Agent Start: 06-05-2017 End: 06-25-2018 take 1 capsule by mouth once daily Gabapentin 100 mg capsule Discontinued 100 mg PO daily June 05, 2017 1:00am June 25, 2018 2:55pm Green Tea Cleanser (9 sources) Start: 04-08-2017 End: 06-25-2018 Green Tea [...] 2018 1:55pm ivermectin 10 mg/ml topical cream (9 sources) Antiparasitic, Pediculicide Start: 04-08-2017 End: 06-05-2017 Ivermectin 30 GM cream Discontinued 1 NMA TP DAILY April 08, 2017 1:00am June 05, 2017 5:17pm Start: 04-08-2017 End: 06-05-2017 Ivermectin Discontinued 1 AP PLIC TP DAILY April 08, 2017 12:00am June 05, 2017 4:17pm Promised Cream (9 sources) Start: 04-08-2017 End: 06-05-2017 Promised Cream [...] 08, 2017 12:00am June 05, 2017 4:17pm Problems Active Problems Problem Classification Problem Date Documented Date Episodic/Chronic Headache; including migraine (9 sources) Cervicogenic headache; Translations: [Cervicogenic headache] 05-23-2017 Episodic Hepatitis (2 sources) Nonalcoholic steatohepatitis; Translations: [Nonalcoholic steatohepatitis (MORRELL)] Onset: 07-20-2023 01-23-2025 Chronic Immunizations and screening for infectious disease (10 sources) Contact with and (suspected) exposure to other viral communicable diseases; Translations: [Contact with or suspected exposure to other viral communicable disease] Episodic Other bone disease and musculoskeletal deformities (18 sources) Segmental and somatic dysfunction; Translations: [Segmental and somatic dysfunction of cervical region] 05-17-2017 Episodic Other endocrine disorders (9 sources) Polycystic ovary; Translations: [Polycystic ovarian syndrome] 03-08-2021 Chronic Comment on above: sprintec, weight los s, aldactone Other female genital disorders (9 sources) Abnormal uterine bleeding; Translations: [Abnormal uterine and vaginal bleeding, unspecified] 03-08-2021 Chronic Comment on above: irregular Other liver diseases (5 sources) Fatty (change of) liver, not elsewhere classified; Translations: [Other chronic nonalcoholic liver disease] Onset: 07-20-2023 07-20-2023 Chronic Other liver diseases (1 source) Abnormal levels of other serum enzymes; Translations: [Abnormal levels of other serum enzymes] Onset: 01-07-2025 Episodic Other nervous system disorders (1 source) Trigeminal neuralgia; Translations: [Trigeminal neuralgia] Onset: 09-27-2017 Episodic Other nutritional; endocrine; and metabolic disorders (5 sources) Obesity; Translations: [Other obesity] 03-23-2023 Chronic Comment on above: prelim discussion, h as had success with WW in the past. ordered labs, needs intake assessment questionnaire. Other nutritional; endocrine; and metabolic disorders (5 sources) Body mass index 30+ - obesity; Translations: [Body mass index (BMI) 36.0-36.9, adult] 03-23-2023 Chronic Other nutritional; endocrine; and metabolic disorders (3 sources) Body mass index (BMI) 36.0-36.9, adult; Translations: [Body Mass Index 36.0-36.9, adult] 03-23-2023 Chronic Other nutritional; endocrine; and metabolic disorders (3 sources) Other obesity; Translations: [Obesity, unspecified] 03-23-2023 Chronic Other skin disorders (9 sources) Acne; Translations: [Acne, unspecified] 06-25-2018 Episodic Other upper respiratory infections (19 sources) Acute sinusitis; Translations: [Acute sinusitis, unspecified] Episodic Past or Other Problems Problem Classification Problem Date Documented Da te Episodic/Chronic Other liver diseases (9 sources) Elevated liver enzymes level; Translations: [Abnormal levels of other serum enzymes] Onset: 06-19-2023 03-28-2023 Episodic Comment on above: lab evaluation and R UQ ordered, PCP referral. recommended stopping aldactone until evaluation complete Results Test Name Value Interpretation Reference Range Facility Anion gap in Serum or Plasma Ordered By: Colt Lemus on 01-01-2025 Anion gap [Moles/Vol] 13 mmol/L 09-26 [facility] BUN/creatinine ratioOrdered By: Colt Lemus on 01-01-2025 Urea nitrogen/Creatinine [Mass ratio] 17.3 mg/mg 03-03 [facility] Bilirubin, totalOrdered By: Colt Lemus on 01-01-2025 Bilirubin [Mass/Vol] 0.93 mg/dL 0.00-1.30 [facility] Carbon dioxide, total [Moles /volume] in Central venous bloodOrdered By: Colt Lemus on 01-01-2025 CO2 [Moles/Vol] 23.2 mmol/L 21.0-32.0 [facility] Chloride assayOrdered By: Hi Lemus on 01-01-2025 Chloride [Moles/Vol] 104 mmol/L 98-108 [facility] Comprehensive Metabolic Prof ilon 01-01-2025 Albumin [Mass/Vol] 4.8 g/dL Normal 3.5-5.0 [facility] Comment on above: Order Comment: SEND K TO NO FAX ON ORDER FOR INTO-SW Performed By: #### L [id number] #### [facility] Laboratory [address] [place], [address] Albumin/Globulin [Mass ratio] 1.7 {ratio} Normal 0.9-2.4 [facility] Comment on above: Order Comment: SEND K TO NO FAX ON ORDER FOR INTO-ALFONSO Performed By: #### L [id number] #### [facility] Laboratory [address] [place], [address] ALK PHOS 47 U/L Normal 35-104 [facility] Comment on above: Order Comment: SEND K TO NO FAX ON ORDER FOR INTO-SW Performed By: #### L [id number] #### [facility] Laboratory [address] [place], [address] ALT [Catalytic activity/Vol] 11 U/L Normal <=34 [facility] Comment on above: Order Comment: SEND K TO NO FAX ON ORDER FOR INTOSanjuanaSW Performed By: #### L [id number] #### [facility] [address] [place], [address] AST [Catalytic activity/Vol] 18 U/L Normal <=31 [facility] Comment on above: Order Comment: SEND K TO NO FAX ON ORDER FOR INTO-SW Performed By: #### L [id number] #### [facility] [address] [place], [address] Bilirubin [Mass/Vol] 0.93 mg/dL Normal 0.00-1.30 [facility] Comment on above: Order Comment: SEND K TO NO FAX ON ORDER FOR INTO-ALFONSO Performed By: #### L [id number] #### [facility] [address] [place], [address] BUN/CRE 17.3 RATIO Normal 10-20 [facility] Comment on above: Order Comment: SEND K TO NO FAX ON ORDER FOR INTO-SW Performed By: #### L [id number] #### [facility] [address] [place], [address] Calcium [Mass/Vol] 9.7 mg/dL Normal 7.6-11.0 [facility] Comment on above: Order Comment: SEND K TO NO FAX ON ORDER FOR INTO-ALFONSO Performed By: #### L [id number] #### [facility] [address] [place], [address] Chloride [Moles/Vol] 104 mmol/L Normal 98-108 [facility] Comment on above: Order Comment: SEND K TO NO FAX ON ORDER FOR INTO-SW Performed By: #### L [id number] #### [facility] [address] [place], [address] CO2 [Moles/Vol] 23.2 mmol/L Normal 21.0-32.0 [facility] Comment on above: Order Comment: SEND K TO NO FAX ON ORDER FOR INTOSanjuanaSW Performed By: #### L [id number] #### [facility] [address] [place], [address] Creatinine [Mass/Vol] 0.76 mg/dL Normal 0.70-1.20 [facility] Comment on above: Order Comment: SEND K TO NO FAX ON ORDER FOR INTO-SW Performed By: #### L [id number] #### [facility] [address] [place], [address] GAP 13 Normal 5-15 [facility] Comment on above: Order Comment: SEND K TO NO FAX ON ORDER FOR INTOLUC Performed By: #### L [id number] #### [facility] [address] [place], [address] GFR/1.73 sq M.predicted among non-blacks MDRD (S/P/Bld) [Vol rate/Area] 108 mL/min/{1.73_m2} Normal >60 [facility] Comment on above: Order Comment: SEND K TO NO FAX ON ORDER FOR INTOSanjuanaSW Result Comment: mL/m in/1.73m2 CKD-EPI Creatinine Equation (2020) Performed By: #### L [id number] #### [facility] [address] [place], [address] Globulin (S) [Mass/Vol] 2.9 g/dL Normal 2.2-4.2 [facility] Comment on above: Order Comment: SEND K TO NO FAX ON ORDER FOR INTOSanjuanaSW Performed By: #### L [id number] #### [facility] [address] [place], [address] Glucose [Mass/Vol] 98 mg/dL Normal 70-99 [facility] Comment on above: Order Comment: SEND K TO NO FAX ON ORDER FOR INTOLUC Performed By: #### L [id number] #### [facility] [address] [place], [address] Potassium [Moles/Vol] 4.0 mmol/L Normal 3.3-5.1 [facility] Comment on above: Order Comment: SEND K TO NO FAX ON ORDER FOR DR.THOMAE-LOOKING KUMAR Performed By: #### L [id number] #### [facility] [address] [place], [address] Sodium [Moles/Vol] 140 mmol/L Normal 133-145 [facility] Comment on above: Order Comment: SEND K TO NO FAX ON ORDER FOR DR.THOMAE-LOOKING KUMAR Performed By: #### L [id number] #### [facility] [address] [place], [address] T PROT 7.7 g/dL Normal 5.9-8.4 [facility] Comment on above: Order Comment: SEND K TO NO FAX ON ORDER FOR DR.THOMAE-LOOKING KUMAR Performed By: #### L [id number] #### [facility] [address] [place], [address] Urea nitrogen [Mass/Vol] 13 mg/dL Normal 4-19 [facility] Comment on above: Order Comment: SEND K TO NO FAX ON ORDER FOR DR.THOMAE-LOOKING KUMAR Performed By: #### L [id number] #### [facility] [address] [place], [address] Glomerular filtration rate ( GFR) estimation/1.73 sq m using serum, plasma, or whole bOrdered By: Colt Lemus on 01-01-2025 GFR/1.73 sq M.predicted among non-blacks MDRD (S/P/Bld) [Vol rate/Area] 108 mL/min/{1.73_m2} >60 [facility] Comment on above: mL/min/1.73m2 CKD-EP I Creatinine Equation (2020) Laboratory - Chemistry and C hemistry - challengeOrdered By: Colt Lemus on 01-01-2025 AST [Catalytic activity/Vol] 18 U/L <32 [facility] Potassium measurement (mass/ volume)Ordered By: Colt Lemus on 01-01-2025 Potassium (Unsp spec) [Mass/Vol] 4.0 mmol/L 3.3-5.1 [facility] Serum creatinine measurement (mass/volume)Ordered By: Colt Lemus on 01-01-2025 Creatinine [Mass/Vol] 0.76 mg/dL 0.70-1.20 [facility] Serum globulin measurementOr dered By: Colt Lemus on 01-01-2025 Globulin (S) [Mass/Vol] 2.9 g/dL 2.2-4.2 [facility] Serum glucose measurement (m ass/volume)Ordered By: Colt Lemus on 01-01-2025 Glucose [Mass/Vol] 98 mg/dL 70-99 [facility] Serum or plasma alanine guerrero otransferase (ALT) measurementOrdered By: Colt Lemus on 01-01-2025 ALT [Catalytic activity/Vol] 11 U/L <35 [facility] Serum or plasma albumin cherise urement (mass/volume)Ordered By: Colt Lemus on 01-01-2025 Albumin [Mass/Vol] 4.8 g/dL 3.5-5.0 [facility] Serum or plasma albumin/glob ulin mass ratioOrdered By: Colt Lemus on 01-01-2025 Albumin/Globulin [Mass ratio] 1.7 {ratio} 0.9-2.4 [facility] Serum or plasma alkaline sathya sphatase measurementOrdered By: Colt Lemus on 01-01-2025 ALP [Catalytic activity/Vol] 47 U/L 35-104 [facility] Serum or plasma calcium cherise urement (mass/volume)Ordered By: Colt Lemus on 01-01-2025 Calcium [Mass/Vol] 9.7 mg/dL 7.6-11.0 [facility] Serum or plasma urea nitroge n measurement (mass/volume)Ordered By: Colt Lemus on 01-01-2025 Urea nitrogen [Mass/Vol] 13 mg/dL 4-19 [facility] Sodium levelOrdered By: Darnell Lemus on 01-01-2025 Sodium [Moles/Vol] 140 mmol/L 133-145 [facility] Total proteinOrdered By: Faisal Lemus on 01-01-2025 Protein [Mass/Vol] 7.7 g/dL 5.9-8.4 [facility] ABD Limited w/ Elastographyo n 11-29-2024 ABD Limited w/ Elastography [facility] Services [address] [place] [address] ABD Limited w/ Elastography MR#: [id number] Acct: [id number] Name: MELISSA MARRUFO Rep #: [id number] : 1995 F 29 From: Quique euceda MD PCP: FE Davidson Status: REG CLI Study: ABD Limited w/ Elastography Date of Exam: 11/12 01/06 Exam# [id number] Ordering Dr: Henrik Spencer DO PROCEDURE: ABD [...] measurement may be in question. Reading Location: [place] [address] CC: FE Isidro; Dr. Henrik Spencer DO Meal Grinder Tender: Signed Normal [facility] Branch Service Representative Office Visit Reporton 04-08-2024 Branch Service Representative Office Visit Report [facility] [address], [address] [place] [address] OFFICE VISIT Date of Service: 04/08/24 MR#: [id number] Acct: [id number] Name: MELISSA MARRUFO Rep #: [id number] : 1995 Provider: Dr. 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 Patient seeing [...] acute distress, well developed and well groomed [facility] Head: normal to inspection and normocephalic Ears: [...] cervical discharge (more content not included)... Normal [facility] ABD Limited w/ Elastographyo n 01-19-2024 ABD Limited w/ Elastography [facility] Imaging Services [address] [place], [place] [address] ABD Limited w/ Elastography MR#: [id number] Acct: [id number] Name: MELISSA MARRUFO Rep #: [id number] : 1995 F 28 From: Quique euceda MD PCP: Melissa Isidro RETAIL SALESMAN-C Status: REG CLI Study: ABD Limited w/ Elastography Date of Exam: 11/05 Exam# [id number] Ordering Dr: Henrik Spencer DO [id number] STUDY: ABDOMINAL ULTRASOUND - RIGHT UPPER QUADRANT; ELASTOGRAPHY REASON FOR VISIT: Female, 28 years old. Fatty infiltration of the liver. TECHNIQUE: Ultrasound evaluation of the right upper quadrant was performed with real-time and static valentin-scale imaging. Point quantification shear wave elastography was performed (Braclet). TECHNICAL QUALITY: Adequate. COMPARISON: Comparison is made [...] MD at 9:11 EDT , CC: FE Isidro; Dr. Henrik Specner DO Meal Grinder Tender: Signed Normal [facility] Bilirubin, Directon 01-17-20 24 Bilirubin.direct [Mass/Vol] 0.20 mg/dL Normal 0.00-0.30 [facility] Comment on above: Performed By: #### L 501.6850, L500.4050 #### [facility] Laboratory [address] [place], [address] Comprehensive Metabolic Prof ilon 01-17-2024 Albumin [Mass/Vol] 4.4 g/dL Normal 3.2-5.0 [facility] Comment on above: Performed By: #### L 501.4700, L500.4050 #### [facility] Laboratory [address] [place], [address] Albumin/Globulin [Mass ratio] 1.2 {ratio} Normal 0.9-2.4 [facility] Comment on above: Performed By: #### L 501.4700, L500.4050 #### [facility] Laboratory [address] [place], [address] ALK P 63 U/L Normal 45-117 [facility] Comment on above: Performed By: #### L 501.4700, L500.4050 #### [facility] Laboratory [address] [place], [address] ALT [Catalytic activity/Vol] 16 U/L Normal 13-56 [facility] Comment on above: Performed By: #### L 501.4700, L500.4050 #### [facility] [address] [place], [address] AST [Catalytic activity/Vol] 12 U/L Low 15-37 [facility] Comment on above: Performed By: #### L 501.4700, L500.4050 #### [facility] Laboratory [address] [place], [address] Bilirubin [Mass/Vol] 0.60 mg/dL Normal 0.20-1.00 [facility] Comment on above: Result Comment: For patients on eltrombopag therapy, use of Dimension Birdseye TBIL is not recommended. Performed By: #### L 501.4700, L500.4050 #### [facility] [address] [place], [address] BUN/CRE 15.1 RATIO Normal 10-20 [facility] Comment on above: Performed By: #### L 501.4700, L500.4050 #### [facility] [address] [place], [address] CA,Total 9.8 mg/dL Normal 8.5-10.1 [facility] Comment on above: Performed By: #### L 501.4700, L500.4050 #### [facility] Laboratory [address] [place], [address] Chloride [Moles/Vol] 107 mmol/L Normal 98-107 [facility] Comment on above: Performed By: #### L 501.4700, L500.4050 #### [facility] [address] [place], [address] CO2 [Moles/Vol] 25.0 mmol/L Normal 21.0-32.0 [facility] Comment on above: Performed By: #### L 501.4700, L500.4050 #### [facility] [address] [place], [address] Creatinine [Mass/Vol] 0.73 mg/dL Normal 0.55-1.02 [facility] Comment on above: Result Comment: The validity of the calculated GFR GFRAA in patients over 70 years has not been determined. Clinical correlation is essential. Performed By: #### L 501.4700, L500.4050 #### [facility] [address] [place], [address] EST GFR - AA 120 mL/min Normal >60 [facility] Comment on above: Result Comment: Afri can Swazi GFR Calc Performed By: #### L 501.4700, L500.4050 #### [facility] [address] [place], [address] GAP 7 Normal 5-15 [facility] Comment on above: Performed By: #### L 501.4700, L500.4050 #### [facility] [address] [place], [address] GFR/1.73 sq M.predicted among non-blacks MDRD (S/P/Bld) [Vol rate/Area] 99 mL/min/{1.73_m2} Normal >60 [facility] Comment on above: Result Comment: Non- GFR Calc Performed By: #### L 501.4700, L500.4050 #### [facility] [address] [place], [address] Globulin (S) [Mass/Vol] 3.7 g/dL Normal 2.2-4.2 [facility] Comment on above: Performed By: #### L 501.4700, [id number] #### [facility] [address] [place], [address] Glucose [Mass/Vol] 93 mg/dL Normal 74-106 [facility] Comment on above: Performed By: #### L 501.4700, [id number] #### [facility] [address] [place], [address] Potassium [Moles/Vol] 3.7 mmol/L Normal 3.5-5.1 [facility] Comment on above: Performed By: #### L 501.4700, [id number] #### [facility] [address] [place], [address] Sodium [Moles/Vol] 139 mmol/L Normal 136-145 [facility] Comment on above: Performed By: #### L 501.4700, [id number] #### [facility] [address] [place], [address] T PROT 8.1 g/dL Normal 6.4-8.2 [facility] Comment on above: Performed By: #### L 501.4700, [id number] #### [facility] [address] [place], [place], [id number] Urea nitrogen [Mass/Vol] 11 mg/dL Normal 7-18 [facility] Comment on above: Performed By: #### L 501.4700, [id number] #### [facility] [address] [place], [address] INR in Blood by Coagulation assayOrdered By: Oriana Li on 03-29-2023 INR Coag (Bld) [Relative time] 1.1 {INR} [facility] - CoagulationOrde red By: Oriana Li on 03-29-2023 PT Coag (PPP) [Time] 13.8 s 11.7-14.9 [facility] Absolute lymphocyte countOrd ered By: Oriana Li on 03-24-2023 Lymphocytes Auto (Unsp spec) [#/Vol] 2.33 10*3/uL 0.83-4.51 [facility] Basophil percentageOrdered B y: Oriana Li on 03-24-2023 Basophils/100 WBC (Bld) 0.9 % 0-1 [facility] Bilirubin [Mass/Vol] 0.70 mg/dL 0.20-1.00 [facility] Comment on above: For patients on eltr ombopag therapy, use of Dimension Birdseye TBIL is not recommended. Chloride [Moles/Vol] 108 mmol/L 98-107 [facility] Cholesterol [Mass/Vol] 159 mg/dL <200 [facility] Comment on above: <200 mg/dL Desirable 200-240 mg/dL Borderline >240 mg/dL High Risk Eosinophils/100 WBC (Bld) 0.4 % 0-5 [facility] Glucose [Mass/Vol] 113 mg/dL 74-106 [facility] Comment on above: Fasting Glucose resu lt from 100 to 125 mg/dL suggests IMPAIRED HOMEOSTASIS per A.D.A. criteria. Neutrophils (Bld) [#/Vol] 3.6 10*3/uL 2.0-7.7 [facility] Neutrophils/100 WBC (Bld) 54.4 % 47-70 [facility] Potassium [Moles/Vol] 3.9 mmol/L 3.5-5.1 [facility] Protein [Mass/Vol] 7.2 g/dL 6.4-8.2 [facility] Sodium [Moles/Vol] 141 mmol/L 136-145 [facility] Triglyceride [Mass/Vol] 105 mg/dL <199 [facility] Comment on above: The drugs N-Acetylcy steine and Metamizole may falsely depress this assay.Serum Triglycerides Reference Interval Normal <150 mg/dL Borderline high 150 - 199 mg/dL High 200 - 499 mg/dL Very High > or = 500 mg/dL WBC (Bld) [#/Vol] 6.7 10*3/uL 4.4-11.0 [facility] Blood erythrocytes count (nu mber/volume)Ordered By: Oriana Li on 03-24-2023 RBC (Bld) [#/Vol] 4.43 10*6/uL 4.2-5.4 [facility] Blood hemoglobin measurement (mass/volume)Ordered By: Oriana Li on 03-24-2023 Hemoglobin (Bld) [Mass/Vol] 13.4 g/dL 12.0-15.0 [facility] Blood lymphocytes/100 leukoc ytesOrdered By: Oriana Li on 03-24-2023 Lymphocytes/100 WBC (Bld) 34.9 % 19-41 [facility] Blood monocytes/100 leukocyt esOrdered By: Oriana Li on 03-24-2023 Monocytes/100 WBC (Bld) 9.3 % 0-10 [facility] Blood platelet mean volumeOr dered By: Oriana Li on 03-24-2023 Platelet mean volume (Bld) [Entitic vol] 11.6 fL 6.2-12.0 [facility] Determination of erythrocyte mean corpuscular volume (MCV)Ordered By: Oriana Li on 03-24-2023 MCV (RBC) [Entitic vol] 93.2 fL 81-99 [facility] Hematocrit Auto (Bld) [Volum e fraction]Ordered By: Oriana Li on 03-24-2023 Hematocrit (Bld) [Volume fraction] 41.3 % 37-47 [facility] - Chemistry and C hemistry - challengeOrdered By: Oriana Li on 03-24-2023 ALP [Catalytic activity/Vol] 75 U/L 45-117 [facility] ALT [Catalytic activity/Vol] 194 U/L 13-56 [facility] CO2 [Moles/Vol] 22.0 mmol/L 21.0-32.0 [facility] Globulin (S) [Mass/Vol] 4.0 g/dL 2.2-4.2 [facility] Urea nitrogen/Creatinine [Mass ratio] 11.0 mg/mg 10-20 [facility] - Hematology and Cell countsOrdered By: Oriana Li on 03-24-2023 Erythrocyte distribution width (RBC) [Entitic vol] 43.4 fL 35.1-43.9 [facility] Erythrocyte distribution width (RBC) [Ratio] 12.7 % 11.6-14.6 [facility] Immature granulocytes/100 WBC (Bld) 0.100 % 0.0-0.9 [facility] Comment on above: IG% - Immature Granu locytes (promyelocytes, myelocytes and metamyelocytes) > 1% indicates that a LEFT SHIFT is Present. MCH (RBC) [Entitic mass] 30.2 pg 27.0-32.0 [facility] Nucleated RBC/100 WBC (Bld) [Ratio] 0 % 0-5 [facility] MCHC Auto (RBC) [Mass/Vol]Or dered By: Oriana Li on 03-24-2023 MCHC (RBC) [Mass/Vol] 32.4 g/dL 32-36 [facility] No Panel InformationOrdered By: Oriana Li on 03-24-2023 Estimated GFR (MDRD) Amer 121 mL/min >60 [facility] Comment on above: GFR Calc Estimated GFR (MDRD) Non-Af Amer 100 mL/min >60 [facility] Comment on above: Non- GFR Calc Thyroid Stimulating Hormone (TSH) 2.08 uIU/mL 0.358-3.74 [facility] Platelets bldOrdered By: Faisal Li on 03-24-2023 Platelets (Bld) [#/Vol] 195 10*3/uL 150-450 [facility] Serum or plasma albumin cherise urement (mass/volume)Ordered By: Oriana Li on 03-24-2023 Albumin [Mass/Vol] 3.2 g/dL 3.2-5.0 [facility] Serum or plasma albumin/glob ulin mass ratioOrdered By: Oriana Li on 03-24-2023 Albumin/Globulin [Mass ratio] 0.8 {ratio} 0.9-2.4 [facility] Serum or plasma calcitriol m easurement (mass/volume)Ordered By: Oriana Li on 03-24-2023 1,25-dihydroxyvitamin D3 [Mass/Vol] 69.7 pg/mL 24.8-81.5 [facility] Comment on above: Performed at: [address] [id number] Director: Julianna Garvin MD, Phone: [phone] Serum or plasma calcium cherise urement (mass/volume)Ordered By: Oriana Li on 03-24-2023 Calcium [Mass/Vol] 8.8 mg/dL 8.5-10.1 [facility] Serum or plasma cholesterol in HDL measurement (mass/volume)Ordered By: Oriana Li on 03-24-2023 Cholesterol in HDL [Mass/Vol] 61 mg/dL >40 [facility] Comment on above: The drugs N-Acetylcy steine and Metamizole may falsely depress this assay. Reference Range HDL <40 mg/dL Low HDL Cholesterol HDL >or= 60 mg/dL High HDL Cholesterol Serum or plasma cholesterol in VLDL measurement (mass/volume)Ordered By: Oriana Li on 03-24-2023 Cholesterol in VLDL [Mass/Vol] 21 mg/dL 5-40 [facility] Serum or plasma creatinine m easurement (mass/volume)Ordered By: Oriana Li on 03-24-2023 Creatinine [Mass/Vol] 0.73 mg/dL 0.55-1.02 [facility] Comment on above: The validity of the calculated GFR & GFRAA in patients over 70 years has not been determined. Clinical correlation is essential. Serum or plasma low density lipoprotein (LDL) cholesterol measurement (mass/volume)Ordered By: Oriana Li on 03-24-2023 Cholesterol in LDL [Mass/Vol] 77 mg/dL 0-130 [facility] Serum or plasma urea nitroge n measurement (mass/volume)Ordered By: Oriana Barnetteugene on 03-24-2023 Urea nitrogen [Mass/Vol] 8 mg/dL 7-18 [facility] Thin prep Papanicolaou smear with manual screeningOrdered By: Oriana Barnetteugene on 03-24-2023 Thin prep Papanicolaou smear with manual screening 212 U/L 15-37 [facility] Thin prep Papanicolaou smear with manual screening 11 5-15 [facility] Whole blood hemoglobin A1c/t otal hemoglobin ratio (mass fraction)Ordered By: Oriananolan Li on 03-24-2023 HbA1c (Bld) [Mass fraction] 5.1 % 3.8-5.6 [facility] Comment on above: Normal < 5.7 % Predi abetic 5.7 - 6.4 % Diabetic >or= 6.5 % Please note range changes. Basophil percentageOrdered B y: Colt Allan on 10-07-2022 Potassium [Moles/Vol] 3.9 mmol/L 3.5-5.1 [facility] Cervical or vagninal specime n microscopic examination by cytology stain (reported ason 03-17-2022 Cytology report Cyto stain Doc (Cvx/Vag) Comment . [facility] Work Phone: Comment on above: The Pap smear is a s creening test designed to aid in thedetection of premalignant and malignant conditions of theuterine cervix. It is not a diagnostic procedure andshould not be used as the sole means of detecting cervicalcancer. Both false-positive and false-negative reports dooccur. Laboratory - Cytologyon [facility] Cyto stain Nom (Cvx/Vag) [ID] Comment . [facility] Work Phone: Comment on above: Renetta Malcolm, Solar Power Installer (ASCP) Laboratory - Miscellaneous t estson 03-17-2022 Service comment (Unsp spec) [Interp] Comment . [facility] Work Phone: Comment on above: This liquid based Th inPrep(R) pap test was screened withthe use of an image guided system. Service comment (Unsp spec) [Interp] . . [facility] Work Phone: No Panel Informationon 03-17 Human Papillomavirus Screen Comment . [facility] Work Phone: Comment on above: The HPV DNA reflex c jadeosvaldo were not met with this specimenresult therefore, no HPV testing was performed.Performed at: [address] [id number] Director: Yanely Marcus MD, Phone: [phone] Pathology report final diagnosis Narrative Comment . [facility] Work Phone: Comment on above: NEGATIVE FOR INTRAEP ITHELIAL LESION OR MALIGNANCY. Laboratory - Microbiology an d Antimicrobial susceptibilityon 02-15-2022 SARS-CoV-2 (COVID-19) RNA AMALIA+probe Ql (Unsp spec) Not detected [facility] Work Phone: No Panel Informationon 02-15 Influenza Types A,B Rapid (Clinic) Not detected [facility] Work Phone: Basophil percentageon 2021 Potassium [Moles/Vol] 4.3 mmol/L 3.5-5.1 [facility] Work Phone: CNOVon 09-27-2017 CNOV Office Visit (PEMDNA) MELISSA MARRUFO ([id number]) 1995 [facility] Time Provider Department09/27/17 8:00 AM MADALYN HELM PEMDNA During your visit today, we recorded the following information about you: Temperature Pulse Respiration Blood pressure 98.9 degrees 72/minute 16/minute 120/86 Weight Last Period 84.5 kg 09/23/17Madalyn Helm DO 09/27/2017 9:35 AM SignedPediatric Integrative MedicinePatient Name: Melissa MarrufoMRN: [id number] Service: Pediatric Integrative MedicineRequesting Provider: Karl Ramirez LMTOpinion/advice regarding: trigeminal neuralgiaCopy of note will be sent to referring provider by US mailHPI: This is a 22 year old female who presents with cheek pain since . Has been taking Lyrica and ibuprofen for 2 years. Pain is achy, constant.Had nerve block with no improvement. Pain was 6-7/ 10, now 3-4 /10. Lyrica ishelping , Advil stopped working.Fell in 2012, fell [...] SURGICAL HISTORYProcedure Laterality Date- ORAL SURGERY PROCEDURE [place] [facility]ethFAMILY HISTORY:FAMILY HISTORYProblem Relation Age of Onset- [...] ear to nose at 100 microamperes for [employer],neuroma, 58/01 40,13/396,783Pain decreased from 4/10 to 3/10ASSESSMENT AND PLAN:22 year old female with Trigeminal NeuralgiaContinue current medications.Will discuss with Physiatry about further recommendationsThanks for this consultation. Please page if any questions or concernsSIGNATURE: Madalyn Helm D.O.Pediatric Pediatric Integrative MedicinePAGER: [phone] of SERVICE: September 27, 2017TIME of SERVICE: 8:00 amReferring Provider: AIDAN DEAN [[id number]]Allergies As of Date: 09/27/2017 Noted Allergy ReactionCYMBALTA [...] List As Of Date: 09/27/2017(None)Encounte r Number: [id number] Status:Closed by MADALYN HELM DO on 09/27/17 [facility] PROGRESSon 09-27-2017 PROGRESS HNO ID: [id number]: Madalyn GentileeService: (none)Author Type: PhysicianType: Progress NotesFiled: 09/27/2017 9:35 AMNote Text:Pediatric Integrative MedicinePatient Name: Melissa MarrufoMRN: [id number] Service: Pediatric Integrative MedicineRequesting Provider: Karl Ramirez [...] SURGICAL HISTORYProcedure Laterality Date- ORAL SURGERY PROCEDURE [place] TeethFAMILY HISTORY:FAMILY HISTORYProblem Relation Age of Onset- [...] concernsSIGNATURE: Madalyn Helm D.O.Pediatric Pediatric Integrative MedicinePAGER: [phone] of SERVICE: September 27, 2017TIME of SERVICE: 8:00 am Normal [facility] Vital Signs Date Time Vital Sign Value Performing Clinician Facility 01-23-2025 09:13-0400 Body mass index (BMI) [Ratio] 26.54 kg/m2 Henrik Thomae DO Work Phone: [facility] 01-23-2025 09:13-0400 Body weight 67.95 kg Henrik Thomae DO Work Phone: [facility] 01-23-2025 09:13-0400 Diastolic blood pressure 77 mm[Hg] Henrik Thomae DO Work Phone: [facility] 01-23-2025 09:13-0400 Heart rate 67 /min Henrik Thomae DO Work Phone: [facility] 01-23-2025 09:13-0400 SaO2% (BldA) [Mass fraction] 97 % Henrik Thomae DO Work Phone: [facility] 01-23-2025 09:13-0400 Systolic blood pressure 126 mm[Hg] Henrik Thomae DO Work Phone: [facility] 01-25-2024 08:52-0400 Body height 160 cm Henrik Thomae DO Work Phone: [facility] 01-25-2024 08:52-0400 Body mass index (BMI) [Ratio] 31.07 kg/m2 Henrik Thomae DO Work Phone: [facility] 01-25-2024 08:52-0400 Body weight 79.56 kg Henrik Thomae DO Work Phone: [facility] 01-25-2024 08:52-0400 Diastolic blood pressure 77 mm[Hg] Henrik Thomae DO Work Phone: 3([phone])[phone] [place] [address] 01-25-2024 08:52-0400 Heart rate 60 /min Henrik Spencre DO Work Phone: 8(857)[phone] [place] [address] 01-25-2024 08:52-0400 SaO2% (BldA) [Mass fraction] 98 % Henrik Mosqueraae DO Work Phone: 6(665)794-175283 [place] [address] 01-25-2024 08:52-0400 Systolic blood pressure 116 mm[Hg] Henrik Thomae DO Work Phone: 5(845)322-844583 [place] [address] 07-20-2023 15:48-0500 Body mass index (BMI) [Ratio] 35.43 kg/m2 Henrik Thomae DO Work Phone: 6(395)750-204483 [place] [address] 07-20-2023 15:48-0500 Body weight 90.72 kg Henrik Mosqueraae DO Work Phone: 7(135)[phone] [place] [address] 06-19-2023 09:30-0500 Body height 160 cm Henrik Mosqueraae DO Work Phone: 1(366)881-874883 [place] [address] 06-19-2023 09:30-0500 Body mass index (BMI) [Ratio] 35.43 kg/m2 Henrik Thomae DO Work Phone: 8(637)505-821183 [place] [address] 06-19-2023 09:30-0500 Body weight 90.72 kg Henrik Thomae DO Work Phone: [phone] [place] [address] 03-23-2023 11:28-0500 Body height 160.[address] Harry Farncis [place] [facility] 03-23-2023 11:27-0500 Body mass index (BMI) [Ratio] 36.7 kg/m2 Dr. Harry Francis [facility] 03-23-2023 11:27-0500 Body weight [address] Harry Francis [place] [facility] 03-23-2023 11:27-0500 Diastolic blood pressure 84 mm[Hg] Dr. Harry Francis [facility] 03-23-2023 11:27-0500 Systolic blood pressure 119 mm[Hg] Dr. Harry Francis [facility] 03-17-2022 11:36-0400 Body height 160.[address] Harry Francis Work Phone: [facility] Work Phone: 03-17-2022 11:36-0400 Body mass index (BMI) [Ratio] 34 kg/m2 Dr. Harry Francis Work Phone: [facility] Work Phone: 03-17-2022 11:36-0400 Body weight 87.[address] Harry Francis Work Phone: [facility] Work Phone: 03-17-2022 11:36-0400 Diastolic blood pressure 87 mm[Hg] Dr. Harry Francis Work Phone: [facility] Work Phone: 03-17-2022 11:36-0400 Systolic blood pressure 137 mm[Hg] Dr. Harry Francis Work Phone: [facility] Work Phone: 02-15-2022 09:35-0400 Body temperature 98 [degF] Dr. aHrry Francis Work Phone: [facility] Work Phone: 02-15-2022 09:35-0400 Diastolic blood pressure 86 mm[Hg] Dr. Harry Francis Work Phone: [facility] Work Phone: 02-15-2022 09:35-0400 Heart rate 89 /min Dr. Harry Francis Work Phone: [facility] Work Phone: 02-15-2022 09:35-0400 Respiratory rate 14 /min Dr. Harry Francis Work Phone: [facility] Work Phone: 02-15-2022 09:35-0400 SaO2% (BldA) [Mass fraction] 98 % Dr. Harry Francis Work Phone: [facility] Work Phone: 02-15-2022 09:35-0400 Systolic blood pressure 124 mm[Hg] Dr. Harry Francis Work Phone: [facility] Work Phone: Encounters Encounter Date Encounter Type Care Provider Facility Start: 01-23-2025 End: 01-23-2025 Office outpatient visit 25 minutes Henrik Spencer DO Work Phone: [facility] Comment on above: Metabolic dysfunctio n-associated steatohepatitis (MASH) (Primary Dx) Start: 01-23-2025 End: 01-23-2025 ambulatory [facility] Ambulatory Start: 01-01-2025 End: 01-01-2025 ambulatory Melissa Isidro [employer] Work Phone: -Laboratory Start: 01-01-2025 End: 01-01-2025 Patient encounter procedure Melissa Isidro [employer] Work Phone: -Laboratory Work Phone: Start: 01-01-2025 End: 01-01-2025 ambulatory Colt Lemus Facility:[facility] Start: 11-29-2024 End: 11-29-2024 ambulatory Melissa Isidro [employer] Work Phone: -Ultrasound [facility] Start: 11-29-2024 End: 11-29-[address] Henrik Spencer DO -Ultrasound [facility] Work Phone: Start: 11-29-2024 End: 11-29-2024 ambulatory Henrik Spencer Facility:[facility] Start: 04-08-2024 Encounter for gynecological examination (general) (routine) without abnormal findings Oriana Li [facility] Start: 04-08-2024 End: 04-08-2024 ambulatory Oriana Li Facility:[facility] Start: 01-25-2024 End: 01-25-2024 Office outpatient visit 15 minutes Henrik Spencer DO Work Phone: [facility] Comment on above: Nonalcoholic fatty l iver disease (Primary Dx) Start: 01-19-2024 End: 01-19-2024 ambulatory Henrik Thomae Facility:[facility] Start: 01-17-2024 End: 01-17-2024 ambulatory Henrik Thomae Facility:[facility] Start: 07-20-2023 End: 07-20-2023 Office outpatient visit 25 minutes Henrik R Thomae DO Work Phone: [facility] Comment on above: Nonalcoholic fatty l iver disease (Primary Dx) Start: 06-19-2023 End: 06-19-2023 Office outpatient new 45 minutes Henrik R Thomae DO Work Phone: [facility] Comment on above: Elevated liver enzym es (Primary Dx) Start: 04-03-2023 End: 04-03-[address] Harry Francis [facility] Work Phone: Start: 04-03-2023 End: 04-03-[address] Harry Francis [facility] Work Phone: Start: 03-29-2023 End: 03-29-[address] Mcdonald [facility] Work Phone: Start: 03-29-2023 End: 03-29-[address] Mcdonald [facility] Work Phone: Start: 03-24-2023 End: 03-24-[address] [facility] Start: 03-24-2023 End: 03-24-[address] Mcdonald [facility] Work Phone: Start: 03-23-2023 End: 03-23-[address] Harry Francis [facility] Work Phone: Start: 10-07-2022 End: 10-07-2022 ambulatory [facility] Work Phone: Start: 10-07-2022 End: 10-07-2022 Patient encounter procedure [facility] Work Phone: Start: 03-17-2022 End: 03-17-[address] Harry Francis Work Phone: [facility] Work Phone: Start: 03-17-2022 End: 03-17-[address] [facility] Start: 03-17-[address] Lázaro Francis Work Phone: [facility] Start: 03-17-2022 End: 03-17-[address] Harry Francis Work Phone: [facility] Start: 03-17-2022 End: 03-17-[address] Harry Francis Work Phone: [facility] Start: 02-15-2022 End: 02-15-[address] Harry Francis Work Phone: [facility] Start: 11-29-[address] Harry Francsi Work [facility]: [facility] [facility] Start: 10-02-2021 End: 10-02-2021 Patient encounter procedure [facility] Start: 07-19-2021 End: 07-19-2021 Discharged Recurring [facility] Start: 09-27-2017 End: 09-29-2017 Ambulatory MADALYN HELM [facility] Procedures Date Procedure Procedure Detail Performing Clinician Start: 01-23-2025 Follow-up visit Follow-up HENRIK SPENCER Start: 11-29-2024 Ultrasound elastogra phy of liver Melissa MIRAMONTES Work Phone: Start: 04-03-2023 Ultrasound elastogra phy of liver Dr. Harry Francis Start: 03-17-2022 Microscopic observat ion [Identifier] in Cervix by Cyto stain Henrik Spencer DO Work Phone: Start: 12-26-2018 Microscopic observat ion [Identifier] in Cervix by Cyto stain Henrik Spencer DO Work Phone: Plan of Treatment Date Care Activity Detail Author Start: 2043 Zoster Vaccines (1 of 2) Zoste r Vaccines (1 of 2) [facility] Start: 04-09-2025 Yearly Adult Physical Yearly Adult P hysical [facility] Start: 03-17-2025 Screening for malign ant neoplasm of cervix [facility] Start: 01-23-2025 End: 01-23-2025 Patient encounter procedure 01/23/2025 9:15 AM EDT Office Visit [facility] [address] [place] [address] Henrik Spencer DO [address] [facility], [facility] [address] [place] [address] [facility] Start: 01-13-2025 COVID-19 Vaccine ( season) COVID-19 Vaccine ( season) [facility] Start: 01-13-2025 Influenza vaccination Influenza Vacc ine (#1) [facility] Start: 01-25-2024 End: 01-25-2024 Patient encounter procedure 01/25/2024 9:00 AM EDT Office Visit [facility] [address] [place] [id number] Henrik Spencer DO [address] [facility], [address] [place] [id number] [facility] Start: 01-20-2024 End: 07-19-2024 Liver Elastography (Fibroscan) Liver Elastography (Fibroscan) GI Routine Nonalcoholic fatty liver disease Expected: 01/20/2024, Expires: 07/19/2024 [facility] Work Phone: Comment on above: Expected: 01/20/2024 , Expires: 07/19/2024 Start: 01-14-2024 COVID-19 Vaccine ( season) COVID-19 Vaccine ( season) [facility] Start: 01-14-2024 Influenza vaccination Influenza Vacc ine (#1) [facility] Start: 07-20-2023 End: 07-20-2023 Patient encounter procedure 07/20/2023 3:45 PM EST Office Visit [facility] [address] [place] [id number] Henrik Spencer DO [address] [facility], [address] [place] [address] [facility] Start: 07-20-2023 End: 07-19-2024 Comprehensive metabolic 2000 panel - Serum or Plasma Comprehensive Metabolic Panel Lab Routine Nonalcoholic fatty liver disease Expected: 07/20/2023 (Approximate), Expires: 07/19/2024 [facility] Service Area Work Phone: Comment on above: Expected: 07/20/2023 (Approximate), Expires: 07/19/2024 Start: 06-19-2023 End: 06-19-2024 Alpha-1 Antitrypsin Phenotype Alpha-1 Antitrypsin Phenotype Lab Routine Elevated liver enzymes Expected: 06/19/2023 (Approximate), Expires: 06/19/2024 [facility] Work Phone: Comment on above: Expected: 06/19/2023 (Approximate), Expires: 06/19/2024 Start: 06-19-2023 End: 06-19-2024 Ferritin [Mass/volume] in Serum or Plasma Ferritin Lab Routine Elevated liver enzymes Expected: 06/19/2023 (Approximate), Expires: 06/19/2024 [facility] Work Phone: Comment on above: Expected: 06/19/2023 (Approximate), Expires: 06/19/2024 Start: 06-19-2023 End: 06-19-2024 Iron and Iron binding capacity panel - Serum or Plasma Iron and TIBC Lab Routine Elevated liver enzymes Expected: 06/19/2023 (Approximate), Expires: 06/19/2024 [facility] Work Phone: Comment on above: Expected: 06/19/2023 (Approximate), Expires: 06/19/2024 Start: 06-19-2023 End: 06-19-2024 Mitochondria Ab [Presence] in Serum by Immunofluorescence Anti-Mitochondrial Antibody Lab Routine Elevated liver enzymes Expected: 06/19/2023 (Approximate), Expires: 06/19/2024 [facility] Work Phone: Comment on above: Expected: 06/19/2023 (Approximate), Expires: 06/19/2024 Start: 06-19-2023 End: 06-19-2024 Nuclear Ab [Presence] in Serum by Hep2 substrate MONSE with Reflex to BEATRIZ Lab Routine Elevated liver enzymes Expected: 06/19/2023 (Approximate), Expires: 06/19/2024 [facility] Work Phone: Comment on above: Expected: 06/19/2023 (Approximate), Expires: 06/19/2024 Start: 06-19-2023 End: 06-19-2024 Smooth muscle Ab [Presence] in Serum by Immunofluorescence Anti-Smooth Muscle Antibody Lab Routine Elevated liver enzymes Expected: 06/19/2023 (Approximate), Expires: 06/19/2024 [facility] Service Area Work Phone: Comment on above: Expected: 06/19/2023 (Approximate), Expires: 06/19/2024 Start: 01-13-2023 COVID-19 Vaccine ( season) COVID-19 Vaccine () [facility] Start: 01-13-2023 Influenza vaccination Influenza Vacc ine (#1) [facility] Start: 03-17-2022 Liquid based cervica l cytology screening [facility] Work Phone: Start: 12-26-2021 Screening for malign ant neoplasm of cervix [facility] Start: 2020 HPV Vaccines (1 - 3- dose standard series) HPV Vaccines (1 - 3-dose standard series) [facility] Start: 2014 Screening for malign ant neoplasm of cervix HPV/Cotest [facility] Start: 2012 Hepatitis A Vaccines (1 of 2 - Risk 2-dose series) Hepatitis A Vaccines (1 of 2 - Risk 2-dose series) [facility] Start: 2012 Hepatitis B Vaccines (1 of 3 - 19+ 3-dose series) Hepatitis B Vaccines (1 of 3 - 19+ 3-dose series) [facility] Start: 2011 Hepatitis C screening Hepatitis C Sc reening [facility] Start: 2006 Varicella vaccination Varicell a Vaccines (1 of 2 - 13+ 2-dose series) [facility] Start: 2004 DTaP/Tdap/Td Vaccine s (6 - Tdap) DTaP/Tdap/Td Vaccines (6 - Tdap) [facility] Start: 09-29-1998 Varicella vaccination Varicell a Vaccines (1 of 2 - 2-dose childhood series) [facility] Start: 1993 Hepatitis B Vaccines (1 of 3 - 3-dose series) Hepatitis B Vaccines (1 of 3 - 3-dose series) [facility] Start: 1993 HIV screening HIV Screening [facility] Start: 1993 Lipid panel Lipid Panel [facility] Start: 1993 Yearly Adult Physical Yearly Adult P hysical [facility] Ceruloplasmin [Mass/ volume] in Serum or Plasma [facility] Copper [Moles/volume ] in Serum or Plasma [facility] Hepatitis A virus Ig M Ab [Presence] in Serum [facility] Hepatitis B core ant ibody measurement, IgM type [facility] Hepatitis B surface antigen measurement [facility] Hepatitis C antibody measurement [facility] Path report.final Dx Spec [facility] Work Phone: Payers Date Payer Category Payer Self-pay [id number] 2023 Self-pay [id number] 2022 Managed Care (Private) [facility] [id number] 2022 Unknown [id number] 2015 Unknown [id number] 1995 Unknown [id number] Unknown [id number] Unknown [id number] Unknown [id number] Unknown [id number] Unknown [id number] Social History Date Type Detail Facility Start: 02-27-2020 End: 02-27-2020 Tobacco smoking status NHIS Unknown if ever smoked [facility] Start: 1995 Sex Assigned At Female [facility] Start: 06-19-2023 Tobacco smoking stat us NHIS Never smoked tobacco [facility] Work Phone: Start: 06-19-2023 Tobacco use and exposure Smokeless tobacco non-user [facility] Work Phone: Start: 06-19-2023 End: 01-23-2025 Alcohol intake Lifetime non-drinker (finding) [facility] Work Phone: Start: 1995 [facility] Start: 06-19-2023 End: 01-23-2025 Gender identity Not on file [facility] Work Phone: Start: 06-09-2023 End: 01-25-2024 Exposure to SARS-CoV-2 (event) Not sure [facility] Start: 06-19-2023 End: 01-23-2025 History of Social function [facility] Work Phone: Start: 04-09-2022 Sex Female [facility] Goals Date Patient Goal Desired Activity /State Clinical Notes 03-17-2022 to 01-23-2025 Henrik Spencer, DO - 01/23/2025 9:15 AM EDTHenrik Spencer, DO - 01/25/2024 9:00 AM EDTDadayne Spencer, DO - 07/20/2023 3:45 PM ESTDadayne Spencer, DO - 06/19/2023 9:15 AM EST Note Date & Type Note Facility 01-23-2025 History of Present illness Narrative Subjective Patient ID: Melissa Marrufo is a 29 y.o. female who presents for Follow-up (Pt presents today as a one year follow up for non-alcoholic fatty liver. Pt states she has felt fine since last visit and has no complaints today. Pt does have copies of most recent scan and and blood work to discuss also. ). HPI Patient seen today in follow-up for fatty liver. She has lost 20 pounds since last visit BMI is down to 27. Despite this her FibroScan follow-up shows worsening fibrosis now moderate severe F2-F3. Transaminases are normal. Review of Systems Constitutional: Negative. Negative for chills, fever and unexpected weight change. HENT: Negative. Negative for congestion and trouble swallowing. Eyes: Negative. Respiratory: Negative. Negative for cough, shortness of breath and wheezing. Cardiovascular: Negative. Negative for chest pain. Gastrointestinal: Negative for abdominal distention, abdominal pain, blood in stool, constipation, diarrhea, nausea and vomiting. Endocrine: Negative. Genitourinary: Negative. Negative for difficulty urinating. Musculoskeletal: Negative for arthralgias and joint swelling. Skin: Negative for color change. Neurological: Negative. Negative for dizziness, speech difficulty, light-headedness and headaches. Hematological: Negative. Psychiatric/Behavioral: Negative for confusion and sleep disturbance. Objective Physical Exam Constitutional: General: She is awake. Appearance: Normal appearance. HENT: Head: Normocephalic and atraumatic. Mouth/Throat: Mouth: Mucous membranes are moist. Eyes: Extraocular Movements: Extraocular movements intact. Cardiovascular: Rate and Rhythm: Normal rate and regular rhythm. Heart sounds: Normal heart sounds. Pulmonary: Effort: Pulmonary effort is normal. No respiratory distress. Breath sounds: Normal air entry. No wheezing or rhonchi. Abdominal: General: Bowel sounds are normal. There is no distension. Palpations: Abdomen is soft. Tenderness: There is no abdominal tenderness. Musculoskeletal: Cervical back: Full passive range of motion without pain. Right lower leg: No edema. Left lower leg: No edema. Skin: General: Skin is warm. Neurological: General: No focal deficit present. Mental Status: She is alert and oriented to person, place, and time. Mental status is at baseline. Motor: Motor function is intact. Psychiatric: Attention and Perception: Attention and perception normal. Mood and Affect: Mood normal. Speech: Speech normal. Behavior: Behavior normal. Assessment/Plan Diagnoses and all orders for this visit: Metabolic dysfunction-associated steatohepatitis (MASH) Discussed medical therapy including option of Jeni, she wanted to research meds and will contact my office regarding treatment once she decides. Henrik Spencer DO 01/23/25 12:45 PM documented in this encounter [facility] Work Phone: 11-29-2024 Radiology Diagnostic study note [facility] Imaging Services [address] [place] [address] ABD Limited w/ Elastography MR#: [id number] Acct: [id number] Name: MELISSA MARRUFO Rep #: [id number] : 1995 F 29 From: Mario White MD PCP: FE Davidson Status: REG CLI Study:ABD Limited w/ Elastography Date of Exa m: 11/29/24 Exam# [id number] Ordering Dr: Caleb Spencer DO PROCEDURE: ABD LIMITED W/ ELASTOGRAPHY REASON FOR EXAM: FATTY LIVER COMPARISON: Prior study dated January 19, 2024. TECHNIQUE: Right upper quadrant abdominal ultrasound. Michael ElastQ Imaging shear wave elastography for non-invasive assessment of liver tissue stiffness. Michael EPIQ [...] measurement may be in question. Reading Location: [place] [address] CC: RETAIL SALESMANJeb Isidro; Dr. Henrik Spencer DO ~ Meal Grinder Tender: Signed [facility] 01-25-2024 History of Present illness Narrative Subjective [...] 01/25/24 1:18 PM documented in this encounter [facility] Work Phone: 07-20-2023 History of Present illness Narrative Subjective Patient ID: Melissa Marrufo is a 28 y.o. female who presents for Follow-up (Patient was having some elevated liver enzymes, had labs completed for today at [facility]. ). HPI Melissa is seen today in follow-up. Transaminases have stabilized this lab work for treatable liver disease have returned negative. Her FibroScan done in [place] did show mild steatohepatitis. I advise she [...] 07/20/23 5:19 PM documented in this encounter [facility] Work Phone: 06-19-2023 History of Present illness Narrative Subjective Patient ID: Melissa Marrufo is a 28 y.o. female who presents for New Patient Visit (Pt seen today for elevated liver enzymes blood work at [facility]. Patient denies any GI complaints at this [...] would recommend liver biopsy and referral to military analyst. Henrik Spencer DO 06/19/23 9:35 AM documented in this encounter [facility] Work Phone: 03-17-2022 Note [facility] Work Phone: Pap Smear Specimen Adequacy March 17, 2022 12:37pm Comment . Satisfactory for evaluation. Endocervical and/or squamous metaplasticcells (endocervical component) are present. Comment on above: Satisfactory for lexy luation. Endocervical and/or squamous metaplasticcells (endocervical component) are present. Evaluation note No assessment information availa ble [facility] Work Phone: Evaluation note Diagnosis Onset Date Acute upper respiratory infection acute Contact with or suspected ex posure to other viral communicable disease acute [id number] acute [facility] Work Phone: Evaluation note* Diagnosis Onset Date Resolution Status BMI 36.0-36.9,adult acute Other obesity acute Encounter for routine gynecological examination noneactive [facility] Work Phone: Evaluation note* Diagnosis Elevated liver enzymes- Primary Other nonspecific abnormal serum enzyme levels documented in this encounter [facility] Work Phone: Evaluation note* Diagnosis Nonalcoholic fatty liver disease- Primary documented in this encounter [facility] Work Phone: Evaluation note* Diagnosis Nonalcoholic fatty liver disease- Primary documented in this encounter [facility] Work Phone: Evaluation note* Diagnosis Metabolic dysfunction-associated steatohepatitis (MASH)- Primary documented in this encounter [facility] Work Phone: Reason for referral (narrative)No reason for [facility] Work [facility]: Summary Purpose Family History No Family History Records Found Relationship Condition Age at Onset Recorded Date/T christie Not Specified Diabetes mellitus Unknown Anxiety Unknown Myocardial infarction Unknown Hypertension Unknown Advance Directives No Advanced Directives Records Found Advance Directive Response Recorded Date/ Time Living Will No April 08, 017 10:26am Power of Family Nurse No April 08, 2017 10:26am Advance Directive Response Recorded Date/ Time Living Will No April 08 017 9:26am Power of Family Nurse No April 08, 2017 9:26am Chief Complaint and Reason for Visit Chief Complaint LATERAL EPICONDYLITI S. PT HAS RX SKIN Chief Complaint L LATERAL EPICONDYLI TIS. 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 CREELER) E ORDERS Reason for Visit BMI 36.0-36.9,adult Other obesity Encounter for routine gynecological examination Chief Complaint Annual (TUFTING CREELER) E ORDERS INT LABS Reason for Visit BMI 36.0-36.9,adult Other obesity Encounter for routine gynecological examination Chief Complaint Annual (TUFTING CREELER) E ORDERS INT LABS Abnormal levels of other serum enzymes Reason for Visit BMI 36.0-36.9,adult Other obesity Encounter for routine gynecological examination Chief Complaint Admit Date FATTY LIVER November 29, 2024 7:11 am Chief Complaint Admit Date FATTY LIVER November 29, 2024 7:11 am LABS/2 ORDERING DRS/PAPER ORDERS BOTH NE ANNED January 01, 2025 6:03am Reason for Referral Specialty Diagnoses / Procedures Referred By Contac t Referred To Contact Gastroenterology Diagnoses Nonalcoholic fatty liver disease Procedures Liver Elastography (Fibroscan) Henrik Spencer, [address] [facility], [address] [address] Referral ID Status Reason Start Date Expiration Date V isits Requested Visits Authorized [id number] Pending Review 07/20/2023 07/19/2024 1 1 Additional Source Comments INFORMATION SOURCE (unrecogn ized section and content) DATE CREATED AUTHOR 11/01/2017 [facility] DATE CREATED AUTHOR AUTHOR'S ORGANIZ ATION 01/08/2025 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 Relationship Specialty Start Date End Date Melissa Isidro APRN-NETWORK INTERN [place] [address] PCP - General Family Medicine 04/14/23 Shot Core Drill Operator Helper Relationship Specialty Start Date End Date Melissa Isidro APRN-NETWORK INTERN [place] [address] PCP - General Family Medicine 04/14/23 Shot Core Drill Operator Helper Relationship Specialty Start Date End Date Melissa Isidro APRN-NETWORK INTERN [place] [address] PCP - General Family Medicine 04/14/23 Henrik Spencer DO [address] [place] [address], [place] [id number] PCP - MMO ACO PCP 07/14/23 Team Status: Active Member Role/Relationship Status Dates Melissa Isidro RETAIL SALESMAN-C Primary Care Provider Active Team Status: Inactive Member Role/Relationship Status Dates Melissa Isidro RETAIL SALESMAN-C Primary Care Provider Active Start: November 29, 2024 End: November 29, 2024 Dr. Henrik Spencer DO Attending Provider Active S tart: November 29, 2024 End: November 29, 2024 Dr. Henrik Spencer DO Referring Provider Active S tart: November 29, 2024 End: November 29, 2024 Team Status: Inactive Member Role/Relationship Status Dates Melissa Isidro RETAIL SALESMAN-C Primary Care Provider Active Start: January 01, 2025 End: January 01, 2025 ANGELES BRIDGES Attending Provider Active Start: Adelaida espitia 2024 End: January 01, 2025 ANGELES BRIDGES Referring Provider Active Start: Adelaida espitia 2024 End: January 01, 2025 Dr. 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, [address] [address] PCP - MMO ACO PCP 07/14/23 Reason for Visit (unrecogniz ed section and content) Reason Comments New Patient Visit Pt seen today for el evated liver enzymes blood work at [facility]. Patient denies any GI complaints at this time. Reason Comments Follow-up Patient was having s ome elevated liver enzymes, had labs completed for today at [facility]. Reason Comments Follow-up Patient in office fo r 6 month follow up; ultrasound results in mailbox this morning for review. No concerns at this time. Reason Comments Follow-up Pt presents today as a one year follow up for non-alcoholic fatty liver. Pt states she has felt fine since last visit and has no complaints today. Pt does have copies of most recent scan and and blood work to discuss also. FOR RECORDS PERTAINING TO PATIENTS WHO ARE [...] BE BASED ON THE PRIMARY CLINICAL RECORDS. [employer] provides no warranty or guarantee of the accuracy or completeness of information in this document.
[2025-05-02 08:29] LABS: AST(SGOT) 21 U/L (<=31); Alanine Aminotransfer ALT/SGPT 22 U/L (<=34); Albumin, Serum 4.5 g/dL (3.5-5.0); Alkaline Phosphatase 51 U/L (35-104); Bilirubin, Direct 0.37 mg/dL (0.00-0.30); Globulin 2.9 g/dL (2.2-4.2)
== END | disposition home or self-care (01) ==
LOC: LAB 06:15
PROVIDERS: PCP Nurse Practitioner Family; Referring Provider Internal Medicine; Visit Provider Internal Medicine
DX: K75.81 Nonalcoholic steatohepatitis (NASH) (principal)
CPT/HCPCS: 36415; 80076